=== PATIENT | female | born 1945 | race Caucasian/White ===

== ENCOUNTER → 2017-07-19 | Outpatient (CLI) | payer OTHER ==
[~2017-07-19] MED LIST: ASPI1TAB83 PO; FERR325T5 PO; FURO-85 PO; L-ME1CAP3 PO; LISI-461 PO; LPT10 PO; LXP/20 PO; MAGN400T6 PO; MIRA1TAB3 PO; OMEG10007 PO; OMEP20CA9 PO; REPA1TAB42 PO; ROPI1TAB29 PO; TRAZ50TA35 PO; VLTG EXT
--- NOTE | 2017-07-19 13:35 | MAMMOGRAPHY REPORT ---
BILATERAL DIGITAL SCREENING MAMMOGRAM WITH CAD: 07/19/2017 CLINICAL HISTORY: Routine screening. Patient has no complaints. TECHNIQUE: Current study was also evaluated with a Computer Aided Detection (CAD) system. Bilateral CC and MLO views were obtained. COMPARISON: Comparison is made to exams dated: 07/17/2016 mammogram, 01/23/2016 mammogram, 07/21/2015 m ammogram, 07/15/2015 mammogram, 07/12/2014 mammogram, and 02/08/2014 mammogram - [facility] enter. BREAST COMPOSITION: There are scattered areas of fibroglandular density in both breasts. FINDINGS: No suspicious masses, calcifications, or areas of architectural distortion are noted in ei ther breast. There has been no significant interval change compared to prior exams. Scattered bilater al benign-appearing calcifications are not significantly changed. A biopsy marker clip is again note d within the left breast. IMPRESSION: ACR BI-RADS CATEGORY 2: BENIGN There is no mammographic evidence of malignancy. A 1 year screening mammogram is recommended. The pa tient will receive written notification of the results. Approximately 10% of breast cancers are not detected with mammography. A negative mammographic report should not delay biopsy if a clinically suggestive mass is present. Gina Zhang M.D. /:07/19/2017 07:51:39 Pricer Bagger: Magnolia SCHMID(Marta)(Von)(BD), [facility] letter sent: Normal 1/2 BI-RADS Code: ACR BI-RADS Category 2: Benign
== END | disposition home or self-care (01) ==
LOC: C.MAMM 07:26
PROVIDERS: ATTEND Family Medicine
DX: Z12.31 Encounter for screening mammogram for malignant neoplasm of breast (principal)

== ENCOUNTER 2019-12-08 09:54 | Inpatient (IN) ==
--- NOTE | 2019-11-10 13:22 | PAT Medication Instructions ---
Medication Instructions Date of Service November 10, 2019 Home Medications Medication Instructions Recorded oxybutynin chloride 5 mg tablet 5 mg PO TID #270 tab 10/26/19 mirabegron 50 mg tablet,extended release 24 hr 50 mg PO Q2D onabotulinumtoxinA 100 unit solution for injection 1 unit SUBCUT UD oxybutynin chloride 5 mg tablet 5 mg PO TID aspirin [Aspirin Low Dose] 81 mg PO HS atorvastatin 10 mg PO QPM diphenhydramine HCl 25 mg PO DAILY PRN dulaglutide [Trulicity] 0.75 mg SUBCUT Q10D gabapentin 200 mg PO HS lansoprazole 15 mg PO QAM lisinopril 10 mg PO QAM magnesium oxide 500 mg PO BID metformin 500 mg PO QPM vm-nc-ad1-xmj-ocd-wlh-flx-lact [Dry Eye Formula] 1 cap PO TID valacyclovir [Valtrex] 500 mg PO QAM [PreserVision AREDS-2] 1 tab PO QAM vitamin B complex 1 tab PO QAM Continue as directed onabotulinumtoxinA 100 unit solution for injection 1 unit SUBCUT UD dulaglutide [Trulicity] 0.75 mg SUBCUT Q10D ASK your surgeon for instructions aspirin [Aspirin Low Dose] 81 mg PO HS DO NOT take the morning of surgery mirabegron 50 mg tablet,extended release 24 hr 50 mg PO Q2D oxybutynin chloride 5 mg tablet 5 mg PO TID diphenhydramine HCl 25 mg PO DAILY PRN lisinopril 10 mg PO QAM magnesium oxide 500 mg PO BID valacyclovir [Valtrex] 500 mg PO QAM Take morning of surgery With a small sip of water, OTHERWISE NOTHING TO EAT OR DRINK AFTER MIDNIGHT: lansoprazole 15 mg PO QAM valacyclovir [Valtrex] 500 mg PO QAM Take evening before surgery mirabegron 50 mg tablet,extended release 24 hr 50 mg PO Q2D oxybutynin chloride 5 mg tablet 5 mg PO TID aspirin [Aspirin Low Dose] 81 mg PO HS atorvastatin 10 mg PO QPM diphenhydramine HCl 25 mg PO DAILY PRN (if needed) gabapentin 200 mg PO HS magnesium oxide 500 mg PO BID metformin 500 mg PO QPM xx-ml-qw0-ncx-fij-ymt-flx-lact [Dry Eye Formula] 1 cap PO TID Other Notes If you have any questions please call us at [phone] or [phone] or [phone] or [phone]
--- NOTE | 2019-11-10 14:48 | Anesthesiology Consultation ---
Date of Service November 10, 2019 Assessment & Plan (1) Encounter for pre-operative examination: CHECK BSG AM DOS Chart Review Chart Review: Acceptable Risk for Surgery and Patient seen in Pre Admission Testing Teaching & Discussion Instructed NPO after midnight before surgery, except medications with 15 cc of water. Medication instructions provided according to the PAT guidelines. History Height/Weight Height: 5 ft 1 in Weight: 81.647 kg Allergies Allergy/AdvReac Type Severity Reaction Status Date / Time No Known Drug Allergies Allergy Verified 11/09/19 15:38 Medications Home Medications Medication Instructions Recorded Confirmed Last Taken mirabegron 50 mg tablet,extended 50 mg PO Q2D #90 tab 08/20/19 11/09/19 Unknown release 24 hr onabotulinumtoxinA 100 unit 1 unit SUBCUT UD #1 ea 08/20/19 11/09/19 Unknown solution for injection oxybutynin chloride 5 mg tablet 5 mg PO TID #270 tab 10/26/19 11/09/19 Unknown aspirin [Aspirin Low Dose] 81 mg PO HS 11/09/19 11/09/19 Unknown atorvastatin 10 mg PO QPM 11/09/19 11/09/19 Unknown diphenhydramine HCl 25 mg PO DAILY PRN 11/09/19 11/09/19 Unknown dulaglutide [Trulicity] 0.75 mg SUBCUT Q10D 11/09/19 11/09/19 Unknown gabapentin 200 mg PO HS 11/09/19 11/09/19 Unknown lansoprazole 15 mg PO QAM 11/09/19 11/09/19 Unknown lisinopril 10 mg PO QAM 11/09/19 11/09/19 Unknown magnesium oxide 500 mg PO BID 11/09/19 11/09/19 Unknown metformin 500 mg PO QPM 11/09/19 11/09/19 Unknown xu-zq-gf9-rxr-ihq-vkd-flx-lact 1 cap PO TID 11/09/19 11/09/19 Unknown [Dry Eye Formula] valacyclovir [Valtrex] 500 mg PO QAM 11/09/19 11/09/19 Unknown vit C,U-Zr-hhsqw-lutein-zeaxan 1 tab PO QAM 11/09/19 11/09/19 Unknown [PreserVision AREDS-2] vitamin B complex 1 tab PO QAM 11/09/19 11/09/19 Unknown Past Medical History Medical History Abnormal EKG Per cardiology, "chronic age undetermined septal infarction pattern, this is been evaluated in the past, and has been unchanged since 2008." Anxiety Depression Diabetes mellitus, type 2 NIDDM GERD (gastroesophageal reflux disease) History of esophageal dilatation Hyperlipidemia Hypertension Migraine hx Pancreatitis (Chronic) ~2014 RLS (restless legs syndrome) (Chronic) Schatzki's ring (Chronic) Sleep apnea cpap Syncope Three episodes in 2015. Cardiac workup included echo, event monitor and tilt- table test, all negative. Determined to be "swallow syncope," as episodes were preceded by patient ingesting hot liquid. Follows with [facility] in [place], Dr. Cristiano Greenfield--office note 09/28/19 scanned to EMR). 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 No episodes since 2014. Exercise / Class Metabolic Activity II 4-5 Yardwork/Stairs/Walk up hill Past Family History Family History Unknown Heart disease Lymphoma Father Hypertension Other No family history of adverse response to anesthesia Past Surgical History Surgical History H/O breast biopsy L breast, metal marker remains H/O release of tendon right wrist H/O tubal ligation History of adenoidectomy History of cardiac cath 2008 @ [facility]. no stents History of carpal tunnel release right History of colonoscopy History of endoscopic sinus surgery History of esophagogastroduodenoscopy (EGD) History of open reduction and internal fixation (ORIF) procedure right wrist Hx of tonsillectomy S/P Botox injection into bladder for urinary incontinence Past Anesthesia History No Hx of Anesthesia Complications and No Family Hx of Anesthesia Complications (other than PONV) History of PONV No Hx of PONV and No Hx of Motion Sickness Social History Smoking Status: Never smoker Do You Dip or Chew Tobacco: No Hx Alcohol Use: Yes Alcohol type: beer, wine and hard liquor alcohol intake frequency: a few times a week Hx Substance Use: No substance use type: does not use Review of Systems Pt denies any recent chest pain, shortness of breath, palpitations, cough, fever or URI. Physical Exam Vital Signs BP: 121/78 P: 77bpm SPO2: 98% RA T: 97.9 F R: 16 ENMT Mouth: + dental restorations (few implants); no chipped teeth and no loose teeth Thyromental Distance: > or= 3.5 Finger Breadths (3.5) Mallampati Class: I Neck normal visual inspection; neck extension not limited Respiratory normal respiratory effort Auscultation: lungs clear to auscultation bilaterally Cardiovascular Rate/Rhythm: regular rate and regular rhythm Heart Sounds: no murmur Vessels: no carotid bruit Extremities: no edema Testing Laboratory Results 11/10/19 15:00 11/10/19 15:00 PT 10.3 Seconds (9.0-12.0) 11/10/19 15:00 INR 1.0 (0.9-1.1) 11/10/19 15:00 APTT 24.8 Seconds (21.0-31.0) 11/10/19 15:00 Electrocardiogram Date: 05/12/19 Findings: + NSR @ (65bpm) Anterolateral infarct (cited on or before 09/13/09). No significant change from 05/07/18. Chest X-Ray Date: 11/10/19 Findings: + NAD Chronic interstitial thickening. Echocardiogram Date: 02/14/15 EF: > 70% 1. A complete two-dimensional transthoracic echocardiogram was performed (2D, M- mode, Doppler and color flow Doppler). 2. The study was technically difficult, but visualization was adequate with the administration of Definity ultrasound contrast. 3. The left ventricular wall motion is normal. 4. No regional wall motion abnormalities noted. 5. The LV Ejection Fraction = >70 %. 6. There is normal left ventricular wall thickness. 7. There is mild mitral regurgitation. 8. Diastolic dysfunction, Grade II (pseudonormalization pattern). 9. Compared to the prior study dated 01/28/14, the trace MR noted in 2013 is now felt to be mild in severity.
--- NOTE | 2019-11-10 15:43 | XRay Report ---
TWO VIEW CHEST CLINICAL HISTORY: Preoperative examination. FINDINGS: PA and lateral chest radiographs are compared to study dated 12/20/2015 and correlated with chest CT dated 11/13/2015. The heart is top normal for projection. The pulmonary vasculature is nonco ngested. Chronic interstitial thickening is similar to previous. There is bibasilar scarring/atelecta sis. No airspace consolidation or pleural effusion is identified. There is no pneumothorax. The skele luly structures are osteopenic. Degenerative change and hyperkyphosis are noted in the thoracic spine. The bony thorax appears intact. IMPRESSION: No active disease in the chest. Electronically signed by: To Nicole M.D. 11/10/2019 3:42 PM
[2019-11-10 16:08] LABS: Basophils # (auto) 0.03 K/uL (0-0.2); Basophils % (auto) 0.4 %; Eosinophils # (auto) 0.35 K/uL (0-0.5); Eosinophils % (auto) 4.2 %; Hematocrit (blood only) 42.8 % (37-47); Hemoglobin 14.7 g/dL (12.0-16.0); Immature Granulocytes # (auto) 0.02 K/uL (0.00-0.02); Immature Granulocytes % (auto) 0.2 %; Lymphocytes # (auto) 3.04 K/uL (1.2-3.4); Lymphocytes % (auto) 36.8 %; Mean Corpuscular Hemoglobin 33.6 pg (25-34); Mean Corpuscular Hgb Conc 34.3 g/dL (32-36); Mean Corpuscular Volume 97.9 fL (80-100); Mean Platelet Volume 9.4 fL (7.4-10.4); Monocytes # (auto) 0.85 K/uL (0.11-0.59); Monocytes % (auto) 10.3 %; Neutrophils # (auto) 3.97 K/uL (1.4-6.5); Neutrophils % (auto) 48.1 %; Platelet Count 187 K/uL (130-400); RDW Coefficient of Variation 12.3 % (11.5-14.5); RDW Standard Deviation 44.2 fL (36.4-46.3); Red Blood Count 4.37 M/uL (4.2-5.4); White Blood Count 8.26 K/uL (4.8-10.8)
[2019-11-10 16:13] LABS: BUN Creatinine Ratio 21.8 (10-20); Est GFR (African American) 88.8; Est GFR (Non-African American) 76.6; Potassium 4.4 mmol/L (3.5-5.1)
[2019-11-10 16:18] LABS: Partial Thromboplastin Ratio 0.9; Partial Thromboplastin Time 24.8 Seconds (21.0-31.0); Prothrombin Time 10.3 Seconds (9.0-12.0)
--- NOTE | 2019-12-05 12:13 | History and Physical Report ---
DATE OF ADMISSION: 12/08/2019 CHIEF COMPLAINT: Right ankle pain. HISTORY OF PRESENT ILLNESS: The patient is a 74-year-old female diabetic who I have been treating for the past 4 years for ankle degenerative joint disease. We have been treating her with extensive conservative treatment including various medicines, injections, rocker bottom shoes, etc. Symptoms were pretty manageable initially but become less manageable over the past year. Pretty minimal response to injection. Her ankle hurts all the time. She limps when she walks. The more she walks, the more it hurts. She would like to have her ankle fixed/views. PAST MEDICAL HISTORY: 1. Diabetes x25 years. 2. Hypertension. 3. Elevated cholesterol. 4. Sleep apnea with CPAP machine. 5. Gastroesophageal reflux disease. 6. Obesity with a BMI of 34. 7. Back and neck pain. PAST SURGICAL HISTORY: Includes: 1. Right wrist fracture treated with ORIF in 1999. 2. A carpal tunnel release done at that time of wrist fracture. 3. De Quervain's release in 2012. 3. Tubal ligation 1971. 4. Tonsillectomy in 1951. ALLERGIES: None. CURRENT MEDICINES: Include: 1. Trulicity. 2. Metformin. 3. Atorvastatin. 4. Toviaz. 5. Lisinopril. 6. Valacyclovir. 7. Magnesium. 8. Fish oil. 9. Baby aspirin. 10. Vitamin B complex. 11. AREDS2. SOCIAL HISTORY: A 74-year-old female. She does not smoke. No significant alcohol intake. FAMILY HISTORY: Noncontributory. REVIEW OF SYSTEMS: Negative for DVT or PE. She has been a long-term diabetic and says her hemoglobin A1c is well controlled. Denies any current chest pain or shortness of breath. No history of DVT or PE. No known bleeding problems. PHYSICAL EXAMINATION: GENERAL: Reveals a healthy, pleasant middle-aged female, looks to be in pretty good health. HEENT: Benign. NECK: Supple, no lymphadenopathy. LUNGS: Clear to auscultation. HEART: Has a regular rate and rhythm. ABDOMEN: Soft, nontender, nondistended. EXTREMITIES: Grossly neurovascularly intact except as follows. Examination of the right ankle reveals patient ambulates with a limp. She does clearly favor this ankle. She has fairly neutral alignment to her ankle. She has got bony hypertrophy diffusely. She is tender diffusely. Motion is limited with about neutral dorsiflexion and plantarflexion to 20 degrees. She is neurologically intact. X-RAYS: X-rays of the right ankle revealed advanced ankle degenerative joint disease. She has complete loss of her joint space. Fairly good positioning and alignment otherwise. Subtalar joint looks pretty good. ASSESSMENT: A 74-year-old female diabetic with advanced right ankle degenerative joint disease. She has failed conservative treatment and would like to have her right ankle fused. We did talk about ankle replacement, but she preferred effusion. PLAN: We are going to take her to the operating room and do a right ankle fusion/arthrodesis. We will keep her in the hospital overnight. The risks and benefits of this procedure were explained to the patient including but not limited to DVT, PE, , infection, neurological injury, vascular injury, bleeding problem, pain, limited range of motion, stiffness, failure to relieve symptoms, incomplete relief of symptoms, need for further surgery in future, fracture, leg length inequality, nerve palsy, etc. The patient understands and decided to proceed. Informed consent was obtained. We gave her a script for a scooter for postoperative mobilization. We will likely give her a script for a wheelchair as well. She is planning to be discharged to home. We will keep her in the hospital overnight for pain control.
[~2019-12-08 09:54] MED LIST changes: +ACETAMINOPHEN 500 MG TAB PO SCH; -ASPI1TAB83 PO; +CEFAZOLIN 2000MG 2,000 MG/15 ML SYR IV SCH; -FERR325T5 PO; -FURO-85 PO; -L-ME1CAP3 PO; -LISI-461 PO; -LPT10 PO; +LR 15ML/HR IV SCH; +LR 60ML/HR IV SCH; -LXP/20 PO; -MAGN400T6 PO; -MIRA1TAB3 PO; -OMEG10007 PO; -OMEP20CA9 PO; -REPA1TAB42 PO; -ROPI1TAB29 PO; +ROPIVACAINE 0.5% 5 MG/ML 30 ML VIAL ONE; -TRAZ50TA35 PO; -VLTG EXT
--- NOTE | 2019-12-08 10:48 | History & Physical Bridge Note ---
Date of Service December 08, 2019 History & Physical Bridge Note I have examined the patient, reviewed the History & Physical and in the interval since the performance of the History & Physical I have noted the following changes of clinical significance: no changes noted
[2019-12-08] MEDS ORDERED: ONDANSETRON INJ 2 MG/ML 2 ML VIAL ONE (11:44)
[2019-12-08] MEDS ORDERED: MIDAZOLAM HCL 1 MG/ML 2ML VIAL ONE (11:44)
[2019-12-08] MEDS ORDERED: DEXAMETHASONE SOD INJ 4 MG/ML VIAL ONE (11:44)
[2019-12-08] MEDS ORDERED: fentaNYL citrate 100 MCG/2 ML VIAL ONE ×3 (11:44→15:06)
[2019-12-08] MEDS ORDERED: PROPOFOL IV EMULSION 10 MG/ML 20 ML VIAL IV ONE ×2 (11:44→14:14)
[2019-12-08] MEDS ORDERED: LIDOCAINE HCL 2% 2 ML VIAL/AMP(20MG/ML) INFIL ONE (11:44)
[2019-12-08] MEDS ORDERED: ATROPINE SULFATE 0.1 MG/ML 10ML SYR IV PRN (12:44)
[2019-12-08] MEDS ORDERED: LABETALOL HCL IV 5 MG/ML 20ML IV PRN (12:44)
[2019-12-08] MEDS ORDERED: ONDANSETRON INJ 2 MG/ML 2 ML VIAL IV PRN ×2 (12:44→17:46)
[2019-12-08] MEDS ORDERED: fentaNYL citrate 100 MCG/2 ML VIAL IV PRN (12:44)
[2019-12-08] MEDS ORDERED: BACITRACIN INJ 50,000 UNIT VIAL ONE ×2 (13:07→15:35)
[2019-12-08] MEDS ORDERED: BUPIVACAINE/EPINEPHRINE 0.5% MPF 1:200,000 10 ML VIAL ONE (13:14)
[2019-12-08] MEDS ORDERED: GLYCOPYRROLATE 0.2 MG/ML VIAL ONE (13:33)
[2019-12-08] MEDS ORDERED: NEOSTIGMINE METHYLSULFATE 5 MG/5 ML SYR ONE (13:33)
[2019-12-08] MEDS ORDERED: ePHEDrine sulfate 50 MG/ML SYR ONE (13:47)
[2019-12-08] MEDS ORDERED: PHENYLEPHRINE 100MCG/ML 5ML SYR ONE (13:47)
[2019-12-08] MEDS ORDERED: THROMBIN FOR SOLN 20000 UNIT KIT ONE (15:46)
[2019-12-08] MEDS ORDERED: GELATIN SPONGE SZ 100 ONE (15:46)
--- NOTE | 2019-12-08 15:46 | Fluoroscopy Report ---
FL ankle RT min 3V RTN CLINICAL HISTORY: RT ANKLE FUSION COMPARISON STUDY: None FLUOROSCOPY TIME: 34 seconds NUMBER OF FLUOROSCOPIC IMAGES: 3 FINDINGS: Findings consistent with resection of the distal fibula. Multiple screws traversing the talocalcaneal joint. This is consistent with that of a fusion type pro cedure. Alignment appears to be anatomic. IMPRESSION: Anatomic alignment post right ankle fusion. ACT 112: Negative or not required by law. The above report was generated using voice recognition software. It may contain grammatical, syntax or spelling errors. Electronically signed by: Jairo Cottrell M.D. 12/08/2019 3:45 PM
[2019-12-08] MEDS ORDERED: GELATIN SPONGE SZ 100 EXT PRN (16:09)
[2019-12-08] MEDS ORDERED: THROMBIN 5000 UNITS KIT TOP SCH (16:15)
--- NOTE | 2019-12-08 16:28 | Post Operative Brief Note ---
PG Immediate Post Op with CF Date of Surgery December 08, 2019 Pre & Post Diagnosis Operation Date: 12/08/19 12:30 Pre-Op Diagnosis: Right ankle degenerative joint disease Post-Op Diagnosis: Right ankle degenerative joint disease I identified the patient and participated in the time-out.: Yes Procedure Operation Date: 12/08/19 12:30 Actual Procedures p Right Ankle Fusion(Right) - Ivan Jacobs MD Surgeon Ivan Jacobs MD Automatic Die Cutting Machine Operator Rojelio, PAC Estimated Blood Loss 100 Findings Consistent with Post-Op Diagnosis Fluids 1400 cc Specimens Specimen Description: None, as per surgeon Anesthesia Type General Regional Complications none Disposition Accompanied Patient To Recovery: No Disposition: Recovery Room
--- NOTE | 2019-12-08 17:14 | Anesthesiology Progress Note ---
Date of Service December 08, 2019 Anesthesia Post Procedure Vital Signs Vital Signs: Temp Pulse Pulse Resp BP Pulse Ox 12/08/19 17:00 72 12 118/63 98 12/08/19 16:50 94 H 15 131/70 100 12/08/19 16:40 75 18 118/75 99 12/08/19 16:32 36.3 C L 87 17 116/78 99 12/08/19 11:10 36.8 C 80 18 145/91 H 97 Pain Intensity Right Ankle: Pain Intensity: 0 Transfer of Care Handoff Completed per policy Notes Mental Status: alert / awake / arousable Patient Amnestic to Procedure: Yes Nausea / Vomiting: adequately controlled Pain: adequately controlled Airway Patency, RR, SpO2: stable & adequate BP & HR: stable & adequate Hydration State: stable & adequate Anesthetic Complications: no major complications apparent and Pt Satisfied with anesthetic care
[2019-12-08] MEDS: SODIUM CHLORIDE 0.9% 1000ML 1,000 ML IV SCH (17:20)
[2019-12-08] MEDS ORDERED: GLUCOSE 10 TABS/TUBE PO PRN (17:46)
[2019-12-08] MEDS ORDERED: METOCLOPRAMIDE HCL INJ 5 MG/ML 2 ML VIAL IV PRN (17:46)
[2019-12-08] MEDS ORDERED: GLUCAGON FOR INJ 1 MG VIAL SQ PRN (17:46)
[2019-12-08] MEDS ORDERED: GLUCOSE 40% GEL 15 GM TUBE PO PRN (17:46)
[2019-12-08] MEDS ORDERED: DEXTROSE 50% 50 ML SYRINGE IV PRN (17:46)
[2019-12-08] MEDS ORDERED: CARBOHYDRATES FOR HYPOGLYCEMIA PO PRN (17:46)
[2019-12-08] MEDS ORDERED: NON-FORMULARY MEDICATION (Dulaglutide [Trulicity] 0.75 MG) SQ SCH (17:46)
[2019-12-08] MEDS ORDERED: PHARMACY GLYCEMIC MGMT CONSULT STA (17:46)
[2019-12-08] MEDS ORDERED: HYDROmorphone HCL 2 MG TAB PO PRN (17:46)
[2019-12-08] MEDS ORDERED: NALOXONE HCL 0.4 MG/1 ML VIAL/CARP IV PRN (17:46)
[2019-12-08] MEDS ORDERED: MAGNESIUM HYDROXIDE SUSP 30 ML UDC PO PRN (17:46)
[2019-12-08] MEDS ORDERED: bisacodyL 10 MG SUPP PR PRN (17:46)
[2019-12-08] MEDS ORDERED: ALUMINUM/MAGNESIUM SUSP 30 ML UDC PO PRN (17:46)
[2019-12-08] MEDS ORDERED: HYDROmorphone INJ 0.5 MG/0.5 ML SYR IV PRN (17:46)
[2019-12-08] MEDS ORDERED: PHARMACY GLYCEMIC MGMT CONSULT PRN (17:59)
[2019-12-08] MEDS: ASCORBIC ACID 500 MG TAB PO SCH (19:02)
[2019-12-08] MEDS: KETOROLAC TROMETHAMINE 15 MG/ML VIAL IV SCH (19:36)
--- NOTE | 2019-12-08 20:51 | Pharmacy Report ---
Pharmacy Glycemic Short Note 2 - Date of Service December 08, 2019 - Glycemic Short BSG Results (Last 24 hours): 12/08/19 12/08/19 12/08/19 10:28 16:36 17:28 POC Glucose 109 H 146 H 142 H OUTPATIENT ANTIDIABETIC REGIMEN: * Trulicity 0.75mg & Metformin ASSESSMENT: * Type 2 DM S/P Right ankle fusion. She received Dexamethasone 4mg IV x1. Blood sugars thus far have been close to goal. Since patient did receive dexamethasone will set parameters between stress of 2 and 3, with overnight checks. Will adjust based on BSG's. * Hemoglobin A1C pending with am labs. * Ordered T2DM diet PLAN FOR INPATIENT GLYCEMIC CONTROL: * Hold outpatient oral diabetes medications * Bolus insulin * NovoLog per scale ACHS or Q6hrs while NPO * Goal Range: Low 110 mg/dL - High 140 mg/dL * Correction Factor: 25 mg/dL/unit * Nutritional / Prandial insulin per carb ratio of 1 unit per 8 grams CHO consumed * Will add 0000,0400 checks
[2019-12-08] MEDS ORDERED: GABAPENTIN 100 MG CAP PO SCH (21:00)
[2019-12-08] MEDS ORDERED: ATORVASTATIN 10 MG TAB PO SCH (21:00)
[2019-12-08] MEDS ORDERED: SENNA 8.6 MG TAB PO SCH (21:00)
[2019-12-08] MEDS ORDERED: [UNRECOGNIZED DRUG - OTHER] PO SCH (21:00)
[2019-12-08] MEDS: ASPIRIN 81 MG ECTAB PO SCH (21:19)
[2019-12-08] MEDS: OXYBUTYNIN CHLORIDE 5 MG TAB PO SCH (21:19)
[2019-12-08] MEDS: DOCUSATE SODIUM 100 MG CAP PO SCH (21:19)
[2019-12-08] MEDS: MAGNESIUM OXIDE 400 MG TAB PO SCH (21:19)
[2019-12-08] MEDS: CEFAZOLIN 2000MG 2,000 MG/15 ML SYR IV SCH (21:19)
[2019-12-08] MEDS: TAPENTADOL HCL ER 50 MG TABCR PO SCH (21:19)
[2019-12-08] MEDS: ACETAMINOPHEN 500 MG TAB PO SCH (21:19)
[2019-12-08] MEDS: INSULIN ASPART 100 UNITS/ML 3 ML PEN SC SCH (21:50)
[2019-12-08] MEDS ORDERED: INSULIN GLARGINE SOLOSTAR 100 UNITS/ML 3 ML PEN SC ONE (22:00)
[2019-12-09] MEDS: KETOROLAC TROMETHAMINE 15 MG/ML VIAL IV SCH ×3 (00:01→13:13)
[2019-12-09] MEDS: INSULIN ASPART 100 UNITS/ML 3 ML PEN SC SCH ×4 (00:12→13:14)
[2019-12-09] MEDS ORDERED: COUGH DROP (SUGAR FREE) LOZ 24 LOZ/1 BOX BUCCAL ONE (00:15)
[2019-12-09] MEDS ORDERED: COUGH DROP (SUGAR FREE) LOZ 24 LOZ/1 BOX BUCCAL PRN (00:49)
[2019-12-09] MEDS: SODIUM CHLORIDE 0.9% 1000ML 1,000 ML IV SCH (03:02)
[2019-12-09] MEDS: CEFAZOLIN 2000MG 2,000 MG/15 ML SYR IV SCH (03:04)
[2019-12-09] MEDS: ACETAMINOPHEN 500 MG TAB PO SCH ×2 (05:25→13:13)
[2019-12-09 06:56] LABS: Estimated Average Glucose 111 mg/dl; Hemoglobin A1C 5.5 % (4.5-5.6)
--- NOTE | 2019-12-09 07:54 | Anesthesiology Progress Note ---
Date of Service December 09, 2019 Anesthesia Post Procedure Vital Signs Vital Signs: Temp Pulse Pulse Resp BP Pulse Ox 12/09/19 07:33 36.6 C 74 15 102/66 97 12/09/19 03:08 36.4 C L 86 14 103/64 96 12/08/19 23:26 36.9 C 101 H 16 99/61 L 93 12/08/19 20:39 36.8 C 82 16 102/62 93 12/08/19 19:22 36.6 C 87 15 121/72 94 12/08/19 18:41 36.5 C 71 16 109/68 99 12/08/19 17:54 36.8 C 67 16 111/65 96 12/08/19 17:20 36.8 C 76 15 118/71 99 12/08/19 17:10 36.4 C L 69 17 128/65 97 12/08/19 17:00 72 12 118/63 98 12/08/19 16:50 94 H 15 131/70 100 12/08/19 16:40 75 18 118/75 99 12/08/19 16:32 36.3 C L 87 17 116/78 99 12/08/19 11:10 36.8 C 80 18 145/91 H 97 Pain Intensity Right Ankle: Pain Intensity: 0 Notes Mental Status: alert / awake / arousable and participated in evaluation Patient Amnestic to Procedure: Yes Nausea / Vomiting: adequately controlled Pain: adequately controlled Airway Patency, RR, SpO2: stable & adequate BP & HR: stable & adequate Hydration State: stable & adequate Anesthetic Complications: no major complications apparent
[2019-12-09] MEDS ORDERED: lisinopriL 10 MG TAB PO SCH (09:00)
[2019-12-09] MEDS ORDERED: VALACYCLOVIR HCL 500 MG TABLET PO SCH (09:00)
[2019-12-09] MEDS ORDERED: PANTOprazole 40 MG TAB PO SCH (09:00)
[2019-12-09] MEDS ORDERED: CEROVITE ADV FORMULA TAB PO SCH (09:00)
[2019-12-09] MEDS ORDERED: MULTIVITAMIN TAB PO SCH (09:00)
[2019-12-09] MEDS ORDERED: VITAMIN B COMPLEX TAB PO SCH (09:00)
[2019-12-09] MEDS: MAGNESIUM OXIDE 400 MG TAB PO SCH (09:08)
[2019-12-09] MEDS: ASPIRIN 81 MG ECTAB PO SCH (09:08)
[2019-12-09] MEDS: ASCORBIC ACID 500 MG TAB PO SCH (09:09)
[2019-12-09] MEDS: OXYBUTYNIN CHLORIDE 5 MG TAB PO SCH ×2 (09:09→13:12)
[2019-12-09] MEDS: DOCUSATE SODIUM 100 MG CAP PO SCH (09:10)
[2019-12-09] MEDS: TAPENTADOL HCL ER 50 MG TABCR PO SCH (09:23)
--- NOTE | 2019-12-09 11:29 | Pharmacy Report ---
Pharmacy Glycemic Short Note 2 - Date of Service December 09, 2019 - Glycemic Short BSG Results (Last 24 hours): 12/08/19 12/08/19 12/08/19 16:36 17:28 21:27 POC Glucose 146 H 142 H 162 H 12/09/19 12/09/19 12/09/19 00:04 03:42 08:14 POC Glucose 141 H 111 H 106 H OUTPATIENT ANTIDIABETIC REGIMEN: * Trulicity 0.75mg & Metformin ASSESSMENT: 12/09 * Mr. Burr ended up receiving 12 units of basal insulin last night when BSGs tobin above 150 mg/dL at HS * Fasting today = 106 mg/dL; no further basal insulin will be ordered today * A1c shows excellent outpatient control and patient would have Trulicity on board at this time * Expect Decadron to wear off about lunchtime today so will loosen bolus insulin parameters 12/08 * Type 2 DM S/P Right ankle fusion. She received Dexamethasone 4mg IV x1. Blood sugars thus far have been close to goal. Since patient did receive dexamethasone will set parameters between stress of 2 and 3, with overnight checks. Will adjust based on BSG's. * Hemoglobin A1C pending with am labs. * Ordered T2DM diet PLAN FOR INPATIENT GLYCEMIC CONTROL: * Hold outpatient oral diabetes medications - resume tomorrow if SCr stable, will check in AM * No further basal insulin * Bolus insulin - loosen CF/CR * NovoLog per scale ACHS or Q6hrs while NPO * Goal Range: Low 110 mg/dL - High 140 mg/dL * Correction Factor: 30 mg/dL/unit * Nutritional / Prandial insulin per carb ratio of 1 unit per 15 grams CHO consumed Discharge Recommendations: * A1c = 5.5% on 12/09/19 * Goal A1c < 7% based on age/comorbidities * Resume outpatient regimen on discharge
--- NOTE | 2019-12-09 18:47 | Operative Report ---
Post Operative Report Pre & Post Diagnosis Operation Date: 12/08/19 12:30 Pre-Op Diagnosis: Right ankle degenerative joint disease Post-Op Diagnosis: Right ankle degenerative joint disease I identified the patient and participated in the time-out.: Yes Procedure Operation Date: 12/08/19 12:30 Actual Procedures p Right Ankle Fusion(Right) - Ivan Jacobs MD Surgeon Ivan Jacobs MD Equipment Cleaner And Tester Rojelio, PAC Estimated Blood Loss 100 Findings Consistent with Post-Op Diagnosis Specimens None. Drains None. Anesthesia Type General Regional Complications none Disposition Accompanied Patient To Recovery: No Disposition: Recovery Room Indications Patient is a 74-year-old female is had a a long history of right ankle pain discomfort is gradually gotten worse over the past 4 years. We would treat her conservatively with a bracing and injections which became less successful over time. She elected proceed with a right ankle arthrodesis. Description of Procedure Operative implants consist of: 1. Synthes 7.3 mm partially-threaded/long threaded stainless steel cannulated screw. 2. Synthes 6.5 partially threaded/long threaded stainless steel screw/cannulated. 3. Synthes 6.5 partially-threaded short threaded stainless steel cannulated screw. 4. Synthes 4.0 partially threaded cancellus screw x2. Patient taken to the operating room identified and placed in the operating table supine position protectors were properly padded. IV antibiotics arrived by anesthesia team. A popliteal block and abductor canal block had provided in the holding area. General anesthetic was implemented. The patient was then placed in the semilateral position on a beanbag. All contact areas were meticulously padded. The right lower extremity was then prepped and draped in usual sterile fashion. The right leg was elevated exsanguinated exsanguinated with use of an Esmarch and the tourniquet was placed at 300 mmHg. A direct lateral approach to the fibula was then performed with a 10 to 15 cm incision beginning about 10 cm proximal tip of the fibula and then extending to the fibula and then anteriorly towards the cuboid and base of the fourth metatarsal. Sharp dissection Through subcutaneous tissue directly down the fibula. The fibula was skeletonized and then osteotomized about 8 cm proximal to the tip of the fibula. The fibula was then removed take to the back table and cut in half. At the cancellus bone from the medial half was removed and used for later graft packing. The lateral side was preserved and antibiotics of solution until ready to placed laterally as a bone plate. The lateral ankle was exposed. With use of a lamina kiln remover, sharp curette, and a bur we debrided the ankle joint of all cartilage down to the subchondral bleeding bone. I also was debrided the lateral aspect of the tibia as well as the lateral surface of the talus. Attention drawn medially. A 3 cm incision made over the anterior medial joint line to expose the medial gutter. I used a curette debride debride the medial malleolus as well as the medial border of the talus. Once this was complete I irrigated the wound extensively. We then reduced the ankle in appropriate position in about 5 degrees of valgus, 10 degrees of external rotation in neutral dorsiflexion. I then fixed it through the lateral process of the talus into the posterior aspect the tibia with a single guidewire for the 6.5 cannulated screw. I then made a stab incision several centimeters above the ankle joint posteriorly and just lateral to the Achilles tendon then placed a guidewire through the posterior tibia into the talus into the talar neck. I did have to readjust this in order to work around the other wire slightly. Position was verified I placed a 7.3 cannulated screw with a washer over the posterior guidewire which provide excellent fixation. I placed a 6.5 partially-threaded cannulated screw over the wire through the lateral process of the talus. I then made a stab incision over the medial side of the ankle about 5 cm proximal to the joint and placed a guidewire from the medial tibia and into the anterior talus. A 6.5 partially- threaded cancellus screw was placed over the guidewire provide excellent fixation. Some final x-rays were obtained and all hardware was appropriately positioned. Of note, I did pack the medial gutter as well as the some of the ankle joint with some the cancellus graft before placing the screws. I then placed the fibular graft over the lateral aspect of the ankle and fixed it proximally with a single 4.0 partially-threaded cancellus screw and then fixed distally into the talus with a similar 4.0 partially-threaded cancellus screw. I then verified the position of these screws. I then packed the lateral ankle with the remaining cancellus bone graft. I injected locally with 30 cc of half percent Marcaine with epinephrine. The tourniquet was then let down. The soft tissues of both wounds were then closed with a 2-0 Vicryl suture in a [id number] fashion. The subcutaneous tissues of all wounds including the stab incision was closed with a 2-0 Vicryl suture in buried fashion and then the skin was closed with 3-0 nylon suture in a simple fashion. The leg was then cleaned and dried a sterile dressing composed of Xeroform, 4 x 4's, ABD pads, st erile cast padding, and a well-padded posterior and stirrup splint were applied. The patient then brought out of [facility] and transferred to the recovery in stable condition. Patient tolerated procedure well there are no complications I attest to the content of the Intraoperative Record and any orders documented therein. Any exceptions are noted below.
--- NOTE | 2019-12-09 19:12 | Progress Note ---
DATE: 12/09/2019 SUBJECTIVE: A 74-year-old female postop day 1 from a right ankle arthrodesis. She is doing remarkably well. Really not having any pain. No chest pain or shortness of breath. Not feeling dizzy or lightheaded. OBJECTIVE: VITAL SIGNS: Temperature 36.9. Vital signs stable. GENERAL: Shows a pleasant elderly female. She is lying in bed with her foot propped up and looks quite comfortable. LUNGS: Clear to auscultation. HEART: Regular rate and rhythm. ABDOMEN: Soft, nontender, nondistended. EXTREMITIES: Grossly neurovascularly intact except as follows: Examination of the right lower extremity reveals the splint to be clean, dry and intact. There is no sign of drainage. Foot position looks good. Toes are pink. She can flex and extend her toes appropriately. She is neurologically intact. ASSESSMENT: A 74-year-old female postoperative day 1 from right ankle arthrodesis, doing quite well. Pain is controlled. She is neurologically intact. PLAN: 1. DVT prophylaxis including thigh-high TEDs, SCDs, and aspirin twice a day for the next month. 2. PT/OT. She is nonweightbearing on this right leg for the next 6 weeks. 3. Disposition: She is going to be discharged to home with some family support.
[2019-12-10] MEDS ORDERED: MIRABEGRON ER 25 MG TAB PO SCH (09:00)
--- NOTE | 2019-12-14 14:39 | Discharge Summary ---
ADMITTING PHYSICIAN AND SURGEON: Dr. Ivan Jacobs. ADMITTING DIAGNOSIS: Right ankle degenerative joint disease. SURGERY PERFORMED: Right ankle arthrodesis. SECONDARY DIAGNOSES: Diabetes, hypertension, elevated cholesterol, sleep apnea, gastroesophageal reflux disease, obesity, back pain and neck pain. CONSULTS: None obtained. HISTORY AND PHYSICAL EXAMINATION: Well documented in the patient's chart. HOSPITAL COURSE: The patient was admitted on 12/08/2019, underwent ankle arthrodesis as above. He tolerated the procedure well. There were no complications. She was transferred to the PACU postoperatively and later to the orthopedic floor for further care. She was given Ancef for antibiotic prophylaxis, SANDHYA stockings, SCDs and aspirin for DVT prophylaxis. Vital signs were monitored during her hospital stay and remained stable. She did not require any blood transfusions. There were no complications. By postoperative day 1, she was tolerating a diabetic diet. Pain was controlled with oral pain medicine. On postop day 1, she was discharged home. She was given printed discharge instructions as well as new prescriptions for extra strength Tylenol, aspirin and Dilaudid. Continue her home medications, continue physical therapy, nonweightbearing to the right lower extremity. Continue to elevate her right lower extremity as much as possible, keep the pressure off her heel and keep her splint and dressings clean and dry. Follow up approximately 2 weeks postoperatively or sooner if there are any problems or concerns.
== END 2019-12-09 14:41 | disposition home or self-care (01) | DRG 494 ==
LOC: ASU 09:54 → 3E 16:35

== ENCOUNTER 2021-10-23 06:33 | Inpatient (IN) ==
--- NOTE | 2021-09-06 12:51 | PAT Medication Instructions ---
Medication Instructions Date of Service September 06, 2021 Home Medications Medication Instructions Recorded hydromorphone 2 mg tablet 2 mg PO Q4H PRN #40 tab 12/24/19 ciprofloxacin HCl 500 mg tablet 500 mg PO BID 6 Days #12 tab 03/01/21 methylprednisolone 4 mg tablets in 4 mg PO USEASDIRECTD #21 tab 07/27/21 a dose pack (Medrol ([place])) aspirin 81 mg tablet,delayed release (Aspirin Low Dose) 81 mg PO HS atorvastatin 10 mg tablet 10 mg PO QPM diphenhydramine HCl 25 mg tablet 25 mg PO DAILY PRN dulaglutide 0.75 mg/0.5 mL subcutaneous pen injector (Trulicity) 0.75 mg SUBCUT Q12D gabapentin 100 mg capsule 300 mg PO BID lansoprazole 15 mg capsule,delayed release 15 mg PO QAM lisinopril 10 mg tablet 10 mg PO QAM magnesium oxide 500 mg tablet 500 mg PO BID metformin 500 mg tablet 500 mg PO QPM Dry Eye Formula 1 cap PO TID valacyclovir 500 mg tablet (Valtrex) 500 mg PO QAM vit C 250 mg-vit E 90 mg-zinc 40 mg-copper 1 [id number]-fgkuos capsule (PreserVision AREDS-2) 1 tab PO QAM vitamin B complex 1 tab PO QAM hydromorphone 2 mg tablet 2 mg PO Q4H PRN ciprofloxacin HCl 500 mg tablet 500 mg PO BID methylprednisolone 4 mg tablets in a dose pack (Medrol ([place])) 4 mg PO USEASDIRECTD Medical Marijuana 1 dose PO HS PRN cholecalciferol (vitamin D3) 25 mcg (1,000 unit) chewable tablet (Vitamin D3) 25 mcg PO QAM gabapentin 300 mg capsule 600 mg PO HS melatonin 10 mg capsule 10 mg PO HS metoclopramide HCl 5 mg tablet (Reglan) 5 mg PO QAM polyethylene glycol 3350 17 gram oral powder packet (Miralax) 17 g PO 2XWK zinc 50 mg tablet 50 mg PO QAM Continue as directed ciprofloxacin HCl 500 mg tablet 500 mg PO BID (prior to Botox treatments) dulaglutide 0.75 mg/0.5 mL subcutaneous pen injector (Trulicity) 0.75 mg SUBCUT Q12D methylprednisolone 4 mg tablets in a dose pack (Medrol ([place])) 4 mg PO USEASDIRECTD ASK your prescriber and surgeon aspirin 81 mg tablet,delayed release (Aspirin Low Dose) 81 mg PO HS STOP taking 2 weeks before surgery (or as soon as possible if surgery is within 2 weeks) PreserVision AREDS-2 1 tab PO QAM Dry Eye Formula 1 cap PO TID DO NOT take the morning of surgery diphenhydramine HCl 25 mg tablet 25 mg PO DAILY PRN lisinopril 10 mg tablet 10 mg PO QAM magnesium oxide 500 mg tablet 500 mg PO BID vitamin B complex 1 tab PO QAM cholecalciferol (vitamin D3) 25 mcg (1,000 unit) chewable tablet (Vitamin D3) 25 mcg PO QAM polyethylene glycol 3350 17 gram oral powder packet (Miralax) 17 g PO 2XWK zinc 50 mg tablet 50 mg PO QAM metoclopramide HCl 5 mg tablet (Reglan) 5 mg PO QAM Take morning of surgery With a small sip of water, OTHERWISE NOTHING TO EAT OR DRINK AFTER MIDNIGHT: gabapentin 100 mg capsule 300 mg PO BID lansoprazole 15 mg capsule,delayed release 15 mg PO QAM valacyclovir 500 mg tablet (Valtrex) 500 mg PO QAM hydromorphone 2 mg tablet 2 mg PO Q4H PRN (okay to take up to 4 hours prior to surgery if needed) Take evening before surgery atorvastatin 10 mg tablet 10 mg PO QPM diphenhydramine HCl 25 mg tablet 25 mg PO DAILY PRN (if needed) gabapentin 100 mg capsule 300 mg PO BID magnesium oxide 500 mg tablet 500 mg PO BID metformin 500 mg tablet 500 mg PO QPM hydromorphone 2 mg tablet 2 mg PO Q4H PRN (if needed) Medical Marijuana 1 dose PO HS PRN (if needed) gabapentin 300 mg capsule 600 mg PO HS melatonin 10 mg capsule 10 mg PO HS Other Notes If you have any questions please call us at [phone] or [phone] or [phone] or [phone]
--- NOTE | 2021-09-08 09:37 | Anesthesiology Consultation ---
Date of Service September 08, 2021 Assessment & Plan (1) Encounter for pre-operative examination: - COVID screening: Per assessment on 09/08: Travel screen- Returned from travel to [place] 08/31 (had appt at [facility], stayed with son, wore mask in public). Patient vaccinated. Preop COVID testing > 2 weeks after return from travel. No known COVID-19 positive contacts or current COVID-19 related symptoms. Surgeon arranging preop COVID testing. Awaiting results. - S/P Right ankle fusion (12/08/19): Grade view 2, MAC#3, ETT 7.5 at [facility] - Check BSG AM DOS Chart Review Chart Review: Acceptable Risk for Surgery (pending cardiology office visit note) and Patient seen in Pre Admission Testing Teaching & Discussion Pre-Anesthesia Teaching/Discussion Notes: Instructed NPO after midnight before surgery,except medications with 15 cc of water. Medication instructions provided according to the PAT guidelines. History Surgery Operation Date: 09/26/21 07:45 Proposed Procedures p L3-S1 Decompression Fusion Spinal Cord Monitoring - Shade Chapman DO Height/Weight Height: 5 ft 1 in Weight: 83 kg Allergies Allergy/AdvReac Type Severity Reaction Status Date / Time nickel Allergy Intermediate Rash/bleedi Verified 09/06/21 11:15 ng No Known Drug Allergies Allergy Verified 09/06/21 11:13 Medications Home Medications Medication Instructions Recorded Confirmed Last Taken aspirin 81 mg tablet,delayed 81 mg PO HS 11/09/19 09/06/21 12/07/19 21:00 release (Aspirin Low Dose) atorvastatin 10 mg tablet 10 mg PO QPM 11/09/19 09/06/21 12/07/19 21:00 diphenhydramine HCl 25 mg tablet 25 mg PO DAILY PRN 11/09/19 09/06/21 Unknown dulaglutide 0.75 mg/0.5 mL 0.75 mg SUBCUT Q12D 11/09/19 09/06/21 12/06/19 09:00 subcutaneous pen injector ([facility]) gabapentin 100 mg capsule 300 mg PO BID 11/09/19 09/06/21 12/07/19 21:00 lansoprazole 15 mg capsule,delayed 15 mg PO QAM 11/09/19 09/06/21 12/07/19 09:00 release lisinopril 10 mg tablet 10 mg PO QAM 12/16/19 10/13/21 01/13/20 09:00 magnesium oxide 500 mg tablet 500 mg PO BID 11/09/19 09/06/21 12/07/19 21:00 metformin 500 mg tablet 500 mg PO QPM 11/09/19 09/06/21 12/05/19 21:00 [id number]-dha 133 mg-epa 1 cap PO TID 11/09/19 09/06/21 12/01/19 09:00 167 tb-zhiu-ehdd-lactoferrin capsule (Dry Eye Formula) valacyclovir 500 mg tablet 500 mg PO QAM 11/09/19 09/06/21 12/07/19 09:00 (Valtrex) vit C 250 mg-vit E 90 mg-zinc 40 1 tab PO QAM 11/09/19 09/06/21 12/07/19 21:00 mg-copper 1 rw-iztyhc-lpxifl capsule (PreserVision AREDS-2) vitamin B complex 1 tab PO QAM 11/09/19 09/06/21 12/07/19 09:00 hydromorphone 2 mg tablet 2 mg PO Q4H PRN #40 tab 12/24/19 09/06/21 Unknown ciprofloxacin HCl 500 mg tablet 500 mg PO BID 6 Days #12 tab 03/01/21 09/06/21 Unknown methylprednisolone 4 mg tablets in 4 mg PO USEASDIRECTD #21 tab 07/27/21 09/06/21 Unknown a dose pack (Medrol ([place]oor)) Medical Marijuana 1 dose PO HS PRN 09/06/21 09/06/21 Unknown cholecalciferol (vitamin D3) 25 25 mcg PO QAM 09/06/21 09/06/21 Unknown mcg (1,000 unit) chewable tablet (Vitamin D3) gabapentin 300 mg capsule 600 mg PO HS 09/06/21 09/06/21 Unknown melatonin 10 mg capsule 10 mg PO HS 09/06/21 09/06/21 Unknown metoclopramide HCl 5 mg tablet 5 mg PO QAM 09/06/21 09/06/21 Unknown (Reglan) polyethylene glycol 3350 17 gram 17 g PO 2XWK 09/06/21 09/06/21 Unknown oral powder packet (Miralax) zinc 50 mg tablet 50 mg PO QAM 09/06/21 09/06/21 Unknown Past Medical History Medical History Anxiety controlled without meds Arthritis of foot Depression controlled without meds Diabetes mellitus, type 2 NIDDM GERD (gastroesophageal reflux disease) controlled Hyperlipidemia Hypertension Left carpal tunnel syndrome Migraine hx Neuropathy of foot Pancreatitis ~2014 RLS (restless legs syndrome) Schatzki's ring Sleep apnea CPAP (compliant) Syncope Three episodes in 2014. Cardiac workup included echo, event monitor and tilt- table test, all negative. Determined to be "swallow syncope," as episodes were preceded by patient ingesting hot liquid. Follows with [facility] ([facility] in [place], Dr. Cristiano Greenfield). 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 No episodes since 2015. S/P right ankle fusion at [facility] 11/2019 under [place] without issue* Exercise / Class Metabolic Activity II 4-5 Yardwork/Stairs/Walk up hill (one FS (no CP, no SOB)) Past Family History Family History Unknown Heart disease Lymphoma Father Hypertension Other No family history of adverse response to anesthesia Past Surgical History Surgical History H/O breast biopsy L breast, metal marker remains H/O release of tendon right wrist H/O tubal ligation History of adenoidectomy History of anesthesia reaction post-op "brain fog" for several weeks History of ankle surgery Right ankle fusion (12/08/19): Grade view 2, MAC#3, ETT 7.5 at [facility] History of cardiac cath 2008 @ [facility] > no stents History of carpal tunnel release Right History of colonoscopy History of endoscopic sinus surgery History of esophageal dilatation History of esophagogastroduodenoscopy (EGD) History of open reduction and internal fixation (ORIF) procedure right wrist History of tooth extraction with implants Hx of cataract extraction R/L Hx of tonsillectomy S/P Botox injection Bladder (for urinary incontinence) Past Anesthesia History No Family Hx of Anesthesia Complications and Other (post-op "brain fog" for several weeks) History of PONV No Hx of PONV and No Hx of Motion Sickness Social History Smoking Status: Never smoker Do You Dip or Chew Tobacco: No Hx Alcohol Use: Yes Alcohol type: beer, wine and hard liquor alcohol intake frequency: a few times a week Hx Substance Use: Yes substance use type: marijuana (Medical (+ card), tincture HS PRN sleep/pain) Review of Systems Patient denies chest pain, shortness of breath, dyspnea on exertion, fever, chills, cough, wheezing, palpitations. Physical Exam Vital Signs VITALS BP 126/77 P 67 TEMP 98.0 SP02 97%RA RESP 18 PHYSICAL (physical exam performed by Laisha Shelton, PAC) Full cervical extension range of motion. Full TMJ range of motion. TMD 3 finger breaths Mallampati Score 2 Dentition: intact, several implants/crowns (sides/molars) Lungs: clear throughout to auscultation Cardiac: regular rate and rhythm, no murmurs noted Spine: normal Carotid arteries: negative bruit Extremities: no edema Lab Results Anesthesia Preop Results Results Anesthesia Widget: WBC 6.68 K/uL (4.8-10.8) 09/08/21 Hgb 13.5 g/dL (12.0-16.0) 09/08/21 Hct 39.2 % (37-47) 09/08/21 Plt 164 K/uL (130-400) 09/08/21 Na 139 mmol/L (136-145) 09/08/21 K 4.6 mmol/L (3.5-5.1) 09/08/21 Cl 106 mmol/L (98-107) 09/08/21 CO2 28 mmol/L (21-32) 09/08/21 BUN 13 mg/dl (7-18) 09/08/21 Creat 0.77 mg/dl (0.6-1.2) 09/08/21 Glucose Level 97 mg/dl (70-99) 09/08/21 PT 10.4 Seconds (9.0-12.0) 09/08/21 PTT 25.5 Seconds (21.0-31.0) 09/08/21 INR 1.0 (0.9-1.1) 09/08/21 Urine Color Yellow 09/08/21 Urine Appearance Clear (Clear) 09/08/21 Urine pH 8.0 (4.5-7.5) H 09/08/21 Urine Specific [place] 1.008 (1.000-1.030) 09/08/21 Urine Protein Negative (Negative) 09/08/21 Urine Glucose (UA) Negative (Negative) 09/08/21 Urine Ketones Negative (Negative) 09/08/21 Urine Blood Trace (Negative) H 09/08/21 Urine Nitrite Negative (Negative) 09/08/21 Urine Bilirubin Negative (Negative) 09/08/21 Urine Urobilinogen Negative (Negative) 09/08/21 Urine Leukocyte Esterase Trace (Negative) H 09/08/21 Urine WBC (Auto) 1-5 /hpf (0-5) 09/08/21 Urine RBC (Auto) 0-4 /hpf (0-4) 09/08/21 Urine Hyaline Casts (Auto) 0 /lpf (0-5) 09/08/21 Urine Epithelial Cells (Auto) 5-10 /lpf (0-5) H 09/08/21 Urine Bacteria (Auto) Negative (Negative) 09/08/21 Blood Type O Positive 09/08/21 Antibody Screen NEGATIVE 09/08/21 Testing Laboratory Results 03/30/21 HGBA1C 5.3% Electrocardiogram Date: 09/08/21 NSR at 62bpm. No significant change compared to 12/22/2015 per assistant quality manager review. Chest X-Ray Date: 09/08/21 FINDINGS: Cardiac silhouette is mildly enlarged. Mild chronic interstitial coarsening. Mild hyperinflation with diaphragmatic flattening. No pneumothorax, pleural effusion, airspace consolidation or overt pulmonary edema. A surgical clip projects over the breast tissue. Degenerative changes of the shoulders and spine. IMPRESSION: No acute process.
[~2021-10-23 06:33] MED LIST changes: -CEFAZOLIN 2000MG 2,000 MG/15 ML SYR IV SCH; +CeleBREX 200 MG CAP PO SCH; +GABAPENTIN 300 MG CAP PO SCH; -LR 60ML/HR IV SCH; -ROPIVACAINE 0.5% 5 MG/ML 30 ML VIAL ONE; +ceFAZolin 2000MG 2,000 MG/15 ML SYR IV SCH
[2021-10-23] MEDS ORDERED: BUPIVACAINE 0.5 % 5 MG/1 ML MPF 30ML VIAL ONE (07:08)
[2021-10-23] MEDS ORDERED: EPINEPHrine INJ 1 MG/ML AMP ONE (07:08)
[2021-10-23] MEDS ORDERED: ROCURONIUM BROMIDE 10 MG/ML 5 ML VIAL IV ONE ×4 (07:09→08:42)
[2021-10-23] MEDS ORDERED: PROPOFOL IV EMULSION 10 MG/ML 20 ML VIAL IV ONE (07:09)
[2021-10-23] MEDS ORDERED: fentaNYL citrate 100 MCG/2 ML VIAL ONE (07:09)
[2021-10-23] MEDS ORDERED: ONDANSETRON INJ 2 MG/ML 2 ML VIAL ONE (07:09)
[2021-10-23] MEDS ORDERED: LIDOCAINE 2% 20 MG/ML 5 ML SYR IV ONE (07:09)
[2021-10-23] MEDS ORDERED: DEXAMETHASONE SOD INJ 4 MG/ML VIAL ONE (07:09)
[2021-10-23] MEDS ORDERED: LIDOCAINE 2% 2 ML VIAL/AMP(20MG/ML) INFIL ONE (07:10)
[2021-10-23] MEDS ORDERED: ONDANSETRON INJ 2 MG/ML 2 ML VIAL IV PRN ×2 (07:15→14:09)
[2021-10-23] MEDS ORDERED: LABETALOL HCL IV 5 MG/ML 20ML IV PRN (07:15)
[2021-10-23] MEDS ORDERED: MEPERIDINE HCL 25 MG/ML CARP/VIAL IV PRN (07:15)
[2021-10-23] MEDS ORDERED: ePHEDrine sulfate 50 MG/ML AMP IV PRN (07:15)
[2021-10-23] MEDS ORDERED: ATROPINE SULFATE 0.1 MG/ML 10ML SYR IV PRN (07:15)
[2021-10-23] MEDS ORDERED: HYDROmorphone INJ 1 MG/ML SYRINGE IV PRN ×2 (07:15→14:09)
[2021-10-23] MEDS ORDERED: PHENYLEPHRINE 100MCG/ML 5ML SYR IV PRN (07:15)
--- NOTE | 2021-10-23 07:31 | History & Physical Report ---
Date of Service October 23, 2021 Assessment & Plan (1) Neurogenic claudication due to lumbar spinal stenosis: Plan: Lumbar decompression fusion L3-S1 History of Present Illness Chief Complaint: Back and bilateral leg pain Primary Care Provider: Rebecca Arroyo PA-C This is a 76-year-old male presents with chronic persistent back and bilateral leg pain. Failing course of nonoperative care she for surgical invention. Allergies Allergy/AdvReac Type Severity Reaction Status Date / Time nickel Allergy Intermediate Rash/bleedi Verified 10/23/21 06:19 ng No Known Drug Allergies Allergy Verified 10/23/21 06:19 Home Medications Medication Instructions Recorded Confirmed Type aspirin 81 mg tablet,delayed 81 mg PO HS 11/09/19 10/23/21 History release (Aspirin Low Dose) atorvastatin 10 mg tablet 10 mg PO QPM 11/09/19 10/23/21 History diphenhydramine HCl 25 mg tablet 25 mg PO DAILY PRN 11/09/19 10/23/21 History dulaglutide 0.75 mg/0.5 mL 0.75 mg SUBCUT Q12D 11/09/19 10/23/21 History subcutaneous pen injector (Trulicity) gabapentin 100 mg capsule 300 mg PO BID 11/09/19 10/23/21 History lansoprazole 15 mg capsule,delayed 15 mg PO QAM 11/09/19 10/23/21 History release lisinopril 10 mg tablet 10 mg PO QAM 11/09/19 10/23/21 History magnesium oxide 500 mg tablet 500 mg PO BID 11/09/19 10/23/21 History metformin 500 mg tablet 500 mg PO QPM 11/09/19 10/23/21 History fdqhmrwx-tmx-gf4-dha 133 mg-epa 1 cap PO TID 11/09/19 10/23/21 History 167 gg-yggc-beeo-lactoferrin capsule (Dry Eye Formula) valacyclovir 500 mg tablet 500 mg PO QAM 11/09/19 10/23/21 History (Valtrex) vit C 250 mg-vit E 90 mg-zinc 40 1 tab PO QAM 11/09/19 10/23/21 History mg-copper 1 qa-zbbaba-oihxyj capsule (PreserVision AREDS-2) vitamin B complex 1 tab PO QAM 11/09/19 10/23/21 History hydromorphone 2 mg tablet 2 mg PO Q4H PRN #40 tab 12/24/19 10/23/21 Rx ciprofloxacin HCl 500 mg tablet 500 mg PO BID 6 Days #12 tab 03/01/21 10/23/21 Rx methylprednisolone 4 mg tablets in 4 mg PO USEASDIRECTD #21 tab 07/27/21 10/23/21 Rx a dose pack (Medrol ([place])) Medical Marijuana 1 dose PO HS PRN 09/06/21 10/23/21 History cholecalciferol (vitamin D3) 25 25 mcg PO QAM 09/06/21 10/23/21 History mcg (1,000 unit) chewable tablet (Vitamin D3) gabapentin 300 mg capsule 600 mg PO HS 09/06/21 10/23/21 History melatonin 10 mg capsule 10 mg PO HS 09/06/21 10/23/21 History metoclopramide HCl 5 mg tablet 5 mg PO QAM 09/06/21 10/23/21 History (Reglan) polyethylene glycol 3350 17 gram 17 g PO 2XWK 09/06/21 10/23/21 History oral powder packet (Miralax) zinc 50 mg tablet 50 mg PO QAM 09/06/21 10/23/21 History Past Med/Surg History Medical History (Updated 10/23/21 @ 07:31 by Shade Chapman DO) Anxiety controlled without meds Arthritis of foot Depression controlled without meds Diabetes mellitus, type 2 NIDDM GERD (gastroesophageal reflux disease) controlled Hyperlipidemia Hypertension Left carpal tunnel syndrome Migraine hx Neuropathy of foot Obesity Pancreatitis ~2014 RLS (restless legs syndrome) Schatzki's ring Sleep apnea CPAP (compliant) Syncope Three episodes in 2014. Cardiac workup included echo, event monitor and tilt- table test, all negative. Determined to be "swallow syncope," as episodes were preceded by patient ingesting hot liquid. Follows with [facility] ([facility] in [place], Dr. Cristiano Greenfield). 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 No episodes since 2015. S/P right ankle fusion at [facility] 11/2019 under [place] without issue* Surgical History H/O breast biopsy L breast, metal marker remains H/O release of tendon right wrist H/O tubal ligation History of adenoidectomy History of anesthesia reaction post-op "brain fog" for several weeks History of ankle surgery Right ankle fusion (12/08/19): Grade view 2, MAC#3, ETT 7.5 at [facility] History of cardiac cath 2008 @ [facility] > no stents History of carpal tunnel release Right History of colonoscopy History of endoscopic sinus surgery History of esophageal dilatation History of esophagogastroduodenoscopy (EGD) History of open reduction and internal fixation (ORIF) procedure right wrist History of tooth extraction with implants Hx of cataract extraction R/L Hx of tonsillectomy S/P Botox injection Bladder (for urinary incontinence) Family History Unknown Heart disease Lymphoma Father Hypertension Other No family history of adverse response to anesthesia Social History Smoking Status: Never smoker Second Hand Exposure: No; Do You Dip or Chew Tobacco: No; Tobacco Cessation Education Requested by Patient: No Hx Alcohol Use: Yes Alcohol type: beer, wine and hard liquor Hx Substance Use: No Preferred Language: Paraguayan Communication Ability: Effective Visual Impairment: No Limitations Engine Assembler Required: No Beliefs That Will Affect Care: None Current Living Situation: Alone Other Information That Helps Us Care for You: No Feels Safe at Home: Yes Safety Concerns: Feels Safe At This Time Assistive Devices: CPAP and Walker Physical Exam Physical Exam: Patient is alert and oriented Heart regular rhythm Lungs clear Results & Data ([facility]) Vital Signs (Past 12 Hours) Vital Signs Temp Pulse Resp BP Pulse Ox 10/23/21 06:51 36.7 C 76 18 139/88 100
--- NOTE | 2021-10-23 07:32 | History & Physical Bridge Note ---
Date of Service October 23, 2021 History & Physical Bridge Note I have examined the patient, reviewed the History & Physical and in the interval since the performance of the History & Physical I have noted the following changes of clinical significance: no changes noted
[2021-10-23] MEDS ORDERED: PHENYLEPHRINE 100MCG/ML 5ML SYR ONE (07:53)
[2021-10-23] MEDS ORDERED: HYDROmorphone INJ 2 MG/ML SYR/VIAL ONE (08:14)
[2021-10-23] MEDS ORDERED: NEOSTIGMINE METHYLSULFATE 1 MG/ML 10ML VIAL ONE (10:16)
[2021-10-23] MEDS ORDERED: GLYCOPYRROLATE 0.2 MG/ML VIAL ONE (10:16)
[2021-10-23] MEDS ORDERED: FLOSEAL HEMOSTATIC MATRIX 10ML TOP ONE (10:22)
--- NOTE | 2021-10-23 10:26 | Operative Report ---
Post Operative Report Pre & Post Diagnosis Operation Date: 09/26/21 07:45 <No data on this case meets the specified criteria> Operation Date: 10/23/21 07:45 Pre-Op Diagnosis: Spinal Stenosis, Lumbar Region with Neurogenic Claudication Spondylolisthesis L3-L4 L4-5 L5-S1 Post-Op Diagnosis: Same I identified the patient and participated in the time-out.: Yes Procedure Operation Date: 09/26/21 07:45 <No data on this case meets the specified criteria> Operation Date: 10/23/21 07:45 Actual Procedures #1 lumbar decompression with bilateral medial facetectomies and foraminotomies L2-3, L3-4, L4-5 and L5-S1. #2 posterior spinal fusion L3-S1. #3 placement of posterior segmental instrumentation L3-S1. #4 interbody fusion L4-L5. #5 placement of peek cage 11 x 22 mm at L4-5. #6 placement locally harvested morselized autograft in the posterior gutters. #7 placement infuse collagen sponge, and master graft in the posterior lateral gutters and I factor in the interbody space. Surgeon Shade Chapman, DO Scout Velvet Mabry Estimated Blood Loss 750 Findings See Below Patient is 5 foot 1 inches tall weighing over 83 kg with a BMI in excess of 34. The patient's body habitus combined with an EBL of greater than 750 cc created significant technical difficulty adding at least 50% increase to the operative time. Specimens None Indications This is a 76-year-old female who presents with significant neurogenic claudication is here for the above-mentioned procedure. Description of Procedure Patient was met with identified informed consent obtained. Patient was then taken to the operative suite underwent ablation placed in prone position the Kevin table atop the Gunnar frame. All bony prominences well-padded eyes inspected to ensure no external pressure placed upon them. This point lumbar spine was prepped and draped no sterile fashion. Sharp dissection with the assistance of Bovie cautery was performed down to and exposing the lamina and transverse processes of L3-L4-L5 and sacral ala bilaterally. From a caudal cephalad fashion complete laminectomy of L5 L4 L3 and partial laminectomy of L2 was performed including bilateral medial facetectomies and foraminotomies addressing severe spinal stenosis. Pedicle screws were then placed in L3-L4-L5 and S1 levels bilaterally with assistance of fluoroscopy and the properly sized hi placed. By way of a transforaminal approach on the right a complete discectomy of L4-L5 was performed endplates curetted to subcortical bleeding bone and a 11 x 22 mm peek cage filled with I factor tapped in position. The rods were then locked in final position bilaterally. The transverse processes of L3-L4-L5 and sacral ala burred to subcortical bleeding bone. Infuse collagen sponge master graft and local autograft was placed in the posterior gutters. 15 round MARIXA drain inserted. The incision was then closed with 1 Vicryl to fascia 2-0 Vicryl subcutaneously and 4 Monocryl for final skin closure. Steri-Strip sterile dressings placed. Patient waken taken to PACU stable condition. Please note spinal cord monitoring visualized at the procedure no changes noted. Lastly Velvet Mabry was present at the entire procedure and while the patient positioning complex portions of the surgery and fascial closure. I attest to the content of the Intraoperative Record and any orders documented therein. Any exceptions are noted below.
--- NOTE | 2021-10-23 10:38 | Fluoroscopy Report ---
FL lumbar spine 2-3V CLINICAL HISTORY: L3-S1 DECOMPRESSION AND FUSION WITH INTERBODY COMPARISON STUDY: None. FLUOROSCOPY TIME: 32 seconds. FINDINGS: 3 fluoroscopic spot images of the lumbar spine demonstrate posterior decompression fusion f rom L3 through S1 with pedicle screws and rods. The hardware appears intact. IMPRESSION: Fluoroscopic assistance provided for L3-S1 posterior decompression and fusion ACT 112: Negative or not required by law. Electronically signed by: Monty Wilkinson M.D. 10/23/2021 10:36 AM
[2021-10-23] MEDS: fentaNYL citrate 100 MCG/2 ML VIAL IV PRN ×4 (11:14→12:50)
--- NOTE | 2021-10-23 11:35 | Anesthesiology Progress Note ---
Date of Service October 23, 2021 Anesthesia Post Procedure Vital Signs Vital Signs: Temp Pulse Pulse Resp BP BP Pulse Ox 10/23/21 11:25 53 L 12 155/73 H 100 10/23/21 11:15 60 12 153/78 H 100 10/23/21 11:05 60 12 149/78 H 100 10/23/21 10:55 58 L 13 149/78 H 100 10/23/21 10:49 36.1 C L 64 14 155/79 H 100 10/23/21 06:51 36.7 C 76 18 139/88 100 Pain Intensity Lower Back: Pain Intensity: 3 Transfer of Care Handoff Completed per policy Notes Mental Status: alert / awake / arousable Patient Amnestic to Procedure: Yes Nausea / Vomiting: adequately controlled Pain: adequately controlled and improving with treatment Airway Patency, RR, SpO2: stable & adequate BP & HR: stable & adequate Hydration State: stable & adequate Anesthetic Complications: no major complications apparent and Pt Satisfied with anesthetic care Notes: The patient is awake and stable.
[2021-10-23] MEDS ORDERED: SOD PHOSPHATE/SOD BIPHOSPHATE ENEMA 132 ML BTL PR PRN (14:09)
[2021-10-23] MEDS ORDERED: HYDROmorphone INJ 0.5 MG/0.5 ML SYR IV PRN (14:09)
[2021-10-23] MEDS ORDERED: ACETAMINOPHEN 500 MG TAB PO PRN (14:09)
[2021-10-23] MEDS ORDERED: LORazepam 0.5 MG/1 ML VIAL IV PRN (14:09)
[2021-10-23] MEDS ORDERED: NALOXONE HCL 0.4 MG/1 ML VIAL/CARP IV PRN (14:09)
[2021-10-23] MEDS ORDERED: FAMOTIDINE 20 MG TAB PO PRN (14:09)
[2021-10-23] MEDS ORDERED: SODIUM CHLORIDE 0.9% 1000ML 1,000 ML IV SCH (14:09)
[2021-10-23] MEDS ORDERED: DO NOT ADMINISTER PNEUMOCOCCAL VACCINE PRN (14:09)
[2021-10-23] MEDS ORDERED: hydrOXYzine HCl 25 MG TAB PO PRN (14:09)
[2021-10-23] MEDS ORDERED: bisacodyL 10 MG SUPP PR PRN (14:09)
[2021-10-23] MEDS ORDERED: PHARMACY GLYCEMIC MGMT CONSULT PRN (14:09)
[2021-10-23] MEDS ORDERED: MAGNESIUM HYDROXIDE SUSP 30 ML UDC PO PRN (14:09)
[2021-10-23] MEDS ORDERED: NON-FORMULARY MEDICATION (Diphenhydramine Hcl 25 mg Tablet) PO PRN (14:09)
[2021-10-23] MEDS ORDERED: PROMETHAZINE HCL 12.5 MG in SODIUM CHLORIDE 0.9% 50 ML IV PRN (14:09)
[2021-10-23] MEDS ORDERED: ONDANSETRON 4 MG OD TAB PO PRN (14:09)
[2021-10-23] MEDS ORDERED: METOCLOPRAMIDE HCL INJ 5 MG/ML 2 ML VIAL IV PRN (14:09)
[2021-10-23] MEDS ORDERED: traMADol HCL 50 MG TABLET PO PRN (14:09)
[2021-10-23] MEDS ORDERED: DO NOT ADMINISTER FLU VACCINE PRN (14:09)
[2021-10-23] MEDS ORDERED: ACETAMINOPHEN 1,000 MG/100 ML VIAL IV PRN (14:09)
[2021-10-23] MEDS ORDERED: diphenhydrAMINE Capsule 25 MG CAP PO PRN (14:09)
[2021-10-23] MEDS ORDERED: INSULIN GLARGINE SOLOSTAR 100 UNITS/ML 3 ML PEN SC ONE ×3 (14:45→21:00)
--- NOTE | 2021-10-23 15:15 | Pharmacy Report ---
Pharmacy Glycemic Short Note 2 - Date of Service October 23, 2021 - Glycemic Short BSG Results (Last 24 hours): 10/23/21 10/23/21 06:57 10:52 POC Glucose 107 H 148 H OUTPATIENT ANTIDIABETIC REGIMEN: * Metformin 500 mg QPM, Trulicity (last received 10/20) * A1c pending ASSESSMENT: * Admitted following spinal surgery, received 10 mg of dexamethasone IV * Anticipate steroid to cause hyperglycemia, will start novolog as weight based stress of 3, will give lantus 20 units x 1 now, and set scale up to weight based stress of 3 this evening. Overnight checks. PLAN FOR INPATIENT GLYCEMIC CONTROL: * Hold outpatient oral diabetes medications * Basal insulin * Lantus 20 units SQ x1, HS scale 0/8/15/20 * Bolus insulin * NovoLog per scale ACHS or Q6hrs while NPO * Goal Range: Low 110 mg/dL - High 140 mg/dL * Correction Factor: 20 mg/dL/unit * Nutritional / Prandial insulin per carb ratio of 1 unit per 6 grams CHO consumed
[2021-10-23] MEDS ORDERED: MEDICAL MARIJUANA PO PRN (15:29)
[2021-10-23] MEDS: oxyCODONE HCL IR 5 MG TAB (IMMEDIATE RELEASE) PO PRN ×2 (15:32→23:00)
[2021-10-23] MEDS: INSULIN ASPART 100 UNITS/ML 3 ML PEN SC SCH ×3 (16:29→21:28)
[2021-10-23] MEDS: ceFAZolin 2000MG 2,000 MG/15 ML SYR IV SCH (18:12)
[2021-10-23] MEDS: ASPIRIN 81 MG ECTAB PO SCH (21:16)
[2021-10-23] MEDS: ATORVASTATIN 10 MG TAB PO SCH (21:17)
[2021-10-23] MEDS: DOCUSATE SODIUM/SENNA 50/8.6MG TAB PO SCH (21:17)
[2021-10-23] MEDS: GABAPENTIN 300 MG CAP PO SCH (21:18)
[2021-10-23] MEDS: MAGNESIUM OXIDE 400 MG TAB PO SCH (21:19)
[2021-10-23] MEDS: MELATONIN 3 MG TAB PO SCH (21:25)
[2021-10-24] MEDS: ceFAZolin 2000MG 2,000 MG/15 ML SYR IV SCH (00:41)
[2021-10-24] MEDS: INSULIN ASPART 100 UNITS/ML 3 ML PEN SC SCH ×6 (00:44→21:15)
[2021-10-24 07:49] LABS: Hematocrit (blood only) 28.4 % (37-47); Hemoglobin 9.7 g/dL (12.0-16.0); Immature Granulocytes # (auto) 0.01 K/uL (0.00-0.02); Immature Granulocytes % (auto) 0.1 %; Lymphocytes # (auto) 2.04 K/uL (1.2-3.4); Lymphocytes % (auto) 19.5 %; Mean Corpuscular Hemoglobin 32.3 pg (25-34); Mean Corpuscular Hgb Conc 34.2 g/dL (32-36); Mean Corpuscular Volume 94.7 fL (80-100); Monocytes # (auto) 1.37 K/uL (0.11-0.59); Monocytes % (auto) 13.1 %; Neutrophils # (auto) 7.03 K/uL (1.4-6.5); Neutrophils % (auto) 67.3 %; Platelet Count 156 K/uL (130-400); RDW Coefficient of Variation 12.4 % (11.5-14.5); RDW Standard Deviation 42.4 fL (36.4-46.3); White Blood Count 10.45 K/uL (4.8-10.8)
[2021-10-24] MEDS: oxyCODONE HCL IR 5 MG TAB (IMMEDIATE RELEASE) PO PRN ×3 (07:53→21:41)
[2021-10-24] MEDS: POLYETHYLENE (MIRALAX) 17 GM PACK PO SCH ×3 (07:58→17:46)
[2021-10-24 08:25] LABS: BUN Creatinine Ratio 14.7 (10-20); Calcium 8.5 mg/dl (8.5-10.1); Est GFR (African American) 69.7 ml/min; Est GFR (Non-African American) 60.1 ml/min; Potassium 4.7 mmol/L (3.5-5.1)
[2021-10-24] MEDS: VITAMIN B COMPLEX TAB PO SCH (08:28)
[2021-10-24] MEDS: MULTIVITAMIN TAB PO SCH (08:28)
[2021-10-24] MEDS: MAGNESIUM OXIDE 400 MG TAB PO SCH ×2 (08:28→21:14)
[2021-10-24] MEDS: GABAPENTIN 300 MG CAP PO SCH ×4 (08:28→21:13)
[2021-10-24] MEDS: METOCLOPRAMIDE HCL 5 MG TABLET PO SCH (08:29)
[2021-10-24] MEDS: PANTOprazole 40 MG TAB PO SCH (08:29)
[2021-10-24] MEDS: ZINC SULFATE 220 MG CAPSULE PO SCH (08:29)
[2021-10-24] MEDS: CEROVITE ADV FORMULA TAB PO SCH (08:29)
[2021-10-24] MEDS: CHOLECALCIFEROL 1,000 UNITS 25 MCG TAB PO SCH (08:29)
[2021-10-24] MEDS: lisinopril 10 MG TAB PO SCH (08:29)
--- NOTE | 2021-10-24 08:50 | Orthopedic Progress Note ---
Date of Service October 24, 2021 Assessment & Plan (1) Neurogenic claudication due to lumbar spinal stenosis: Plan: Would like to initiate physical therapy today including occupational therapy. Hopefully she will be adequate to return home the next day or so. She would most likely require home health. Admission and Anticipated Discharge Date Admission Date: October 23, 2021 Subjective Back pain controlled leg pain improved Physical Exam Physical Exam: Patient is in a chair at bedside. Appears comfortable. Is presently resting. Results & Data ([facility]) Vital Signs (Past 12 Hours) Vital Signs Temp Pulse Resp BP Pulse Ox 10/24/21 05:59 37.2 C 65 16 103/51 L 99
[2021-10-24] MEDS ORDERED: INSULIN GLARGINE SOLOSTAR 100 UNITS/ML 3 ML PEN SC SCH (09:00)
[2021-10-24] MEDS: dexAMETHasone 6 MG in SYRINGE 0 ML IV SCH (09:41)
--- NOTE | 2021-10-24 10:55 | Hospitalist Consultation ---
Date of Consultation October 24, 2021 Assessment & Plan (1) Neurogenic claudication due to lumbar spinal stenosis: - POD#1 L3-S1 decompression and fusion by Dr. Chapman - activity and wound care orders as per ortho - pain control with bowel regimen - PT/OT - monitor H/H for acute blood loss anemia and transfuse blood products PRN - EBL 750 cc, drain output 550 cc (2) Acute blood loss as cause of postoperative anemia: -Hgb 9.7 (preop 13.5) -No indication for transfusion at this time, monitor CBC daily (3) Diabetes mellitus: -Hgb A1c 5.6 08/2021 -Hold home agents -glycemic pharmacy consulted by spine Ortho (4) HTN (hypertension): -BP controlled, continue lisinopril (5) Obesity: -BMI 37.1 (6) HALIMA (obstructive sleep apnea): -CPAP as per home settings (7) DVT prophylaxis: -TEDs/SCDs as per spine Ortho Thank you for this consultation. We will follow the patient with you during their hospital stay. You can reach a member of the [facility] Hospitalist Team 17/06 via the [facility] Hospitalist role in [place] Text. Supervising Physician Co-Signing Physician Notes Patient was seen and examined. Agreed with Georgette CAT exam, assessment and mayra n. S/P day #1 L3-S1 decompression and fusion performed by Dr. Chapman. No postop complication. Continue pain control. Continue incentive spirometry. hgb 9.7 today. Continue monitor H/H. PT/OT eval. Continue monitor closely and Fall precaution. MD Katrina History of Present Illness Reason for Consultation: Postop medical management Requesting Physician: Dr. Chapman Attending Physician: Dr. Herndon History of Present Illness 76-year-old female with PMH DM type II, dyslipidemia, HALIMA on CPAP, HTN, GERD, and other problems listed below who is POD#1 L3-S1 decompression and fusion by Dr. Chapman. Postoperatively, the patient is doing well. She is currently sitting up in the chair. Reports pain is controlled with sitting still however does have some increased pain with movement. Reports some mild numbness and tingling to the right foot which was present prior to surgery. Denies unilateral weakness. No chest pain or shortness of breath. Denies lightheadedness and dizziness. No abdominal pain or nausea. Cervantes catheter remains in place. No bowel movement or passing flatus yet. Allergies Allergy/AdvReac Type Severity Reaction Status Date / Time nickel Allergy Intermediate Rash/bleedi Verified 10/23/21 06:19 ng No Known Drug Allergies Allergy Verified 10/23/21 06:19 Home Medications Medication Instructions Recorded Confirmed Type aspirin 81 mg tablet,delayed 81 mg PO HS 11/09/19 10/23/21 History release (Aspirin Low Dose) atorvastatin 10 mg tablet 10 mg PO QPM 11/09/19 10/23/21 History diphenhydramine HCl 25 mg tablet 25 mg PO DAILY PRN 11/09/19 10/23/21 History dulaglutide 0.75 mg/0.5 mL 0.75 mg SUBCUT Q12D 11/09/19 10/23/21 History subcutaneous pen injector (Trulicity) gabapentin 100 mg capsule 300 mg PO BID 11/09/19 10/23/21 History lansoprazole 15 mg capsule,delayed 15 mg PO QAM 11/09/19 10/23/21 History release lisinopril 10 mg tablet 10 mg PO QAM 11/09/19 10/23/21 History magnesium oxide 500 mg tablet 500 mg PO BID 11/09/19 10/23/21 History metformin 500 mg tablet 500 mg PO QPM 11/09/19 10/23/21 History fchoabbo-clb-ed3-dha 133 mg-epa 1 cap PO TID 11/09/19 10/23/21 History 167 fv-ogwm-uyxw-lactoferrin capsule (Dry Eye Formula) valacyclovir 500 mg tablet 500 mg PO QAM 11/09/19 10/23/21 History (Valtrex) vit C 250 mg-vit E 90 mg-zinc 40 1 tab PO QAM 11/09/19 10/23/21 History mg-copper 1 gw-yhdmqc-zuzcxj capsule (PreserVision AREDS-2) vitamin B complex 1 tab PO QAM 11/09/19 10/23/21 History ciprofloxacin HCl 500 mg tablet 500 mg PO BID 6 Days #12 tab 03/01/21 10/23/21 Rx methylprednisolone 4 mg tablets in 4 mg PO USEASDIRECTD #21 tab 07/27/21 10/23/21 Rx a dose pack (Medrol ([place])) Medical Marijuana 1 dose PO HS PRN 09/06/21 10/23/21 History cholecalciferol (vitamin D3) 25 25 mcg PO QAM 09/06/21 10/23/21 History mcg (1,000 unit) chewable tablet (Vitamin D3) gabapentin 300 mg capsule 600 mg PO HS 09/06/21 10/23/21 History melatonin 10 mg capsule 10 mg PO HS 09/06/21 10/23/21 History metoclopramide HCl 5 mg tablet 5 mg PO QAM 09/06/21 10/23/21 History (Reglan) polyethylene glycol 3350 17 gram 17 g PO 2XWK 09/06/21 10/23/21 History oral powder packet (Miralax) zinc 50 mg tablet 50 mg PO QAM 09/06/21 10/23/21 History oxycodone 5 mg tablet 5 mg PO Q6H PRN #30 tab 10/23/21 Rx tramadol 50 mg tablet 50 mg PO Q6H PRN #30 tab 10/23/21 Rx Patient History Medical History Anxiety controlled without meds Arthritis of foot Depression controlled without meds Diabetes mellitus, type 2 NIDDM GERD (gastroesophageal reflux disease) controlled Hyperlipidemia Hypertension Left carpal tunnel syndrome Migraine hx Neuropathy of foot Obesity Pancreatitis ~2014 RLS (restless legs syndrome) Schatzki's ring Sleep apnea CPAP (compliant) Syncope Three episodes in 2014. Cardiac workup included echo, event monitor and tilt- table test, all negative. Determined to be "swallow syncope," as episodes were preceded by patient ingesting hot liquid. Follows with [facility] ([facility] in [place], Dr. Cristiano Greenfield). 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 No episodes since 2015. S/P right ankle fusion at [facility] 11/2019 under [place] without issue* Surgical History H/O breast biopsy L breast, metal marker remains H/O release of tendon right wrist H/O tubal ligation History of adenoidectomy History of anesthesia reaction post-op "brain fog" for several weeks History of ankle surgery Right ankle fusion (12/08/19): Grade view 2, MAC#3, ETT 7.5 at [facility] History of cardiac cath 2008 @ [facility] > no stents History of carpal tunnel release Right History of colonoscopy History of endoscopic sinus surgery History of esophageal dilatation History of esophagogastroduodenoscopy (EGD) History of open reduction and internal fixation (ORIF) procedure right wrist History of tooth extraction with implants Hx of cataract extraction R/L Hx of tonsillectomy S/P Botox injection Bladder (for urinary incontinence) Family History Unknown Heart disease Lymphoma Father Hypertension Other No family history of adverse response to anesthesia Social History Smoking Status: Never smoker Second Hand Exposure: No; Do You Dip or Chew Tobacco: No; Tobacco Cessation Education Requested by Patient: No Hx Alcohol Use: Yes Alcohol type: beer, wine and hard liquor Hx Substance Use: No Preferred Language: Wallisian Communication Ability: Effective Visual Impairment: No Limitations 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 Required: No Beliefs That Will Affect Care: None Current Living Situation: Alone Other Information That Helps Us Care for You: No Feels Safe at Home: Yes Safety Concerns: Feels Safe At This Time Assistive Devices: CPAP and Walker Review of Systems Review of Systems: ROS per HPI, all other systems reviewed and negative Physical Exam Constitutional: WD/WN, vitals as above Eyes: PERRL, conjunctivae normal, anicteric sclerae ENMT: external ear and nose normal, oropharynx normal Respiratory: normal respiratory effort, lungs clear to auscultation Cardiovascular: Rate/Rhythm: regular rate and regular rhythm Vessels: normal peripheral pulses Extremities: no edema Gastrointestinal (Abdomen): normal bowel sounds, soft, nontender, no hepatosplenomegaly Musculoskeletal: no cyanosis or clubbing, extremities motor strength 5/5 S/p back surgery, surgical dressing stained however remains within outlined a dayron, drain in place draining bloody drainage, strength strong and equal BLE Skin: no rashes, warm and dry Neurologic: PERRL, EOMI, accommodation nl, no face palsy, no dysarthria Psychiatric: A+Ox3, euthymic affect Results & Data Results & Data ([facility]) Vital Signs (Past 12 Hours) Vital Signs Temp Pulse Resp BP Pulse Ox 10/24/21 05:59 37.2 C 65 16 103/51 L 99 Laboratory Results Short CBC 10/24/21 Range/Units 06:59 WBC 10.45 (4.8-10.8) K/uL Hgb 9.7 L (12.0-16.0) g/dL Hct 28.4 L (37-47) % Plt Count 156 (130-400) K/uL [facility] 10/24/21 06:59 Sodium 137 Potassium 4.7 Chloride 102 Carbon Dioxide 28 BUN 14 Creatinine 0.93 Glucose 119 H Calcium 8.5
[2021-10-24 13:51] LABS: Estimated Average Glucose 105 mg/dl; Hemoglobin A1C 5.3 % (4.5-5.6)
--- NOTE | 2021-10-24 14:57 | Pharmacy Report ---
Pharmacy Glycemic Short Note 2 - Date of Service October 24, 2021 - Glycemic Short BSG Results (Last 24 hours): 10/23/21 10/23/21 10/24/21 16:33 21:07 00:35 Glucose POC Glucose 155 H 146 H 173 H 10/24/21 10/24/21 10/24/21 04:15 06:59 07:39 Glucose 119 H POC Glucose 142 H 116 H 10/24/21 11:33 Glucose POC Glucose 134 H OUTPATIENT ANTIDIABETIC REGIMEN: * Metformin 500 mg QPM, Richard (last received 10/20) ASSESSMENT: 10/24 * Patient received total of 41 units of insulin yesterday, of which 28 units were basal insulin to help cover steroids * Fasting BSG 119 mg/dL - dexamethasone dose decreased to 6 mg daily, will continue with Lantus 15 units daily to help cover steroids * Continue same CF/CR. Plan to resume home metformin for this evening 10/23 * Admitted following spinal surgery, received 10 mg of dexamethasone IV * Anticipate steroid to cause hyperglycemia, will start novolog as weight based stress of 3, will give lantus 20 units x 1 now, and set scale up to weight based stress of 3 this evening. Overnight checks. PLAN FOR INPATIENT GLYCEMIC CONTROL: * Resume home metformin for this evening * Basal insulin * Lantus 15 units daily - given with daily dexamethasone 6 mg * Bolus insulin * NovoLog per scale ACHS or Q6hrs while NPO * Goal Range: Low 110 mg/dL - High 140 mg/dL * Correction Factor: 20 mg/dL/unit * Nutritional / Prandial insulin per carb ratio of 1 unit per 6 grams CHO consumed PLAN FOR DISCHARGE: * A1c 5.3% - Reasonable to continue home diabetic medications on discharge as long as patient is not experiencing frequent hypoglycemia
[2021-10-24] MEDS: LORazepam 0.5 MG TAB PO PRN (17:46)
[2021-10-24] MEDS: metFORMIN HCL ER 500 MG TABCR PO SCH (17:46)
[2021-10-24] MEDS: ALUMINUM/MAGNESIUM SUSP 30 ML UDC PO PRN (17:54)
[2021-10-24] MEDS: ASPIRIN 81 MG ECTAB PO SCH (21:08)
[2021-10-24] MEDS: ATORVASTATIN 10 MG TAB PO SCH (21:10)
[2021-10-24] MEDS: DOCUSATE SODIUM/SENNA 50/8.6MG TAB PO SCH (21:11)
[2021-10-24] MEDS: MELATONIN 3 MG TAB PO SCH (21:14)
[2021-10-25] MEDS: POLYETHYLENE (MIRALAX) 17 GM PACK PO SCH ×4 (01:17→18:46)
[2021-10-25] MEDS: LORazepam 0.5 MG TAB PO PRN ×2 (03:59→21:34)
[2021-10-25] MEDS: oxyCODONE HCL IR 5 MG TAB (IMMEDIATE RELEASE) PO PRN ×4 (04:01→21:34)
[2021-10-25 06:31] LABS: Hematocrit (blood only) 26.4 % (37-47); Hemoglobin 9.1 g/dL (12.0-16.0); Mean Corpuscular Hgb Conc 34.5 g/dL (32-36); Mean Corpuscular Volume 95.7 fL (80-100); Mean Platelet Volume 9.1 fL (7.4-10.4); Platelet Count 148 K/uL (130-400); RDW Coefficient of Variation 12.6 % (11.5-14.5); RDW Standard Deviation 43.7 fL (36.4-46.3); Red Blood Count 2.76 M/uL (4.2-5.4); White Blood Count 10.83 K/uL (4.8-10.8)
[2021-10-25 07:00] LABS: BUN Creatinine Ratio 27.2 (10-20); Calcium 8.6 mg/dl (8.5-10.1); Creatinine Clr Calc Pharmacy 59.4 ml/min; Est GFR (African American) 79.9 ml/min; Potassium 4.7 mmol/L (3.5-5.1)
[2021-10-25] MEDS: INSULIN ASPART 100 UNITS/ML 3 ML PEN SC SCH ×4 (08:15→20:56)
[2021-10-25] MEDS: CHOLECALCIFEROL 1,000 UNITS 25 MCG TAB PO SCH (08:16)
[2021-10-25] MEDS: PANTOprazole 40 MG TAB PO SCH (08:16)
[2021-10-25] MEDS: ZINC SULFATE 220 MG CAPSULE PO SCH (08:16)
[2021-10-25] MEDS: CEROVITE ADV FORMULA TAB PO SCH (08:16)
[2021-10-25] MEDS: METOCLOPRAMIDE HCL 5 MG TABLET PO SCH (08:16)
[2021-10-25] MEDS: MAGNESIUM OXIDE 400 MG TAB PO SCH ×2 (08:16→21:00)
[2021-10-25] MEDS: VITAMIN B COMPLEX TAB PO SCH (08:16)
[2021-10-25] MEDS: lisinopril 10 MG TAB PO SCH (08:17)
[2021-10-25] MEDS: MULTIVITAMIN TAB PO SCH (08:17)
[2021-10-25] MEDS: INSULIN GLARGINE SOLOSTAR 100 UNITS/ML 3 ML PEN SC SCH (08:52)
[2021-10-25] MEDS: dexAMETHasone 6 MG in SYRINGE 0 ML IV SCH (08:53)
[2021-10-25] MEDS ORDERED: INSULIN GLARGINE SOLOSTAR 100 UNITS/ML 3 ML PEN SC SCH (09:00)
--- NOTE | 2021-10-25 12:23 | Orthopedic Progress Note ---
Date of Service October 25, 2021 Assessment & Plan (1) Neurogenic claudication due to lumbar spinal stenosis: Plan: At this time we will continue physical therapy monitor her MARIXA output anticipate discharge home tomorrow with home health. Admission and Anticipated Discharge Date Admission Date: October 23, 2021 Subjective Patient's back pain is controlled leg symptoms improved Physical Exam Physical Exam: Patient is in the chair at the bedside. Is good strength testing. Appears comfortable. Results & Data ([facility]) Vital Signs (Past 12 Hours) Vital Signs Temp Pulse Resp BP Pulse Ox 10/25/21 07:16 36.6 C 68 16 127/61 98
[2021-10-25] MEDS: GABAPENTIN 300 MG CAP PO SCH ×2 (14:46→20:59)
--- NOTE | 2021-10-25 17:10 | Hospitalist Progress Note ---
Date of Service October 25, 2021 Assessment & Plan (1) Neurogenic claudication due to lumbar spinal stenosis: Plan: - POD#2 L3-S1 decompression and fusion by Dr. Chapman - activity and wound care orders as per ortho - pain control with bowel regimen - PT/OT - monitor H/H for acute blood loss anemia and transfuse blood products PRN - EBL 750 cc, drain output 970 cc (2) Acute blood loss as cause of postoperative anemia: Plan: -Hgb 9.7 (preop 13.5) --> 9.1 today -No indication for transfusion at this time, monitor CBC daily (3) Diabetes mellitus: Plan: -Hgb A1c 5.6 08/2021 -Hold home agents -glycemic pharmacy consulted by spine Ortho (4) HTN (hypertension): Plan: -BP controlled, continue lisinopril (5) Obesity: Plan: -BMI 37.1 (6) HALIMA (obstructive sleep apnea): Plan: -CPAP as per home settings (7) DVT prophylaxis: Plan: -TEDs/SCDs as per spine Ortho Thank you for this consultation. We will follow the patient with you during their hospital stay. You can reach a member of the [facility] Hospitalist Team 17/06 [facility] [place] Text. Admission and Anticipated Discharge Date Admission Date: October 23, 2021 Subjective Patient seen and examined. Follow-up for postop management after L3-S1 decompression and fusion. Patient sitting up in the chair, reports she is doing well. Has some worsening pain with movement however overall controlled. Passing flatus however no bowel movement yet. Urinating without difficulty. Denies chest pain shortness of breath. Reports isolated episode of lightheadedness with PT today. No abdominal pain or nausea. Physical Exam Constitutional: WD/WN, vitals as above no acute distress Respiratory: normal respiratory effort, lungs clear to auscultation Cardiovascular: Rate/Rhythm: regular rate and regular rhythm Vessels: normal peripheral pulses Extremities: no edema Gastrointestinal (Abdomen): Percussion/Palpation: abdomen soft; abdomen nontender Musculoskeletal: S/p back surgery, dressing in place with staining noted however not outside previously outlined area, drain in place draining bloody drainage, strength strong equal BLE Skin: no rashes, warm and dry Neurologic: no focal motor deficits Psychiatric: A+Ox3, euthymic affect Results & Data Results & Data ([facility]) Vital Signs (Past 12 Hours) Vital Signs Temp Pulse Resp BP Pulse Ox 10/25/21 07:16 36.6 C 68 16 127/61 98 Laboratory Results Short CBC 10/25/21 Range/Units 05:46 WBC 10.83 H (4.8-10.8) K/uL Hgb 9.1 L (12.0-16.0) g/dL Hct 26.4 L (37-47) % Plt Count 148 (130-400) K/uL [facility] 10/25/21 05:46 Sodium 135 L Potassium 4.7 Chloride 102 Carbon Dioxide 32 BUN 23 H D Creatinine 0.83 Glucose 103 H Calcium 8.6
[2021-10-25] MEDS: metFORMIN HCL ER 500 MG TABCR PO SCH (18:58)
[2021-10-25] MEDS: MELATONIN 3 MG TAB PO SCH (20:57)
[2021-10-25] MEDS: ATORVASTATIN 10 MG TAB PO SCH (20:58)
[2021-10-25] MEDS: DOCUSATE SODIUM/SENNA 50/8.6MG TAB PO SCH (20:58)
[2021-10-25] MEDS: ASPIRIN 81 MG ECTAB PO SCH (20:59)
[2021-10-26] MEDS: POLYETHYLENE (MIRALAX) 17 GM PACK PO SCH ×3 (01:21→11:35)
[2021-10-26 06:14] LABS: Hemoglobin 8.6 g/dL (12.0-16.0); Mean Corpuscular Hemoglobin 33.2 pg (25-34); Mean Corpuscular Hgb Conc 34.4 g/dL (32-36); Mean Corpuscular Volume 96.5 fL (80-100); Mean Platelet Volume 9.2 fL (7.4-10.4); Platelet Count 147 K/uL (130-400); RDW Coefficient of Variation 12.8 % (11.5-14.5); RDW Standard Deviation 44.5 fL (36.4-46.3); Red Blood Count 2.59 M/uL (4.2-5.4); White Blood Count 9.49 K/uL (4.8-10.8)
[2021-10-26 06:42] LABS: BUN Creatinine Ratio 24.7 (10-20); Calcium 8.5 mg/dl (8.5-10.1); Creatinine Clr Calc Pharmacy 60.2 ml/min; Est GFR (African American) 81.1 ml/min; Potassium 3.9 mmol/L (3.5-5.1)
[2021-10-26] MEDS: oxyCODONE HCL IR 5 MG TAB (IMMEDIATE RELEASE) PO PRN ×2 (06:47→11:47)
[2021-10-26] MEDS: INSULIN ASPART 100 UNITS/ML 3 ML PEN SC SCH ×2 (08:11→11:31)
[2021-10-26] MEDS: INSULIN GLARGINE SOLOSTAR 100 UNITS/ML 3 ML PEN SC SCH (08:12)
[2021-10-26] MEDS: dexAMETHasone 6 MG in SYRINGE 0 ML IV SCH (08:14)
[2021-10-26] MEDS: PANTOprazole 40 MG TAB PO SCH (08:15)
[2021-10-26] MEDS: GABAPENTIN 300 MG CAP PO SCH ×2 (08:15→14:20)
[2021-10-26] MEDS: METOCLOPRAMIDE HCL 5 MG TABLET PO SCH (08:16)
[2021-10-26] MEDS: VITAMIN B COMPLEX TAB PO SCH (08:16)
[2021-10-26] MEDS: ZINC SULFATE 220 MG CAPSULE PO SCH (08:16)
[2021-10-26] MEDS: CHOLECALCIFEROL 1,000 UNITS 25 MCG TAB PO SCH (08:17)
[2021-10-26] MEDS: lisinopril 10 MG TAB PO SCH (08:17)
[2021-10-26] MEDS: CEROVITE ADV FORMULA TAB PO SCH (08:17)
[2021-10-26] MEDS: MULTIVITAMIN TAB PO SCH (08:17)
[2021-10-26] MEDS: MAGNESIUM OXIDE 400 MG TAB PO SCH (09:02)
[2021-10-26] MEDS: ALUMINUM/MAGNESIUM SUSP 30 ML UDC PO PRN (10:17)
--- NOTE | 2021-10-26 12:33 | Discharge Summary ---
Date of Service October 26, 2021 Admission HPI Per Admitting Provider This is a 76-year-old male presents with chronic persistent back and bilateral leg pain. Failing course of nonoperative care she for surgical invention. Principal Diagnosis Lumbar spinal stenosis with neurogenic claudication Discharge Data Allergies Allergy/AdvReac Type Severity Reaction Status Date / Time nickel Allergy Intermediate Rash/bleedi Verified 10/23/21 06:19 ng No Known Drug Allergies Allergy Verified 10/23/21 06:19 Consultations 10/23/21 14:09 Consult Hospitalist Routine Procedures Performed Operation Date: 09/26/21 07:45 <No data on this case meets the specified criteria> Operation Date: 10/23/21 07:45 Actual Procedures p L3-S1 Decompression Fusion, Spinal Cord Monitoring, Application of Bone Graft, Placement of Interbody L4-L5 - Shade Chapman DO Ordered Studies 10/23/21 07:45 FL lumbar spine 2-3V Routine Hospital Course (1) Neurogenic claudication due to lumbar spinal stenosis: Patient underwent lumbar decompression fusion tolerated this as well as taken to the floor postoperative. Postop day 1 she tolerated failure physical therapy progressed the postop day #2 on postop day #3 she was ambulating well MARIXA drain decreasing appropriately. Subsequent discharge home. Discharge orders instructions from the chart for further review. Total Time Total Time Spent Total Time Spent (In Minutes): 20 minutes Discharge Plan Discharge Items Patient Disposition: Home - Home Health Services Reason For Visit: Spinal Stenosis, Lumbar Region with Neurogenic Cla Discharge Diagnosis: Lumbar spinal stenosis with neurogenic claudication Activity: As commented below Non-emergency contact: Primary Care Provider Call non-emergency contact if: you have any medication questions Follow-up/Referrals: Rebecca Arroyo PA-C [Primary Care Provider] - (Date & Time 10/30/2021 11:00 AM Provider Angel Celeste III, MD Department Family Practice [facility] ) Diet: Regular Addtl Attending Provider Instructions: ACTIVITY RECOMMENDATIONS: SELF CARE INSTRUCTIONS AFTER THORACIC/LUMBAR FUSIONS 1. You may walk to your tolerance. It is good exercise for your legs and back. Expect some back and intermittent leg aches and pains. 2. You may perform "counter-top" level activities (make a sandwich, jennie with a project, etc.). 3. No bending or lifting of more than 10 pounds or back twisting of any nature (roll like a log when turning in bed). 4. You may ride in a car for 20-30 minutes at a time. No driving until after your first visit with your doctor. 5. Frequent changes of position and restricting sitting to 30 minutes at a time will help limit the amount of back spasms and stiffness you may experience. 6. You may discontinue the use of ambulatory aids (cane, crutches, etc.) once your strength and confidence allow. 7. You may trimming department blocker the shower and let water strike your incision when you arrive home at least once daily. Do not take a tub bath, sit in a hot tub or go into a swimming pool until after your first recheck in the office. SPECIAL CARE INSTRUCTIONS: VERY IMPORTANT TO READ AND REVIEW A. Your surgical incision has been closed with a cosmetic suture under the skin that will dissolve in about 6 weeks. In 14 days, you can use a pair of clean scissors and cut the suture that is left outside of the skin at the ends of your incision. 1. The small skin tapes can be removed 7 days after surgery if they have not fallen off by that point. 2. You may keep the wound open to air as much as possible to promote healing after post-op day number 5 unless told otherwise by your doctor. 3. If you think the wound looks like it is becoming infected (redness or worsening drainage) and/or you are experiencing fever, chill or worsening back pain and muscle spasms, contact the office so that we may evaluate you as soon as possible. B. Complications are uncommon, but please contact us if you have any signs or symptoms of: 1. wound infection (fever higher than 102.5 degrees F, redness, separation of wound, drainage, or increasing pain from the incision) 2. blood clots in legs (pain, swelling, redness and warmth in legs) 3. urinary tract infection (fever higher than 102.5 degrees F, burning upon urination or increased frequency of urination) 4. nerve problems (inability to walk on your toes or heels, numbness, loss of bowel or bladder control) 5. any other symptoms that concern you C. Please call the office at if you have any concerns or questions about your operation or recovery. D. No smoking! Smoking drastically decreases the chance of a solid fusion. E. Do not take any anti-inflammatory medications (Indocin, Advil, Motrin, Aspirin, Naprosyn, etc.) as these may inhibit the chance of a solid fusion. Tylenol is okay to take for pain. MANAGING PAIN AFTER SPINAL SURGERY 1. Narcotic medication is intended for short-term use and will be provided for surgical pain. Surgical pain usually lasts for a period of 4-6 weeks. Narcotic medication includes Percocet, Vicodin, Darvocet, Tylenol #3 or Lortab. 2. Longer-term pain is more appropriately treated with non-narcotic medication such as Tylenol ES. 3. Muscle spasm is not appropriately treated with narcotics. Muscle relaxers such as Soma, Flexeril or Skelaxin can be used along with Tylenol ES. 4. Remember that we all live with some "aches and pains". This is not unusual or uncommon after an injury or as we get older. a. Back pain is expected and may include muscle spasms for 4 to 6 weeks after surgery. The pain should gradually improve. If the pain worsens for no apparent reason, please contact the office. b. Intermittent leg pain may also be experienced and should not be concerned about unless it worsens for no apparent reason. If so, please contact the office. 5. We will provide appropriate medication within the normal guidelines of their prescribed use. We will also be very cautious and aware of potential abuse and extended duration of patients' medication needs. a. Pain medications are for your comfort and to assist with sleep and rest so that the tissue can heal. They are not provided in order to return to normal activity and should not be used through the day. To do so or worsening pain at night can result from ongoing tissue damage and development of tolerance to the prescribed medicine. 6. Please allow 2-3 days to process refills. Prescriptions will not be mailed but must be picked up at the office. FOLLOW UP VISIT: Keep your scheduled follow-up appointment. Any questions, please call the office at . Pending Studies at Discharge: No Stand-Alone Forms: My [employer], Smoking Cessation Medications and DC Order Prescriptions: New tramadol 50 mg tablet 50 mg PO Q6H PRN (Reason: pain, moderate) Qty: 30 RF: 0 oxycodone 5 mg tablet 5 mg PO Q6H PRN (Reason: pain, severe) Qty: 30 RF: 0 Continued ciprofloxacin HCl 500 mg tablet 500 mg PO BID 6 Days Qty: 12 RF: 0 methylprednisolone [Medrol ([place])] 4 mg tablets,dose pack 4 mg PO USEASDIRECTD Qty: 21 RF: 0 valacyclovir [Valtrex] 500 mg Tablet 500 mg PO QAM RF: 0 aspirin [Aspirin Low Dose] 81 mg Tablet,Delayed Release (Dr/Ec) 81 mg PO HS RF: 0 lisinopril 10 mg Tablet 10 mg PO QAM RF: 0 lansoprazole 15 mg Capsule,Delayed Release(Dr/Ec) 15 mg PO QAM RF: 0 gabapentin 100 mg Capsule 300 mg PO BID RF: 0 Trulicity 0.75 mg/0.5 mL Pen Injector 0.75 mg SUBCUT Q12D RF: 0 Dry Eye Formula 133 mg-167 mg- 170 mg Capsule 1 cap PO TID RF: 0 metformin 500 mg Tablet 500 mg PO QPM RF: 0 atorvastatin 10 mg Tablet 10 mg PO QPM RF: 0 magnesium oxide 500 mg Tablet 500 mg PO BID RF: 0 vitamin B complex Tablet 1 tab PO QAM RF: 0 PreserVision AREDS-2 [id number] Capsule 1 tab PO QAM RF: 0 diphenhydramine HCl 25 mg Tablet 25 mg PO DAILY PRN (Reason: Allergy Symptoms) RF: 0 polyethylene glycol 3350 [Miralax] 17 gram Powder In Packet 17 g PO 2XWK RF: 0 metoclopramide HCl [Reglan] 5 mg Tablet 5 mg PO QAM RF: 0 gabapentin 300 mg Capsule 600 mg PO HS RF: 0 zinc 50 mg Tablet 50 mg PO QAM RF: 0 cholecalciferol (vitamin D3) [Vitamin D3] 25 mcg (1,000 unit) Tablet,Chewable 25 mcg PO QAM RF: 0 melatonin 10 mg Capsule 10 mg PO HS RF: 0 Medical Marijuana 1 dose PO HS PRN (Reason: Sleep) RF: 0 Discharge Orders: Discharge Order (Routine); Ordered 10/26/21 Ordered By: Shade Chapman Admission Data Admit Date/Time: 10/23/21 10:30 Attending Provider: Shade Chapman Admit Provider: Shade Chapman Primary Care Provider: Rebecca Arroyo Other Providers: Gayathri Mckeon ; Chelsy Herndon ; [facility],Home Healthcare ; [place]
--- NOTE | 2021-10-26 13:32 | Hospitalist Progress Note ---
Date of Service October 26, 2021 Assessment & Plan (1) Neurogenic claudication due to lumbar spinal stenosis: Plan: - POD#3 L3-S1 decompression and fusion by Dr. Chapman - activity and wound care orders as per ortho - pain control with bowel regimen - PT/OT - monitor H/H for acute blood loss anemia and transfuse blood products PRN (2) Acute blood loss as cause of postoperative anemia: Plan: -Hgb 9.7 (preop 13.5) --> 9.1 --> 8.6 today -Asympomatic, vital signs stable -No indication for transfusion at this time, monitor CBC daily (3) Diabetes mellitus: Plan: -Hgb A1c 5.6 08/2021 -Hold home agents -glycemic pharmacy consulted by spine Ortho (4) HTN (hypertension): Plan: -BP controlled, continue lisinopril (5) Obesity: Plan: -BMI 37.1 (6) HALIMA (obstructive sleep apnea): Plan: -CPAP as per home settings (7) DVT prophylaxis: Plan: -TEDs/SCDs as per spine Ortho Thank you for this consultation. We will follow the patient with you during their hospital stay. You can reach a member of the [facility] Hospitalist Team 17/06 via the [facility] Hospitalist role in [place] Text. Admission and Anticipated Discharge Date Admission Date: October 23, 2021 Subjective Patient seen and examined in follow-up for postop management after L3-S1 decompression and fusion. Resting comfortably, denies any pain presently. Denies any lightheadedness, visual changes, palpitations or shortness of breath. Passing flatus but no bowel movement yet. Urinating without issue. No fever, chills, chest pain, shortness of breath, nausea, vomiting, diarrhea. Review of Systems Review of Systems: ROS per HPI, all other systems reviewed and negative Physical Exam Physical Exam: Gen: WD/WN, NAD, lying in bed, A&Ox3 HEENT: Normocephalic, atraumatic, conjunctivae moist, sclerae anicteric, mucous membranes moist Lung: Clear to Auscultation bilaterally, no wheezes/rales/rhonchi Heart: Regular rate, regular rhythm, no murmurs, rubs, or gallops Abdomen: Soft, NT, ND +BS x 4 Extremities: Spinal dressing c/d/i. MARIXA drain visualized. No edema Skin: Warm, no rash Results & Data Results & Data ([facility]) Vital Signs (Past 12 Hours) Vital Signs Temp Pulse Resp BP Pulse Ox 10/26/21 10:43 132/66 10/26/21 06:30 37 C 72 20 99/53 L 97 Laboratory Results Short CBC 10/26/21 Range/Units 05:35 WBC 9.49 (4.8-10.8) K/uL Hgb 8.6 L (12.0-16.0) g/dL Hct 25.0 L (37-47) % Plt Count 147 (130-400) K/uL BMP 10/26/21 05:35 Sodium 136 Potassium 3.9 D Chloride 103 Carbon Dioxide 29 BUN 20 H Creatinine 0.82 Glucose 107 H Calcium 8.5 Diagnostic Findings Lumbar Spine X-Ray 10/23/21 07:45 FL lumbar spine 2-3V CLINICAL HISTORY: L3-S1 DECOMPRESSION AND FUSION WITH INTERBODY COMPARISON STUDY: None. FLUOROSCOPY TIME: 32 seconds. FINDINGS: 3 fluoroscopic spot images of the lumbar spine demonstrate posterior decompression fusion from L3 through S1 with pedicle screws and rods. The hardware appears intact. IMPRESSION: Fluoroscopic assistance provided for L3-S1 posterior decompression and fusion ACT 112: Negative or not required by law. Electronically signed by: Monty Wilkinson M.D. 10/23/2021 10:36 AM
== END 2021-10-26 14:38 | disposition home health service (06) | DRG 454 ==
LOC: ASU 06:33 → PACUINP 10:30 → ASUINP 10-25 06:51
DX: M43.16 Spondylolisthesis, lumbar region; Z79.899 Other long term (current) drug therapy; Z79.84 Long term (current) use of oral hypoglycemic drugs; Z91.048 Other nonmedicinal substance allergy status; Z79.82 Long term (current) use of aspirin; E66.9 Obesity, unspecified; G47.33 Obstructive sleep apnea (adult) (pediatric); M43.17 Spondylolisthesis, lumbosacral region; D62 Acute posthemorrhagic anemia; M48.062 Spinal stenosis, lumbar region with neurogenic claudication; Z82.49 Family history of ischemic heart disease and other diseases of the circulatory system; Z68.34 Body mass index [BMI] 34.0-34.9, adult; E78.5 Hyperlipidemia, unspecified; I10 Essential (primary) hypertension; K21.9 Gastro-esophageal reflux disease without esophagitis; E11.40 Type 2 diabetes mellitus with diabetic neuropathy, unspecified

== ENCOUNTER 2023-12-05 14:26 | Inpatient (IN) ==
--- NOTE | 2023-12-05 15:18 | XRay Report ---
XR chest 1V not portable HISTORY: Chest pain, nonspecific COMPARISON: Chest 09/08/2021. FINDINGS: No pneumothorax. No pleural effusions. The cardiac silhouette remains mildly enlarged. No n ew focal lung consolidations to suggest a pneumonia. No evidence for pulmonary edema. Bibasilar inter stitial thickening persists. Lumbar spinal fusion hardware is partially visualized. IMPRESSION: Cardiomegaly and chronic bibasilar interstitial thickening again noted. Otherwise, no acute process w ithin the chest. ACT 112: Negative or not required by law. Electronically signed by: Monty Wilkinson M.D. 12/05/2023 3:16 PM
[2023-12-05 15:28] LABS: Basophils # (auto) 0.03 K/uL (0.00-0.20); Basophils % (auto) 0.5 %; Eosinophils # (auto) 0.15 K/uL (0.00-0.50); Eosinophils % (auto) 2.4 %; Hematocrit (blood only) 39.8 % (37.0-47.0); Hemoglobin 13.6 g/dl (12.0-16.0); Immature Granulocytes # (auto) 0.02 K/uL (0.01-0.20); Immature Granulocytes % (auto) 0.3 %; Lymphocytes # (auto) 2.15 K/uL (1.20-3.40); Lymphocytes % (auto) 34.5 %; Mean Corpuscular Hemoglobin 32.2 pg (25.0-34.0); Mean Corpuscular Hgb Conc 34.2 g/dL (32.0-36.0); Mean Corpuscular Volume 94.1 fL (80.0-100.0); Mean Platelet Volume 9.3 fL (9.4-12.4); Monocytes # (auto) 0.95 K/uL (0.11-0.59); Monocytes % (auto) 15.2 %; Neutrophils # (auto) 2.93 K/uL (1.40-6.50); Neutrophils % (auto) 47.1 %; Platelet Count 188 K/uL (130-400); RDW Coefficient of Variation 12.2 % (11.5-14.5); RDW Standard Deviation 41.6 fL (36.4-46.3); Red Blood Count 4.23 M/uL (4.20-5.40); White Blood Count 6.23 K/ul (4.8-10.8)
[2023-12-05 15:50] LABS: Alanine Aminotransferase 14 U/L (7-52); Albumin Globulin Ratio 1.5 (0.9-2); Albumin Level 4.4 gm/dl (3.4-5.0); Alkaline Phosphatase 66 U/L (34-104); Anion Gap 8 (3-11); Aspartate Aminotransferase 18 U/L (13-39); BUN Creatinine Ratio 21.5 (10-20); Bilirubin,Total 0.9 mg/dl (0.2-1.0); Blood Urea Nitrogen 14 mg/dl (6-23); Calcium 9.5 mg/dl (8.6-10.3); Carbon Dioxide 26 mmol/L (21-32); Chloride 102 mmol/L (98-107); Est GFR (African American) 99.3 ml/min; Est GFR (Non-African American) 85.6 ml/min; Glucose 87 mg/dl (70-99(Fasting)); Sodium 136 mmol/L (136-145); Total Protein 7.4 gm/dl (6.0-8.3)
[2023-12-05 15:52] LABS: Troponin I High Sensitivity 3.9 pg/ml (0-14)
[2023-12-05 16:04] LABS: Partial Thromboplastin Ratio 0.9; Partial Thromboplastin Time 26 Seconds (21-31); Prothrombin Time 11.2 Seconds (9.0-12.0)
--- NOTE | 2023-12-05 16:34 | Electrocardiogram Report ---
Test Reason : Blood Pressure : / mmHG Vent. Rate : 079 BPM Atrial Rate : 079 BPM P-R Int : 178 ms QRS Dur : 080 ms QT Int : 366 ms P-R-T Axes : 069 002 012 degrees QTc Int : 419 ms Normal sinus rhythm Poor R wave progression, consider anterior KS vs. lead placement vs. LVH Abnormal ECG When compared with ECG of 08-SEP-2021 10:24, PRWP now present Confirmed by Abdi Romo ([id number]) on 12/05/2023 4:34:02 PM Referred By: Confirmed By:Abdi Romo
--- NOTE | 2023-12-05 17:01 | Emergency Department Note ---
Impression & Plan Chest pain ADMIT ED Provider Note HPI: History obtained from patient. The patient is a 78-year-old female with history of type 2 diabetes, hypertension, hyperlipidemia, presents emergency department chief complaint of chest pain. Patient states that she developed an episode of chest pain this past Saturday when she was shoveling snow, she states that towards the end of shoveling the snow she began to develop a sensation of chest pain that radiated somewhat to her back. Patient states this then subsided. Patient states she was not having chest pain until again this morning when she developed the same type of pain. She states it was anterior and radiated somewhat to her upper back. Patient states it is not intensely painful but does feel abnormal. Patient states it feels like a squeezing sensation. On arrival here to the ED the patient is hemodynamically stable, she is in no acute distress on my initial assessment. Patient states that she had a cardiac catheterization done in 2008 and was told that her arteries appeared unremarkable at that time. ROS: - Per HPI Differential Diagnosis: Acute coronary syndrome, pulmonary embolism, aortic dissection, pneumothorax, esophagitis, gastritis, amongst other potential pathologies. *Outpatient medications and allergy history reviewed. PE: General: Alert HEENT: Normocephalic, trachea midline Eyes: Extraocular eye movement is intact, no scleral erythema Pulmonary: Clear to auscultation bilaterally, no wheezing Cardio: Regular rate and rhythm GI: Abdomen is soft to palpation : No suprapubic tenderness MSK: No evidence of trauma or malformation of the extremities, no edema Skin: No evidence of rash Neuro: Alert, no focal deficits Psychiatric: Cooperative INDEPENDENT INTERPRETATIONS: court recording monitor: (As interpreted by myself): - An order was placed for continuous cardiac monitoring - Patient was noted to be in sinus rhythm with rate of 80 EKG: (As interpreted by myself): Rate: 79 Rhythm: Normal sinus rhythm Intervals: Within normal limits ST changes: No ST elevation Time: 1448 Chest x-ray: (As interpreted by myself): No acute process Medical Decision Making: IV was established and lab work obtained, patient was placed on cardiac exercise physiologist when placed in ED room. Lab work shows no leukocytosis, hemoglobin is normal, platelet count is normal, CMP does not show any critical findings, troponin is negative x 1. EKG per my review does not show any acute ischemic changes however there is noted to be poor R wave progression that appears new in comparison to EKG from 2020. Patient tells me she did have an episode of chest pain when she was shoveling snow 2 days ago and then again had another episode of chest pain at rest today. Patient does have multiple risk factors including age, hypertension, hyperlipidemia, type 2 diabetes. I feel given the typical episode of chest pain that she experienced recently she would benefit from admission for further testing and cardiology consultation. HEART SCORE = 6. Patient is in agreement for admission. Case was discussed with the on-call midlevel provider for [facility] and the patient was placed for admission in stable condition. Consultants/Discussions held with other healthcare providers: -Hospitalist, Dr. Arriaga Disposition discussion held by myself with: -Patient Diagnosis: 1. Chest pain, acute 2. Poor R wave progression on EKG, acute 3. History of type 2 diabetes 4. History of hyperlipidemia 5. History of hypertension Disposition: Admission Jairo Burden DO Emergency Medicine Past Med/Surg History Medical History (Updated 12/05/23 @ 22:02 by Jairo Burden DO) Gastroparesis Obesity Neuropathy of foot Arthritis of foot Left carpal tunnel syndrome GERD (gastroesophageal reflux disease) controlled Diabetes mellitus, type 2 NIDDM Anxiety controlled without meds Depression controlled without meds Migraine hx Hypertension Hyperlipidemia Sleep apnea CPAP (compliant) Syncope Three episodes in 2014. Cardiac workup included echo, event monitor and tilt- table test, all negative. Determined to be "swallow syncope," as episodes were preceded by patient ingesting hot liquid. Follows with [facility] ([facility] in [place], Dr. Cristiano Greenfield). 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 No episodes since 2015. S/P right ankle fusion at [facility] 11/2019 under [place] without issue* Pancreatitis ~2014 Schatzki's ring RLS (restless legs syndrome) Surgical History History of back surgery fusion 2020 History of tooth extraction with implants Hx of cataract extraction R/L History of ankle surgery Right ankle fusion (12/08/19): Grade view 2, MAC#3, ETT 7.[address] [facility] History of anesthesia reaction post-op "brain fog" for several weeks H/O breast biopsy L breast, metal marker remains H/O release of tendon right wrist History of open reduction and internal fixation (ORIF) procedure right wrist History of carpal tunnel release Right S/P Botox injection Bladder (for urinary incontinence) History of esophageal dilatation History of esophagogastroduodenoscopy (EGD) History of colonoscopy History of endoscopic sinus surgery History of adenoidectomy History of cardiac cath [address] [facility] > no stents Hx of tonsillectomy H/O tubal ligation Family History Unknown Heart disease Lymphoma Father Hypertension Other No family history of adverse response to anesthesia Social History Smoking Status: Never smoker Second Hand Exposure: No; Do You Dip or Chew Tobacco: No; Hx Alcohol Use: Yes Alcohol type: beer, wine and hard liquor Hx Substance Use: Yes Substance Use Type Other:: has card Preferred Language: Turkmen Communication Ability: Effective Visual Impairment: No Limitations Processing Engineer Required: No Beliefs That Will Affect Care: None Current Living Situation: Alone Feels Safe at Home: Yes Assistive Devices: CPAP and Walker Allergies Allergies Allergy/AdvReac Type Severity Reaction Status Date / Time nickel Allergy Intermediate Rash/bleedi Verified 09/04/23 11:05 ng No Known Drug Allergies Allergy Verified 09/04/23 11:05 Home Meds Home Medications Medication Instructions Recorded Confirmed aspirin 81 mg tablet,delayed 81 mg PO HS 11/09/19 12/05/23 release (Mars Low Dose Aspirin) atorvastatin 10 mg tablet 10 mg PO QPM 11/09/19 12/05/23 lisinopril 10 mg tablet 10 mg PO QAM 11/09/19 12/05/23 valacyclovir 500 mg tablet 500 mg PO Q OTHER DAY genital 11/09/19 12/05/23 (Valtrex) herpes vit C 250 mg-vit E 90 mg-zinc 40 1 tab PO QAM 11/09/19 12/05/23 mg-copper 1 eb-eporzz-[id number] capsule (PreserVision AREDS-2) vitamin B complex 1 tab PO QAM 11/09/19 12/05/23 gabapentin 300 mg capsule See Rx Instructions .Route .COMPLEX 09/06/21 12/05/23 metoclopramide HCl 5 mg tablet 5 mg PO QDD 09/06/21 12/05/23 (Reglan) polyethylene glycol 3350 17 gram 17 g PO 3XWK 09/06/21 12/05/23 oral powder packet (Miralax) biotin 1000 1,000 mcg PO DAILY 09/04/23 12/05/23 coQ10 (ubiquinol) 100 mg capsule 100 mg PO Q OTHER DAY 09/04/23 12/05/23 (Qunol Quan CoQ10) dulaglutide 0.75 mg/0.5 mL 0.75 mg subcut Q10D 09/04/23 12/05/23 subcutaneous pen injector (Trulicity) ferrous sulfate 142 mg (45 mg 142 mg PO QPM 09/04/23 12/05/23 iron) tablet,extended release omega 9-dww-jst-fish oil 1,000 mg 1 cap PO TID 09/04/23 12/05/23 (120 mg-180 mg) capsule (Fish Oil) ondansetron HCl 4 mg tablet 4 mg PO Q8H PRN Nausea 09/04/23 12/05/23 pantoprazole 20 mg tablet,delayed 20 mg PO DAILY 09/04/23 12/05/23 release metformin 500 mg tablet,extended 500 mg PO QDD 12/05/23 12/05/23 release 24 hr Results & Data (ED) Vital Signs Vital Signs - 24 hr 12/05/23 14:30 12/05/23 17:36 Temperature 36.9 C Temperature Source Temporal Artery Scan Pulse Rate 79 Pulse Rate [Apical] 75 Pulse Rhythm [Apical] Regular Pulse Strength [Apical] Normal Respiratory Rate 20 18 Respiratory Effort / Characteristics Non-Labored Spontaneous Respiratory Depth Normal Respiratory Pattern Regular Blood Pressure 136/80 Blood Pressure [Left Arm] 144/75 H Blood Pressure Mean 98 Blood Pressure Mean [Left Arm] 98 Pulse Oximetry 95 98 Oxygen Delivery Method Room Air Room Air Sepsis Recent Fever Within 48 Hours No Sepsis New/Unexplained Change in Mental Status N/A Sepsis Action Taken by Nursing No Action Required Laboratory Data 12/05/23 14:50 12/05/23 14:50 Lab Results 12/05/23 Range/Units 14:50 WBC 6.23 (4.8-10.8) K/ul RBC 4.23 (4.20-5.40) M/uL Hgb 13.6 (12.0-16.0) g/dl Hct 39.8 (37.0-47.0) % MCV 94.1 (80.0-100.0) fL MCH 32.2 (25.0-34.0) pg MCHC 34.2 (32.0-36.0) g/dL RDW Std Deviation 41.6 (36.4-46.3) fL RDW Coeff of Nam 12.2 (11.5-14.5) % Plt Count 188 (130-400) K/uL MPV 9.3 L (9.4-12.4) fL Immature Gran % (Auto) 0.3 % Neut % (Auto) 47.1 % Lymph % (Auto) 34.5 % [place] % (Auto) 15.2 % Eos % (Auto) 2.4 % Baso % (Auto) 0.5 % Neut # (Auto) 2.93 (1.40-6.50) K/uL Lymph # (Auto) 2.15 (1.20-3.40) K/uL [place] # (Auto) 0.95 H (0.11-0.59) K/uL Eos # (Auto) 0.15 (0.00-0.50) K/uL Baso # (Auto) 0.03 (0.00-0.20) K/uL Immature Gran # (Auto) 0.02 (0.01-0.20) K/uL PT 11.2 (9.0-12.0) Seconds INR 1.0 (0.9-1.1) APTT 26 (21-31) Seconds PTT Ratio 0.9 Sodium 136 (136-145) mmol/L Potassium 4.0 (3.5-5.1) mmol/L Chloride 102 (98-107) mmol/L Carbon Dioxide 26 (21-32) mmol/L Anion Gap 8 (3-11) BUN 14 (6-23) mg/dl Creatinine 0.65 (0.6-1.2) mg/dl Est Cr Clr Drug Dosing Not Reportable Est GFR ( Amer) 99.3 ml/min Est GFR (Non-Af Amer) 85.6 ml/min BUN/Creatinine Ratio 21.5 H (10-20) Glucose 87 (70-99(Fasting)) mg/dl Calcium 9.5 (8.6-10.3) mg/dl Total Bilirubin 0.9 (0.2-1.0) mg/dl AST 18 (13-39) U/L ALT 14 (7-52) U/L Alkaline Phosphatase 66 (34-104) U/L Troponin I High Sens 3.9 (0-14) pg/ml Total Protein 7.4 (6.0-8.3) gm/dl Albumin 4.4 (3.4-5.0) gm/dl Globulin 3.0 (2.5-4.0) gm/dl Albumin/Globulin Ratio 1.5 (0.9-2) Administered Medications Aspirin (Aspirin 81 Mg Ectab) 81 mg PO HS ANALI Stop: 01/04/24 20:59 Last Admin: 12/05/23 21:11 Dose: 81 mg Documented By: ACC Atorvastatin Calcium (Atorvastatin 10 Mg Tab) 10 mg PO QPM ANALI Stop: 01/04/24 20:59 Last Admin: 12/05/23 21:11 Dose: 10 mg Documented By: ACC Ferrous Sulfate (Ferrous Sulfate 325 Mg Tab) 162.5 mg PO QPM ANALI Stop: 01/04/24 20:59 Last Admin: 12/05/23 21:11 Dose: 162.5 mg Documented By: ACC Discontinued Medications Valacyclovir HCl (Valacyclovir Hcl 500 Mg Tablet) 500 mg PO Q48H ANALI Stop: 01/04/24 19:59 Last Admin: 12/05/23 21:35 Dose: Not Given Documented By: ACC Imaging Data Radiologist's Impression: Chest X-Ray 12/05/23 14:36 XR chest 1V not portable HISTORY: Chest pain, nonspecific COMPARISON: Chest 09/08/2021. FINDINGS: No pneumothorax. No pleural effusions. The cardiac silhouette remains mildly enlarged. No new focal lung consolidations to suggest a pneumonia. No evidence for pulmonary edema. Bibasilar interstitial thickening persists. Lumbar spinal fusion hardware is partially visualized. IMPRESSION: Cardiomegaly and chronic bibasilar interstitial thickening again noted. Otherwise, no acute process within the chest. ACT 112: Negative or not required by law. Electronically signed by: Monty Wilkinson M.D. 12/05/2023 3:16 PM Discharge Plan Visit Data Chief Complaint: Chest Pain Stated Complaint: CHEST AND BACK PAIN ED Provider: Jairo Burden Discharge Problem: Chest pain Discharge Instructions Interventions: ED Discharge Assessment Last Done: 12/05/23 19:38 Discharge Problem: Chest pain Qualifiers: Chest pain type: unspecified Qualified Code(s): R07.9 - Chest pain, unspecified
--- NOTE | 2023-12-05 18:21 | History & Physical Report ---
Date of Service December 05, 2023 Assessment & Plan (1) Chest pain: Plan: This is a 78 y/o female with HTN, dyslipidemia, HALIMA on CPAP, DM2, peripheral neuropathy, gastroparesis, GERD and other history as outlined below who presented to the ED today for evaluation of chest pain. Chest pain is new over the last few days and seems to be brought on by exertion. Pt has multiple risk factors for cardiac disease including HTN, dyslipidemia, and DM2. She also has a significant family history of cardiac disease. Although her initial troponin is negative, she has multiple risk factors and a history suspicious for cardiac ischemia so she was referred for admission for further work-up. - Observe in PCU - Repeat troponin for total of 3 (Q6 hours) - Check ECHO - Consult cardiology for recommendations on additional work-up - will make pt NPO at midnight for potential additional testing - Lipid panel in AM - Repeat EKG in AM and with new/worsening chest pain overnight (2) Diabetes mellitus: Plan: Pt reports A1c in Sep <6. She has only been using Trulicity every 10-12 days due to cost, instead of weekly - Hold Metformin while admitted - Insulin sliding scale - Diabetic diet (3) HTN (hypertension): Plan: Continue outpatient regimen for now pending cardiac w/u (4) HALIMA (obstructive sleep apnea): Plan: Chronic, stable - CPAP at HS (5) Dyslipidemia: Plan: Chronic - check lipid panel in AM, continue statin (6) Gastroparesis: Plan: Pt currently using Reglan with largest meal of the day due to side effects when uses more frequently - will continue home regimen Plan Continue other home medications as appropriate. Pt seen and reviewed with collaborating physician, Dr. Arriaga. Plan of care discussed and as outlined above. Code Status: Full code DVT Prophylaxis: Lovenox Henry Roberts PA-C History of Present Illness Chief Complaint: Chest pain Primary Care Provider: Rebecca Arroyo PA-C This is a 78 y/o female with HTN, dyslipidemia, HALIMA on CPAP, DM2, peripheral neuropathy, gastroparesis, GERD and other history as outlined below who presented to the ED today for evaluation of chest pain. Two days ago, pt was shoveling her driveway and towards the end, she developed an aching pain in her left chest and left upper back. She finished shoveling but then had to rest. The pain lasted 2-3 hours before resolving. Yesterday, she had no chest pain. This morning, she took out her trash and noticed that she again developed the aching in her left chest and left upper back. Unlike two days ago, this discomfort did not go away so she contacted her PCP who referred her to the ED for additional evaluation. Currently, she rates the pain as 3/10. It does not seem positional. She has not noticed a rash in the area. She denies associated palpitations, dyspnea, lightheadedness, syncope, vomiting. She has chronic intermittent issues with nausea due to gastroparesis, which is unchanged from baseline. She had a stress test in 2013 that was negative for ischemia. She does follow with Dr. Tinajero for hypertension with last visit 2-3 months ago, was doing well at that time. She has a family history of heart disease - father of an NE at age 65, all four grandparents had heart disease/ from an NE. No heart disease in mother. No recent illness. She walked two miles over the weekend without any chest pain or unusual dyspnea. She has chronic back pain, which is unchanged. She previously used medical marijuana for her back issues with some relief, but she is not currently taking this and has not for the last six months. Allergies Allergy/AdvReac Type Severity Reaction Status Date / Time nickel Allergy Intermediate Rash/bleedi Verified 09/04/23 11:05 ng No Known Drug Allergies Allergy Verified 09/04/23 11:05 Home Medications Medication Instructions Recorded Confirmed Type aspirin 81 mg tablet,delayed 81 mg PO HS 11/09/19 12/05/23 History release (Mars Low Dose Aspirin) atorvastatin 10 mg tablet 10 mg PO QPM 11/09/19 12/05/23 History lisinopril 10 mg tablet 10 mg PO QAM 11/09/19 12/05/23 History valacyclovir 500 mg tablet 500 mg PO Q OTHER DAY genital 11/09/19 12/05/23 History (Valtrex) herpes vit C 250 mg-vit E 90 mg-zinc 40 1 tab PO QAM 11/09/19 12/05/23 History mg-copper 1 kn-ivknof-zkvuds capsule (PreserVision AREDS-2) vitamin B complex 1 tab PO QAM 11/09/19 12/05/23 History gabapentin 300 mg capsule See Rx Instructions .Route .COMPLEX 09/06/21 12/05/23 History metoclopramide HCl 5 mg tablet 5 mg PO QDD 09/06/21 12/05/23 History (Reglan) polyethylene glycol 3350 17 gram 17 g PO 3XWK 09/06/21 12/05/23 History oral powder packet (Miralax) biotin 1000 1,000 mcg PO DAILY 09/04/23 12/05/23 History coQ10 (ubiquinol) 100 mg capsule 100 mg PO Q OTHER DAY 09/04/23 12/05/23 History (Qunol Quan CoQ10) dulaglutide 0.75 mg/0.5 mL 0.75 mg subcut Q10D 09/04/23 12/05/23 History subcutaneous pen injector (Trulicity) ferrous sulfate 142 mg (45 mg 142 mg PO QPM 09/04/23 12/05/23 History iron) tablet,extended release omega 3-vir-cjg-fish oil 1,000 mg 1 cap PO TID 09/04/23 12/05/23 History (120 mg-180 mg) capsule (Fish Oil) ondansetron HCl 4 mg tablet 4 mg PO Q8H PRN Nausea 09/04/23 12/05/23 History pantoprazole 20 mg tablet,delayed 20 mg PO DAILY 09/04/23 12/05/23 History release metformin 500 mg tablet,extended 500 mg PO QDD 12/05/23 12/05/23 History release 24 hr Past Med/Surg History Medical History (Updated 12/05/23 @ 19:37 by Rebeca Roberts PA-C) Gastroparesis Obesity Neuropathy of foot Arthritis of foot Left carpal tunnel syndrome GERD (gastroesophageal reflux disease) controlled Diabetes mellitus, type 2 NIDDM Anxiety controlled without meds Depression controlled without meds Migraine hx Hypertension Hyperlipidemia Sleep apnea CPAP (compliant) Syncope Three episodes in 2014. Cardiac workup included echo, event monitor and tilt- table test, all negative. Determined to be "swallow syncope," as episodes were preceded by patient ingesting hot liquid. Follows with [facility] ([facility] in [place], Dr. Cristiano Greenfield). 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 No episodes since 2015. S/P right ankle fusion at [facility] 11/2019 under [place] without issue* Pancreatitis ~2014 Schatzki's ring RLS (restless legs syndrome) Surgical History History of back surgery fusion 2020 History of tooth extraction with implants Hx of cataract extraction R/L History of ankle surgery Right ankle fusion (12/08/19): Grade view 2, MAC#3, ETT 7.5 at [facility] History of anesthesia reaction post-op "brain fog" for several weeks H/O breast biopsy L breast, metal marker remains H/O release of tendon right wrist History of open reduction and internal fixation (ORIF) procedure right wrist History of carpal tunnel release Right S/P Botox injection Bladder (for urinary incontinence) History of esophageal dilatation History of esophagogastroduodenoscopy (EGD) History of colonoscopy History of endoscopic sinus surgery History of adenoidectomy History of cardiac cath 2008 @ [facility] > no stents Hx of tonsillectomy H/O tubal ligation Family History Unknown Heart disease Lymphoma Father Hypertension Other No family history of adverse response to anesthesia Social History Smoking Status: Never smoker Second Hand Exposure: No; Do You Dip or Chew Tobacco: No; Hx Alcohol Use: Yes Alcohol type: beer, wine and hard liquor Hx Substance Use: Yes Substance Use Type Other:: has card Preferred Language: Kittitian Communication Ability: Effective Visual Impairment: No Limitations Denier Control Operator Required: No Beliefs That Will Affect Care: None Current Living Situation: Alone Feels Safe at Home: Yes Assistive Devices: CPAP and Walker Review of Systems Review of Systems: All systems reviewed & are unremarkable except as noted in HPI & below Constitutional: + fatigue; no fever and no chills Eyes: no diplopia and not seeing flashes Ear, Nose, Mouth, Throat: no nasal congestion, no nasal discharge and no sore throat Respiratory: no cough, no dyspnea and no wheezing Cardiovascular: as per Subjective / HPI; no syncope and no edema Gastrointestinal: + nausea; no vomiting and no change in b owel habits Genitourinary: no dysuria and no hematuria Musculoskeletal: + back pain (chronic) Integumentary: no rash and no yellowing of the skin Neurologic: no falls and no confusion Physical Exam Physical Exam: General: awake, alert, NAD HEENT: no scleral icterus, moist mucus membranes Neck: trachea midline Heart: RRR, no M/G/R; mild left chest tenderness on sternal border, under left breast Lungs: CTA bilaterally, no W/R/R Abdomen: soft, NT, +BS Extremities: distal pulses intact and equal, no significant edema Skin: no jaundice Neurologic: Ox3, moving all extremities, no focal deficits, no dysarthria or confusion Results & Data Results & Data Vital Signs (Past 12 Hours) Vital Signs Temp Pulse Pulse Resp BP BP Pulse Ox 12/05/23 18:13 76 12/05/23 17:36 75 18 144/75 H 98 12/05/23 14:30 36.9 C 79 20 136/80 95 O2 Del Method 12/05/23 18:13 12/05/23 17:36 Room Air 12/05/23 14:30 Room Air Laboratory Results Laboratory Results - last 24 hr 12/05/23 14:50 WBC 6.23 RBC 4.23 Hgb 13.6 Hct 39.8 MCV 94.1 MCH 32.2 MCHC 34.2 RDW Std Deviation 41.6 RDW Coeff of Nam 12.2 Plt Count 188 MPV 9.3 L Immature Gran % (Auto) 0.3 Neut % (Auto) 47.1 Lymph % (Auto) 34.5 [place] % (Auto) 15.2 Eos % (Auto) 2.4 Baso % (Auto) 0.5 Neut # (Auto) 2.93 Lymph # (Auto) 2.15 [place] # (Auto) 0.95 H Eos # (Auto) 0.15 Baso # (Auto) 0.03 Immature Gran # (Auto) 0.02 PT 11.2 INR 1.0 APTT 26 PTT Ratio 0.9 Sodium 136 Potassium 4.0 Chloride 102 Carbon Dioxide 26 Anion Gap 8 BUN 14 Creatinine 0.65 Est Cr Clr Drug Dosing Not Reportable Est GFR ( Amer) 99.3 Est GFR (Non-Af Amer) 85.6 BUN/Creatinine Ratio 21.5 H Glucose 87 Calcium 9.5 Total Bilirubin 0.9 AST 18 ALT 14 Alkaline Phosphatase 66 Troponin I High Sens 3.9 Total Protein 7.4 Albumin 4.4 Globulin 3.0 Albumin/Globulin Ratio 1.5 Diagnostic Findings Chest X-Ray 12/05/23 14:36 XR chest 1V not portable HISTORY: Chest pain, nonspecific COMPARISON: Chest 09/08/2021. FINDINGS: No pneumothorax. No pleural effusions. The cardiac silhouette remains mildly enlarged. No new focal lung consolidations to suggest a pneumonia. No evidence for pulmonary edema. Bibasilar interstitial thickening persists. Lumbar spinal fusion hardware is partially visualized. IMPRESSION: Cardiomegaly and chronic bibasilar interstitial thickening again noted. Otherwise, no acute process within the chest. ACT 112: Negative or not required by law. Electronically signed by: Monty Wilkinson M.D. 12/05/2023 3:16 PM Supervising Physician Co-Signing Physician Notes Patient seen and examined independently. Discussed with above provider. Patient comes in with exertional chest pain. Significant medical history of hypertension, type 2 diabetes mellitus. Strong family history of CAD EKG personally reviewed; normal sinus rhythm; no ST or T wave changes. Obtain echocardiogram, cardiology consultation N.p.o. from midnight for possible stress stress or left heart cath tomorrow. (1) Chest pain Chest pain type: unspecified Qualified Code(s): R07.9 - Chest pain, unspecified (2) Diabetes mellitus Diabetes mellitus complication detail: with unspecified neuropathy Diabetes mellitus complication status: with neurologic complications Diabetes mellitus mcfp insulin use: without mcfp use Diabetes mellitus type: type 2 Qualified Code(s): E11.40 - Type 2 diabetes mellitus with diabetic neuropathy, unspecified (3) HTN (hypertension) Hypertension type: primary hypertension Qualified Code(s): I10 - Essential (primary) hypertension
[2023-12-05] MEDS ORDERED: ACETAMINOPHEN 325 MG TAB PO PRN (19:38)
[2023-12-05] MEDS ORDERED: NITROGLYCERIN SL 0.4 MG/TAB TAB SL PRN (19:38)
[2023-12-05] MEDS ORDERED: valACYclovir HCL 500 MG TABLET PO SCH (20:00)
[2023-12-05] MEDS ORDERED: ONDANSETRON 4 MG OD TAB PO PRN (20:05)
[2023-12-05] MEDS: ASPIRIN 81 MG ECTAB PO SCH (21:11)
[2023-12-05] MEDS: ATORVASTATIN 10 MG TAB PO SCH (21:11)
[2023-12-05] MEDS: FERROUS SULFATE 325 MG TAB PO SCH (21:11)
--- OUTSIDE RECORDS SUMMARY | 2023-12-06 02:24 | External Medical Summary | Summary of Care ---
Author Name Unknown Organization [facility] Address [address] [place] [address] Phone [phone] Care Team Providers Care Speech Pathology Assistant Name Role Phone Rebecca Valera PA-C Primary Care Provider [phone] Reason for Visit * Reason Comments eRx-Medication Refill Encounter Details Date Type Department Care Team (Late st Contact Info) Description 11/07/2023 Refill Family Practice [facility] [place] [address] [facility] [place] [address] Rebecca Valera PA-C [address] [facility] [place] [id number] Type 2 diabetes mellitus with hemoglobin A1c goal of less than 7.0% ([facility]) Allergies Active Allergy Reactions Criticality Noted Date Comments Nickel High 10/12/2020 Dermatology issues Other reaction(s): Rash/bleeding Other reaction(s): Rash/bleeding Pollen 05/05/2020 Nasal congestion documented as of this encounter (statuses as of 11/07/2023) Medications Medication Sig Dispensed Refills Start Date End Date Status Framed Data SYSTEM W/DEVICE KITIndications:DM type 2, goal A1c below 7 Use up to four times a day as directed 1 Kit 0 014 Active FISH OIL 1000 MG PO CAPS Take 1 Capsule by mouth in the morning and 1 Capsule at noon and 1 Capsule before bedtime. 0 Active ICAPS AREDS FORMULA PO TABS Take by mouth daily. 0 Active Aspirin 81 MG Tablet Take 1 Tablet by mouth daily with dinner. 0 Active B Complex Vitamins (VITAMIN-B COMPLEX) Tablet Take 1 Tab by mouth daily. 0 Active Melatonin 10 MG Oral Capsule Take 1 Capsule by mouth at bedtime. 0 Active OnabotulinumtoxinA 100 UNIT Injection Solution ReconstitutedIndication s:injection into bladder- last was 04/2020 Inject into a large muscle as needed. Indications: injection into bladder- last was 04/2020 0 Active CPAP every night at bedtime. 0 Active Metoclopramide HCl 5 MG Oral Tablet (Reglan) Take 1 Tablet by mouth in the morning and 1 Tablet at noon and 1 Tablet before bedtime. 3 times a day 1/2 hr before meals . 0 Active Polyethylene Glycol 3350 17 GM/SCOOP Oral Powder Take 17 g by mouth in the morning. 0 Active Continuation of patient use of medical marijuana is approved 0 021 Active Meclizine HCl 25 MG Oral Tablet (Antivert) Take by mouth 1 Tablet as needed in the morning AND 1 Tablet as needed at noon AND 1 Tablet as needed in the evening for Nausea. 30 Tablet 0 022 Active Probiotic Gummies 30 MG Oral Tablet Chewable Take by mouth daily . 0 Active Biotin 1000 MCG Oral Tablet Chewable Take by mouth 2 times a day . 0 Active Slow Fe 142 (45 Fe) MG Oral Tablet Extended Release (Ferrous Sulfate ER) Take by mouth daily . 0 Active OneTouch Ultra In Vitro Strip (Glucose Blood)Indications:Type 2 diabetes mellitus with hemoglobin A1c goal of less than 7.0% ([facility]) USE 1 STRIP TO CHECK GLUCOSE ONCE DAILY 100 Strip 3 022 Active Pantoprazole Sodium 20 MG Oral Tablet Delayed Release (Protonix) Take 1 Tablet by mouth every evening. 0 023 Active Lisinopril 10 MG Oral Tablet (Prinivil) Take 1 tablet by mouth once daily 90 Tablet 3 023 Active CoQ10 100 MG Oral Capsule Take by mouth. 0 Active Gabapentin 300 MG Oral Capsule (Neurontin) Take 600 mg in the morning, 300 mg at noon, then 900 mg at night 540 Capsule 3 023 Active valACYclovir HCl 500 MG Oral Tablet (Valtrex)Indications:He rpes Take 1 tablet by mouth once daily 90 Tablet 2 023 Active metFORMIN HCl ER 500 MG Oral Tablet Extended Release 24 Hour (Glucophage XR)Indications:Type 2 diabetes mellitus with hemoglobin A1c goal of less than 7.0% (HCC) Take 1 Tablet by mouth daily with dinner. 90 Tablet 3 023 Active Atorvastatin Calcium 10 MG Oral Tablet (Lipitor)Indications:Pu re hypercholesterolemia Take 1 tablet by mouth once daily 90 Tablet 1 023 Active Ciprofloxacin HCl 500 MG Oral Tablet (Cipro) TAKE 1 TABLET BY MOUTH TWICE DAILY START THE DAY BEFORE PROCEDURE 0 023 Active Nitrofurantoin Monohyd Macro 100 MG Oral Capsule (Macrobid) TAKE 1 CAPSULE BY MOUTH EVERY 12 HOURS WITH A MEAL FOR 7 DAYS 0 023 Active Ondansetron 4 MG Oral Tablet Disintegrating (Zofran)Indications:Zack sea DISSOLVE 1 TABLET IN MOUTH EVERY 8 HOURS NEEDED FOR NAUSEA 30 Tablet 1 023 Active Trulicity 0.75 MG/0.5ML Subcutaneous Solution Pen-injector (Dulaglutide)Indication s:Type 2 diabetes mellitus with hemoglobin A1c goal of less than 7.0% (HCC) INJECT 0.75MG SUBCUTANEOUSLY ONCE A WEEK 12 mL 1 023 Active Trulicity 0.75 MG/0.5ML Subcutaneous Solution Pen-injector (Dulaglutide)Indication s:Type 2 diabetes mellitus with hemoglobin A1c goal of less than 7.0% (HCC) INJECT 1 SYRINGE SUBCUTANEOUSLY ONCE A WEEK 12 mL 0 023 2022 Discontinued documented as of this encounter (statuses as of 11/07/2023) Active Problems Problem Noted Date Diagnosed Date Cubital tunnel syndrome on left 10/21/2023 Medical marijuana use 03/18/2023 History of 2019 novel coronavirus disease (COVID -19) 09/17/2022 Small intestinal bacterial overgrowth (SIBO) Essential tremor 03/15/2022 Spinal stenosis of lumbar region 09/14/2021 Gastroparesis 02/28/2021 Arthritis of right ankle 09/23/2018 Overview: Selam aaron q3mths 2014 Perennial allergic rhinitis with seasonal variat ion 09/23/2018 HTN, goal below 140/90 01/30/2016 HALIMA (obstructive sleep apnea) 09/19/2010 Overview: CPAP set at 10cm of water 12/14/13 pressure changed to 14 cm of water pressure AHP DYSLIPIDEMIA, GOAL LDL BELOW 100 11/03/2009 Overview: Per Lipid Taxonomy. Type 2 diabetes mellitus wit h hemoglobin A1c goal of less than 7.0% 09/22/2009 Overview: Per Diabetes Taxonomy. ICD-10 update of inactive term History of esophageal stricture 09/21/2009 Overview: schatzki's ring, dilations done, Sees Dr Subramanian Restless leg syndrome documented as of this encounter (statuses as of 11/07/2023) Resolved Problems Problem Noted Date Diagnosed Date Resolved Date Abnormal EKG 05/12/2019 08/03/2019 Encounter for examination fo r normal comparison and control in clinical research program 02/24/2019 06/27/2020 Overview: DO NOT [facility] DETECT Study: Project # [id number], Porcelain Finisher: Dre Rouse, PhD. SUMMARY: Goal: Establish test characteristics (sensitivity, specificity, PPV, NPV) of a circulating tumor DNA (ctDNA)-based test for cancer. Hypothesis: Circulating tumor DNA (ctDNA) and elevated protein biomarkers (together, the marker panel) can be detected in asymptomatic individuals with early cancer. Specific Aim 1: Determine the prevalence of a positive marker panel test in a prospective clinical cohort of 10,000 asymptomatic women ages 65 to 75 years. Specific Aim 2: Determine the sensitivity, specificity, positive predictive value (PPV) and negative predictive value (NPV) of a marker panel test to identify histologically proven cancers that develop within 5-years of the marker panel evaluation. CONTACTS: During normal business hours, contact study staff at ; after hours Porcelain Finisher via the [facility] tub operator . Please contact study team before resolving/deleting from patients problem list. Study phone number: [phone]. Diagnosis changed due to Research Module. Go to Snapshot for study details. Encounter for examination fo r normal comparison and control in clinical research program 02/24/2019 07/26/2022 Overview: DO NOT DELETE [facility] DETECT Study: Project # [id number], Porcelain Finisher: Kaleb Flores, MS, MPH. SUMMARY: Goal: Establish test characteristics (sensitivity, specificity, PPV, NPV) of a circulating tumor DNA (ctDNA)-based test for cancer. - Hypothesis: Circulating tumor DNA (ctDNA) and elevated protein biomarkers (together, the marker panel) can be detected in asymptomatic individuals with early cancer. - Specific Aim 1: Determine the prevalence of a positive marker panel test in a prospective clinical cohort of 10,000 asymptomatic women ages 65 to 75 years. - Specific Aim 2: Determine the sensitivity, specificity, positive predictive value (PPV) and negative predictive value (NPV) of a marker panel test to identify histologically proven cancers that develop within 5-years of the marker panel evaluation. - CONTACTS: During normal business hours, contact study staff at ; after hours Porcelain Finisher via the [facility] hospital tub operator . - Please contact study team before resolving/deleting from patients problem list. Study phone number: [phone]. Diagnosis changed due to Research Module. Go to Snapshot for study details. Severe obesity (BMI 35.0-39. 9) with comorbidity 09/23/2018 10/01/2019 Body mass index (BMI) of 40. 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 Genital herpes 08/08/2010 03/31/2019 Overview: ICD-10 update of inactive term Vitamin D deficiency 08/08/2010 018 Obstructive sleep apnea 07/05/2010 1205/2010 Overview: ICD-10 update of inactive term HTN, GOAL BELOW 130/80 12/21/200907/17 Overview: Per HTN Taxonomy. Benign neoplasm of colon 04/11/2009 Overview: adenomatous polyps, f/u in 5 years Dyslipidemia, goal LDL below 160 11/03/2009 Overview: Per Lipid Taxonomy. Type 2 diabetes mellitus wit h hemoglobin A1c goal of less than 7.0% 09/22/2009 Overview: Per Diabetes Taxonomy. ICD-10 update of inactive term HTN, goal below 140/90 12/21 Overview: Per HTN Taxonomy. Major depressive disorder, recurrent episode 07/08/2017 Osteoporosis 05/11/2015 Esophageal reflux 09/23/2018 INFORMATION 09/23/2018 Overview: schatzki's ring, dilations done, Sees Dr Subramanian Disorder of bladder 07/10/20 Overview: overactive bladder ICD-10 update of inactive term Sleep apnea 09/19/2010 Overview: CPAP at 10, documented as of this encounter (statuses as of 11/07/2023) Immunizations Name Administration Dates Next Due COVID-19 mRNA, LNP-s, No Pre serve, 2-Dose Series (Moderna) 01/24/2021,12/21/2020 COVID-19 mRNA, LNP-s, No Pre serve, 2-Dose Series (Pfizer) 05/17/2022 COVID-19, mRNA, LNP-s, PF, B ooster, 100mcg/0.5mg (Moderna) 09/25/2021 Covid-19, Mrna, Lnp-s, Pf, B ivalent, 30 Mcg, IM, 12 yrs and above (Pfizer) 10/07/2023,11/22/2022 H1N1 2009 Influenza, IM 09/10/2013,12/12/2009 Hepatitis B, 20+ yrs 10/21/2023,05/27/2023,03/18 Pneumococcal Conjugate Vacc, 13 Valent (Prevnar) 08/15/2017,02/09/2016 Pneumococcal Polysaccharide PPV23 (Pneumovax) 09/02/2018,06/04/2014,12/17/2006 RSV Vac., Recomb, Adjuvant, PF,0.5 Ml (Arexvy) 09/06/2023 Seasonal Influenza Virus Vac cine, Unspecified Formulation 08/23/2022 Seasonal Influenza, PF, 6 M & above, IM , (FluLaval or Fluzone) 08/06/2019 Seasonal Influenza, Quadriva lent Hd (Fluzone Hd) 08/19/2023,09/11/2021 Seasonal Influenza, Quadriva lent Hd, 65+ Yrs 08/23/2022 Seasonal Influenza, Quadriva lent, No Preserve, IM 08/25/2015 Seasonal Influenza, Quadriva lent, No Preserve, Peds 07/17/2018 Seasonal Influenza, Split, I IV3, With Preserve, Inj 08/15/2017,08/17/2016,10/05/2014,09/10,08/05/2012,08/31/2011,08/23/2010 ,08/09/2009,09/23/2007,09/06/2006 Seasonal Influenza, Trivalen t, High Dose, No Preserve, IM 07/22/2020,08/06/2019 TDAP (age 10 and older)(Boostrix) 05/14/2019 TDAP (age 11 and older)(Adacel) 02/01/2009 Varicella Zoster Vaccine (Adult) 01/13/2013 Zoster Vaccine Recombinant (Shingrix) 11/05/2019 ,06/12/2019 documented as of this encounter Social History Tobacco Use Types Packs/Day Years Used Date Smoking Tobacco: Never Smokeless Tobacco: Never Alcohol Use Standard Drinks/Week Comments Not Currently 0 (1 standard drink = 0.6 oz pur e alcohol) very occasionally AUDIT-C Answer Date Recorded Frequency of Alcohol Consumption 2-3 times a wee k 05/05/2020 Average Number of Drinks 1 or 2 020 Frequency of Binge Drinking Not on file 04/25 PHQ-2 Answer Date Recorded PHQ Adult Total Score 5 05/08/2023 Hunger Vital Sign Answer Date Recorded Within the past 12 months, y ou worried that your food would run out before you got the money to buy more. Never true 05/08/20 23 Within the past 12 months, t he food you bought just didn't last and you didn't have money to get more. Never true 05/08/2023 Sex and Gender Information Value Date Recorded Sex Assigned at Female 03/31/2019 8:57 AM EDT Gender Identity Female 03/31/2019 8:57 AM EDT Sexual Orientation Straight 03/31/2019 8: 57 AM EDT Job Start Date Occupation Industry Not on file Not on file Not on file documented as of this encounter Miscellaneous Notes * Telephone Encounter - Celestine Moreno RPh - 11/07/2023 2:03 PM ESTSigned Prescriptions: Disp Refills Trulicity 0.75 MG/0.5ML Subcutaneous Solut*12 mL 1 Sig: INJECT 0.75MG SUBCUTANEOUSLY ONCE A WEEKAuthorizing Provider: REBECCA VALERA User: CELESTINE MORENO------ documented in this encounter Plan of Treatment Upcoming Encounters Date Type Department Care Team (Late st Contact Info) Description 12/20/2023 10:00 AM EST Nutrition Services Nutrition & Weight Management, [facility] [address] [place] [address] Yamel Perry RDN [address] [place] [address] 03/24/2024 10:00 AM EDT Office Visit Gastroenterology, [facility] [address] [place] [address] Lily Willams CRNP [address] [place] [address] 04/21/2024 9:00 AM EDT Office Visit Family Practice [facility] [address] [facility] [place] [address] Rebecca Valera PA-C [address] [facility] [place] [address] 05/12/2024 11:00 AM EDT Nurse Only Ancillary [facility] [address] [facility] [place] [address] Im, Nurse Annual Wellness [facility] [place] [address] [facility] [place] [address] 05/14/2024 10:00 AM EDT [facility] [place] [address] [place] [phone] Delia Kang CRNP [address] [place] [address] 09/25/2024 2:00 PM EDT Office Visit Neurology [facility] [address] [facility] [place] [address] Ely Castillo, DO [address], [place] [id number] Scheduled Procedures Name Priority Associated Diagnoses Date/Ti me COLONOSCOPY FLEXIBLE PROXIMAL DIAGNOSTIC Recall Colon cancer screening Health Maintenance Due Date Last Done Comments COVID-19 Vaccine ( season) 2023 10/07/2023, 11/22/2022, 05/17/2022, Additional history exists Albumin/Creatinine Ratio 03/13/20242 023, 03/12/2022, 09/23/2018, Additional history exists B-12 03/13/2024 03/13/2023, 12/04/2021, 09/13/2021, Additional history exists GFR 03/13/2024 03/13/2023, 11/27, 03/27/2022, Additional history exists Diabetic Foot Exam 03/18/2024 03/18/2023, 0 05/07/2022, 02/28/2021, Additional history exists HbA1c 04/17/2024 10/18/2023, 02/23, 09/14/2022, Additional history exists Depression Screening 05/08/2024 05/08/2023 Diabetic Eye Exam 09/17/2024 09/17/2023, , 09/11/2022, Additional history exists DXA Scan 04/18/2026 04/18/2021, 03/26, 01/23/2016, Additional history exists COLONOSCOPY-EVERY 5 YRS AGES 18-100 06/22/2027 06/22/2022, 06/22/2022, 01/22/2017, Additional history exists DTaP,Tdap,and Td Vaccines (3 - Td or Tdap) 05/14/2029 05/14/2019, 02/01/2009 Pneumococcal Vaccine: 65+ Years Completed 09/02/2018, 08/15/2017, 02/09/2016, Additional history exists Zoster Vaccines Completed 11/05/2019, 05/25, 01/13/2013 Influenza Vaccine (FLU shot) Completed , 08/23/2022, 08/23/2022, Additional history exists Hepatitis B Completed 10/21/2023, 01/2023, 03/18/2023 GARDASIL-HPV IMMUNIZATION SERIES Aged Out No longer eligible based on patient's age to complete this topic MENINGOCOCCAL (MENACTRA/MENVEO) Aged Out No longer eligible based on patient's age to complete this topic documented as of this encounter Medical Devices Implanted Type Area Educational Technician Device Identifier Shelf Expiration Date Model / Serial / Lot Envista Toric [id number] Se +19.5 Cyl 2.00 Implanted:Qty: 1 on 05/02/2021 by Azael Lopez MD at OR [facility] Left: Eye [employer] 06/24/2021 [id number] / [id number] / [id number] Envista Hydrophobic Acrylic Intraocular Lens Implanted:Qty: 1 on 05/16/2021 by Azael Lopez MD at OR [facility] Right: Eye [employer] 08/24/2022 [id number] / [id number] / [id number] documented as of this encounter Visit Diagnoses Diagnosis Type 2 diabetes mellitus with hemoglobin A1c goal of less than 7.0% (HCC) documented in this encounter Advance Directives Documents on File Type Date Recorded Patient Microbiology Teacher Expl anation Advance Directives and Carlin silva Will 03/01/2017 LIVING WILL Power of Strategic Alliances Manager 03/01/2017 POWER OF A TTORNEY Care Teams Speech Pathology Assistant Relationship Specialty Start Date End Date CruzFebruary Prachi, SHARDAC [address] [place] [address] PCP - General Physician Curtains And Draperies Salesperson 03/31/19 documented as of this encounter
--- OUTSIDE RECORDS SUMMARY | 2023-12-06 02:24 | External Medical Summary | Summary of Care ---
Author Name Unknown Organization [facility] Address [address] [place] [address] Phone [phone] Care Team Providers Care Hat Band Attacher Name Role Phone AnjaliRebecca recinos EMORY Primary Care Provider [phone] Reason for Visit * Reason Comments Outpatient Testing Encounter Details Date Type Department Care Team (Late st Contact Info) Description 11/20/2023 1:50 PM EST Laboratory Laboratory, [facility] [address] [place] [address] [facility] [address] [place] [address] Arrived Allergies Active Allergy Reactions Criticality Noted Date Comments Nickel High 10/12/2020 Dermatology issues Other reaction(s): Rash/bleeding Other reaction(s): Rash/bleeding Pollen 05/05/2020 Nasal congestion documented as of this encounter (statuses as of 11/20/2023) Medications Medication Sig Dispensed Refills Start Date End Date Status Prompt.ly SYSTEM W/DEVICE KITIndications:DM type 2, goal A1c below 7 Use up to four times a day as directed 1 Kit 0 12/29/19 14 Active FISH OIL 1000 MG PO CAPS [...] 0 Active OnabotulinumtoxinA 100 UNIT Injection Solution ReconstitutedIndications :injection into bladder- last was 04/2020 Inject into [...] use of medical marijuana is approved 0 09/06/20 21 Active Meclizine HCl 25 MG Oral Tablet (Antivert) Take by mouth 1 Tablet as needed in the morning AND 1 Tablet as needed at noon AND 1 Tablet as needed in the evening for Nausea. 30 Tablet 0 07/23/20 22 Active Probiotic Gummies 30 MG Oral Tablet [...] A1c goal of less than 7.0% (HCC) USE 1 STRIP TO CHECK GLUCOSE ONCE DAILY 100 Strip 3 11/16/20 22 Active Pantoprazole Sodium 20 MG Oral Tablet Delayed Release (Protonix) Take 1 Tablet by mouth every evening. 0 12/12/19 23 Active Lisinopril 10 MG Oral Tablet (Prinivil) Take 1 tablet by mouth once daily 90 Tablet 3 02/05/20 23 Active CoQ10 100 MG Oral Capsule Take by mouth. 0 Active Gabapentin 300 MG Oral Capsule (Neurontin) Take 600 mg in the morning, 300 mg at noon, then 900 mg at night 540 Capsule 3 05/10/20 23 Active valACYclovir HCl 500 MG Oral Tablet (Valtrex)Indications:Her pes Take 1 tablet by mouth once daily 90 Tablet 2 05/21/20 23 Active metFORMIN HCl ER 500 MG Oral Tablet Extended Release 24 Hour (Glucophage XR)Indications:Type 2 diabetes mellitus with hemoglobin A1c goal of less than 7.0% (HCC) Take 1 Tablet by mouth daily with dinner. 90 Tablet 3 06/15/20 23 Active Atorvastatin Calcium 10 MG Oral Tablet (Lipitor)Indications:Pur e hypercholesterolemia Take 1 tablet by mouth once daily 90 Tablet 1 08/07/20 23 Active Ciprofloxacin HCl 500 MG Oral Tablet (Cipro) TAKE 1 TABLET BY MOUTH TWICE DAILY START THE DAY BEFORE PROCEDURE 0 09/04/20 23 Active Nitrofurantoin Monohyd Macro 100 MG Oral Capsule (Macrobid) TAKE 1 CAPSULE BY MOUTH EVERY 12 HOURS WITH A MEAL FOR 7 DAYS 0 10/16/20 23 Active Ondansetron 4 MG Oral Tablet Disintegrating (Zofran)Indications:Naus ea DISSOLVE 1 TABLET IN MOUTH EVERY 8 HOURS NEEDED FOR NAUSEA 30 Tablet 1 11/04/20 23 Active Trulicity 0.75 MG/0.5ML Subcutaneous Solution Pen-injector (Dulaglutide)Indications :Type 2 diabetes mellitus with hemoglobin A1c goal of less than 7.0% (HCC) INJECT 0.75MG SUBCUTANEOUSLY ONCE A WEEK 12 mL 1 11/07/20 23 Active documented as of this encounter (statuses as of 11/20/2023) Active Problems Problem Noted Date Diagnosed Date Cubital tunnel syndrome on left 10/21/2023 Medical marijuana use 03/18/2023 History of 2019 novel coronavirus disease (COVID -19) 09/17/2022 Small intestinal bacterial overgrowth (SIBO) Essential tremor 03/15/2022 Spinal stenosis of lumbar region 09/14/2021 Gastroparesis 02/28/2021 Arthritis of right ankle 09/23/2018 Overview: Heriberto-st inj q3mths 2014 Perennial allergic rhinitis with seasonal [...] as of this encounter (statuses as of 11/20/2023) Resolved Problems Problem Noted Date Diagnosed Date Resolved Date Abnormal EKG 05/12/2019 08/03/2019 Encounter for examination fo r normal comparison and control in clinical research program 02/24/2019 06/27/2020 Overview: DO NOT DELETE [facility] DETECT Study: Project # [id number], Health Informatics Instructor: Dre Rouse, PhD. SUMMARY: Goal: Establish test [...] contact study staff at ; after hours Health Informatics Instructor via the [facility] alum plant operator . Please contact study team before resolving/deleting from patients problem list. Study phone number: [phone]. Diagnosis changed due to Research Module. Go to Snapshot for study details. Encounter for examination fo r normal comparison and control in clinical research program 02/24/2019 07/26/2022 Overview: DO NOT DELETE - [employer] DETECT Study: Project # [id number], Health Informatics Instructor: Kaleb Flores, MS, MPH. SUMMARY: Goal: Establish [...] contact study staff at ; after hours Health Informatics Instructor via the [facility] alum plant operator . - Please contact study team before resolving/deleting from patients problem list. Study phone number: [phone]. Diagnosis changed due to Research Module. Go [...] D deficiency 08/08/2010 018 Obstructive sleep apnea 07/05/201005/2010 Overview: ICD-10 update of inactive term HTN, [...] as of this encounter (statuses as of 11/20/2023) Immunizations Name Administration Dates Next Due COVID-19 [...] on file documented as of this encounter Plan of Treatment Upcoming Encounters Date Type Department Care Team (Late st Contact Info) Description 12/20/2023 10:00 AM EST Nutrition Services Nutrition & Weight Management, [facility] [address] [place] [address] Yamel Perry RDN [address] [place] [address] 03/24/2024 10:00 AM EDT Office Visit Gastroenterology, [facility] [address] [place] [address] Lily Willams CRNP [address] [place] [address] 04/21/2024 9:00 AM EDT Office Visit Family Practice [facility] [address] [place] [address] Rebecca Arroyo PA-C [address] [place] [address] 05/12/2024 11:00 AM EDT Nurse Only Ancillary [facility] [address] [place] [address] Im, Nurse Annual Wellness [facility] [address] [place] [address] 05/14/2024 10:00 AM EDT Office Visit Sleep Disorders Ctr [facility] [address] [place] [phone] Delia Kang CRNP [address] [place] [address] 09/25/2024 2:00 PM EDT Office Visit Neurology [facility] [address] [place] [address] Ely Castillo, DO [address] [place] [address] Scheduled Procedures Name Priority Associated Diagnoses Date/Ti me COLONOSCOPY FLEXIBLE PROXIMAL DIAGNOSTIC Recall Colon cancer screening Health Maintenance Due Date Last Done Comments COVID-19 Vaccine ( season) 2023 10/07/2023, 11/22/2022, 05/17/2022, Additional history exists Albumin/Creatinine Ratio 03/13/2024 023, 03/12/2022, 09/23/2018, Additional history exists B-12 [...] Additional history exists Hepatitis B Completed 10/21/2023, 07/0 01/2023, 03/18/2023 GARDASIL-HPV IMMUNIZATION SERIES Aged Out No longer eligible based on patient's age to complete this topic MENINGOCOCCAL (MENACTRA/MENVEO) Aged Out No longer eligible based on patient's age to complete this topic documented as of this encounter Medical Devices Implanted Type Area Tip Scourer Device Identifier Shelf Expiration Date Model / Serial / Lot Envista Toric [id number] Se +19.5 Cyl 2.00 Implanted:Qty: 1 on 05/02/2021 by Azael Lopez MD at OR [facility] Left: Eye [employer] LOM[employer] 06/24/2021 [id number] / [id number] / [id number] Envista Hydrophobic Acrylic Intraocular Lens Implanted:Qty: 1 on 05/16/2021 by Azael Lopez MD at OR [facility] Right: Eye [employer] LOMB 08/24/2022 [id number] / [id number] / [id number] documented as of this encounter Advance Directives Documents on File Type Date Recorded Patient Power Regulator Expl anation Advance Directives and Livin g Will 03/01/2017 LIVING WILL Power of Tower Erector Helper 03/01/2017 POWER OF A TTORNEY Care Teams Hat Band Attacher Relationship Specialty Start Date End Date Anjalifebruary EMORY Velarde [address] [place] [address] PCP - General Physician Architectural Representative 03/31/19 documented as of this encounter
--- OUTSIDE RECORDS SUMMARY | 2023-12-06 02:24 | External Medical Summary | Summary of Care ---
Author Name Unknown Organization [facility] Address [address] [facility] [place] [address] Phone [phone] Care Team Providers Care Immigration Patrol Inspector Name Role Phone Rebecca Arroyo PA-C Primary Care Provider [phone] Encounter Details Date Type Department Care Team (Late st Contact Info) Description 11/07/2023 Telephone Family Practice [facility] [address] [place] [address] Rebecca Arroyo PA-C [address] [place] [address] Allergies Active Allergy Reactions Criticality Noted Date Comments Nickel High 10/12/2020 Dermatology issues Other reaction(s): Rash/bleeding Other reaction(s): Rash/bleeding Pollen 05/05/2020 Nasal congestion documented as of this encounter (statuses as of 11/13/2023) Medications Medication Sig Dispensed Refills Start Date End Date Status [employer] SYSTEM W/DEVICE KITIndications:DM type 2, goal A1c [...] mouth once daily 90 Tablet 1 08/07/20 Active Ciprofloxacin HCl 500 MG Oral Tablet (Cipro) TAKE 1 TABLET BY MOUTH TWICE DAILY START THE DAY BEFORE PROCEDURE 0 09/04/20 Active Nitrofurantoin Monohyd Macro 100 MG Oral Capsule (Macrobid) TAKE 1 CAPSULE BY MOUTH EVERY 12 HOURS WITH A MEAL FOR 7 DAYS 0 10/16/20 Active Ondansetron 4 MG Oral Tablet Disintegrating (Zofran)Indications:Naus ea DISSOLVE 1 TABLET IN MOUTH EVERY 8 HOURS NEEDED FOR NAUSEA 30 Tablet 1 11/04/20 Active Trulicity 0.75 MG/0.5ML Subcutaneous Solution Pen-injector (Dulaglutide)Indications :Type 2 diabetes mellitus with hemoglobin A1c goal of less than 7.0% (HCC) INJECT 0.75MG SUBCUTANEOUSLY ONCE A WEEK 12 mL 1 11/07/20 Active documented as of this encounter (statuses as of 11/13/2023) Active Problems Problem Noted Date Diagnosed Date Cubital tunnel syndrome on left 10/21/2023 Medical marijuana use 03/18/2023 History of 2019 novel coronavirus disease (COVID -19) 09/17/2022 Small intestinal bacterial overgrowth (SIBO) Essential tremor 03/15/2022 Spinal stenosis of lumbar region 09/14/2021 Gastroparesis 02/28/2021 Arthritis of right ankle 09/23/2018 Overview: Selam aaron q3mths 2015 Perennial allergic rhinitis with seasonal variat ion [...] as of this encounter (statuses as of 11/13/2023) Resolved Problems Problem Noted Date Diagnosed Date Resolved Date Abnormal EKG 05/12/2019 08/03/2019 Encounter for examination fo r normal comparison and control in clinical research program 02/24/2019 06/27/2020 Overview: DO NOT DELETE [employer] DETECT Study: Project # [id number], Pharmacists: Dre Rouse, PhD. SUMMARY: Goal: Establish test [...] contact study staff at ; after hours Pharmacists via the [facility] hospital pump station operator . Please contact study team before resolving/deleting from patients problem list. Study phone number: [phone]. Diagnosis changed due to Research Module. Go to Snapshot for study details. Encounter for examination fo r normal comparison and control in clinical research program 02/24/2019 07/26/2022 Overview: DO NOT DELETE - [employer] DETECT Study: Project # [id number], Pharmacists: Kaleb Flores, MS, MPH. SUMMARY: Goal: Establish [...] contact study staff at ; after hours Pharmacists via the [facility] hospital pump station operator . - Please contact study team before resolving/deleting from patients problem list. Study phone number: [phone]. Diagnosis changed due to Research Module. Go [...] as of this encounter (statuses as of 11/13/2023) Immunizations Name Administration Dates Next Due COVID-19 [...] encounter Miscellaneous Notes * Telephone Encounter - Cheyenne Mancini LPN - 11/13/2023 4:18 PM EST I [facility]ed [facility] mamm[facility]. * Telephone Encounter - Rebecca Arroyo PA-C - 11/07/2023 8:42 PM EST Please fax to breast center. * Telephone Encounter - Audelia Wynn LPN - 11/07/2023 11:21 AM EST Pt states that she goes to the Breast care clinic at [facility] for all of her mammograms and always has. Is already scheduled for mammo to be done in December. Pt states that she has received multiple calls from [employer] to schedule, but she does not wish to do so. New order pended for outside Will need faxed to the Breast Clinic once signed documented in this encounter Plan of Treatment Upcoming Encounters Date Type Department Care Team (Late st Contact Info) Description 12/20/2023 10:00 AM EST Nutrition Services Nutrition & Weight Management, [facility] [address] [place] [address] Yamel Perry RDN [address] [place] [address] 03/24/2024 10:00 AM EDT Office Visit Gastroenterology, [facility] [address] [place] [address] Lily Willams CRNP [address] [place] [address] 04/21/2024 9:00 AM EDT Office Visit Family Practice [facility] [address] [facility] [address] [place] [address] Rebecca Arroyo PA-C [address] [facility] [place] [address] 05/12/2024 11:00 AM EDT Nurse Only Ancillary [facility] [address] [facility] [place] [address] Im, Nurse Annual Wellness [facility] [address] [facility] [place] [address] 05/14/2024 10:00 AM EDT Office Visit Sleep Disorders Ctr [facility] [place] [address] [place] [phone] Delia [facility] CRNP [address] [facility] [address] 09/25/2024 2:00 PM EDT Office Visit Neurology [facility] [address] [facility] [place] [address] Ely Castillo, DO [address] [place] [address] Scheduled Orders Name Type Priority Associated Diagnoses Orde r Schedule MAMMOGRAM SCREENING ALLIE BILATERAL Medical Imaging Routine Encounter for screening mammogram for breast cancer Expected: 11/07/2023, Expires: 12/08/2024 Scheduled Procedures Name Priority Associated Diagnoses Date/Ti me COLONOSCOPY FLEXIBLE PROXIMAL DIAGNOSTIC Recall Colon cancer screening Health Maintenance Due Date Last Done Comments COVID-19 Vaccine ( season) 2023 10/07/2023, 11/22/2022, 05/17/2022, Additional history exists Albumin/Creatinine Ratio 03/13/2024 023, 03/12/2022, 09/23/2018, Additional history exists B-12 03/13/2024 03/13/2023, 12/0 04/2021, 09/13/2021, Additional history exists GFR 03/13/2024 03/13/2023, [...] Additional history exists Hepatitis B Completed 10/21/2023, 0701/2023, 03/18/2023 GARDASIL-HPV IMMUNIZATION SERIES Aged Out No longer eligible based on patient's age to complete this topic MENINGOCOCCAL (MENACTRA/MENVEO) Aged Out No longer eligible based on patient's age to complete this topic documented as of this encounter Medical Devices Implanted Type Area Pedigree Tracer Device Identifier Shelf Expiration Date Model / Serial / Lot Keysha Blackman Mx60t Se +19.5 Cyl 2.00 Implanted:Qty: 1 on 05/02/2021 by Azael Lopez MD at OR [facility] Left: Eye [employer]CH [employer] LOMB 06/24/2021 [id number] / [id number] / [id number] [employer] Hydrophobic Acrylic Intraocular Lens Implanted:Qty: 1 on 05/16/2021 by Azael Lopez MD at OR [facility] Right: Eye BAUSCH [employer] LOMB 08/24/2022 [id number] / [id number] / [id number] documented as of this encounter Visit Diagnoses Diagnosis Encounter for screening mammogram for breast cancer- Primary documented in this encounter Advance Directives Documents on File Type Date Recorded Patient Nurse Ob Expl anation Advance Directives and Livin g Will 03/01/2017 LIVING WILL Power of Machine Brusher 03/01/2017 POWER OF A TTORNEY Care Teams Immigration Patrol Inspector Relationship Specialty Start Date End Date CruzFebruary EMORY Velarde [address] [place] [address] PCP - General Physician Avionics Technician 03/31/19 documented as of this encounter
--- OUTSIDE RECORDS SUMMARY | 2023-12-06 02:24 | External Medical Summary | Summary of Care ---
Author Name Unknown Organization [facility] Address [address] [place] [address] Phone [phone] Care Team Providers Care Plant Chief Name Role Phone AnjaliRebecca recinos Prachi CAT Primary Care Provider [phone] Reason for Visit * Reason Onset Date Comments Advice 11/19/2023 Encounter Details Date Type Department Care Team (Late st Contact Info) Description 11/19/2023 Telephone Gastroenterology, [facility] [address] [place] [address] Services, Scheduling [address] [place] [address] Advice Allergies Active Allergy Reactions Criticality Noted Date Comments Nickel High 10/12/2020 Dermatology issues Other reaction(s): Rash/bleeding Other reaction(s): Rash/bleeding Pollen 05/05/2020 Nasal congestion documented as of this encounter (statuses as of 11/20/2023) Medications Medication Sig Dispensed Refills Start Date End Date Status [employer] SYSTEM W/DEVICE KITIndications:DM type 2, goal A1c [...] Take by mouth daily . 0 Active OneJalousieruch Ultra In Vitro Strip (Glucose Blood)Indications:Type 2 [...] program 02/24/2019 06/27/2020 Overview: DO NOT DELETE [facility] DETECT Study: Project # [id number], Vinyl Welder And Fabricator: Dre Rouse, PhD. SUMMARY: Goal: Establish test [...] contact study staff at ; after hours Vinyl Welder And Fabricator via the [facility] hospital swing frame grinder operator . Please contact study team before resolving/deleting from patients problem list. Study phone number: [phone]. Diagnosis changed due to Research Module. Go to Snapshot for study details. Encounter for examination fo r normal comparison and control in clinical research program 02/24/2019 07/26/2022 Overview: DO NOT DELETE - [facility] DETECT Study: Project # [id number], Vinyl Welder And Fabricator: Kaleb Flores, MS, MPH. SUMMARY: Goal: Establish [...] contact study staff at ; after hours Vinyl Welder And Fabricator via the [facility] hospital swing frame grinder operator . - Please contact study team before resolving/deleting from patients problem list. Study phone number: [phone]. Diagnosis changed due to Research Module. Go [...] Sees Dr Subramanian Disorder of bladder 07/10/20 18 Overview: overactive bladder ICD-10 update of inactive [...] encounter Miscellaneous Notes * Telephone Encounter - Lucie Estes CRNP - 11/20/2023 12:37 PM EST I called and spoke w pt. She is feeling better today. But reports nausea x1 month. She denies feeling bloated or constipated. Discussed risks vs benefits of restarting antibx treatment for suspected SIBO. She had been on Macrobid and Cipro within last 2 months for UTI and pre-procedure. Advised that we obtain KUB (previously ordered by Lily) to r/o constipation and obstructive process. She would like to defer antibiotics now and will obtain KUB. She will keep us updated on her symptoms. Also has appt w [facility] on 12/11/23 BINDU Pandya * Telephone Encounter - Alice Olmedo RN - 11/19/2023 12:17 PM EST "I have been really sick for the past month. I'm having one of those days when I don't want to eat anything." Had a sip of tea and rice cereal. C/o some days that she feels well and some that she feels sick again. C/o "more sick days." My question is how do I now whether SIBO has returned. Says shewas dx-d in June 2022. "And that's what it feels like it is." Notified her that Lily is off, but I will forward her message. Encouraged clear liquid diet (or diet as tolerated). Told her we will let her know when we hear back from Lily. Pt verbalized understanding. * Telephone Encounter - Mague Koo OSA - 11/19/2023 11:11 AM EST Patient is having ongoing concerns and would like to speak with a nurse documented in this encounter Plan of Treatment Upcoming Encounters Date Type Department Care Team (Late st Contact Info) Description 12/20/2023 10:00 AM EST Nutrition Services Nutrition & Weight Management, [facility] [address] [place] [address] Yamel Perry RDN [address] [place] [address] 03/24/2024 10:00 AM EDT Office Visit Gastroenterology, [facility] [address] [place] [address] Lily Willams CRNP [address] [place] [address] 04/21/2024 9:00 AM EDT Office Visit Family Practice [facility] [address] [place] [address] Rebecca Arroyo PA-C [address] [place] [address] 05/12/2024 11:00 AM EDT Nurse Only Ancillary [facility] [address] [place] [address] Im, Nurse Annual Wellness [facility] [address] [place] [address] 05/14/2024 10:00 AM EDT Office Visit Sleep Disorders Ctr [facility] [address] [place] [phone] Delia Kang CRNP [address] [place] [address] 09/25/2024 2:00 PM EDT Office Visit Neurology [facility] [address] [place] [address] Ely Castillo, DO [address] [facility] [address] Scheduled Procedures Name Priority Associated Diagnoses Date/Ti me COLONOSCOPY FLEXIBLE PROXIMAL DIAGNOSTIC Recall Colon cancer screening Health Maintenance Due Date Last Done Comments COVID-19 Vaccine (2022- season) 2023 10/07/2023, 11/22/2022, 05/17/2022, Additional history [...] this encounter Medical Devices Implanted Type Area Head Men'S Tennis Coach Device Identifier Shelf Expiration Date Model / Serial / Lot Envista Toric Mx60t Se +19.5 Cyl 2.00 Implanted:Qty: 1 on 05/02/2021 by Azael Lopez MD at OR [facility] Left: Eye BAUSCH [employer] LOMB 06/24/2021 [id number] / [id number] / [id number] Envista Hydrophobic Acrylic Intraocular Lens Implanted:Qty: 1 on 05/16/2021 by Azael Lopez MD at OR [facility] Right: Eye BAUSCH [employer] LOMB 08/24/2022 [id number] / [id number] / [id number] documented as of this encounter Advance Directives Documents on File Type Date Recorded Patient Roll Wrapper Expl anation Advance Directives and Livin g Will 03/01/2017 LIVING WILL Power of Breakfast Server 03/01/2017 POWER OF A TTORNEY Care Teams Plant Chief Relationship Specialty Start Date End Date Anjalifebruary EMORY Velarde [address] [place] [address] PCP - General Physician Solar Energy Systems Designer 03/31/19 documented as of this encounter
--- OUTSIDE RECORDS SUMMARY | 2023-12-06 02:25 | External Medical Summary | Summary of Care ---
Author Name Unknown Organization [facility] Address [address] [facility] [place] [address] Phone [phone] Care Team Providers Care Inspector Insulation Name Role Phone Rebecca Arroyo PA-C Primary Care Provider [phone] Reason for Visit * Reason Onset Date Comments Advice 10/30/2023 Encounter Details Date Type Department Care Team (Late st Contact Info) Description 10/30/2023 Telephone Family Practice [facility] [address] [facility] [place] [address] Rebecca Arroyo PA-C [address] [facility] [place] [id number] Advice Allergies Active Allergy Reactions Criticality Noted Date Comments Nickel High 10/12/2020 Dermatology issues Other reaction(s): Rash/bleeding Other reaction(s): Rash/bleeding Pollen 05/05/2020 Nasal congestion documented as of this encounter (statuses as of 11/07/2023) Medications Medication Sig Dispensed Refills Start Date End Date Status [employer] SYSTEM W/DEVICE KITIndications:DM type 2, goal A1c [...] once daily 90 Tablet 1 023 Active Trulicity 0.75 MG/0.5ML Subcutaneous Solution Pen-injector (Dulaglutide)Indication s:Type 2 diabetes mellitus with hemoglobin A1c goal of less than 7.0% (HCC) INJECT 1 SYRINGE SUBCUTANEOUSLY ONCE A WEEK 12 mL 0 023 Active Ciprofloxacin HCl 500 MG Oral Tablet (Cipro) TAKE 1 TABLET BY MOUTH TWICE DAILY START THE DAY BEFORE PROCEDURE 0 023 Active Nitrofurantoin Monohyd Macro 100 MG Oral Capsule (Macrobid) TAKE 1 CAPSULE BY MOUTH EVERY 12 HOURS WITH A MEAL FOR 7 DAYS 0 023 Active Ondansetron 4 MG Oral Tablet DisintegratingIndicatio ns:Nausea Place on tongue 1 Tablet every 8 hours as needed for Nausea. dissolve on tongue. 30 Tablet 1 022 2022 Discontinued documented as of this encounter (statuses as of 11/07/2023) Active Problems Problem Noted Date Diagnosed Date Cubital tunnel syndrome on left 10/21/2023 Medical marijuana use 03/18/2023 History of 2019 novel coronavirus disease (COVID -19) 09/17/2022 Small intestinal bacterial overgrowth (SIBO) Essential tremor 03/15/2022 Spinal stenosis of lumbar region 09/14/2021 Gastroparesis 02/28/2021 Arthritis of right ankle 09/23/2018 Overview: DrMartin-st inj q3mths 2014 Perennial allergic rhinitis with [...] program 02/24/2019 06/27/2020 Overview: DO NOT DELETE [facility] DETECT Study: Project # [id number], Warehouse Engineer: Dre Rouse, PhD. SUMMARY: Goal: Establish test [...] contact study staff at ; after hours Warehouse Engineer via the [facility] hospital chalk machine operator . Please contact study team before resolving/deleting from patients problem list. Study phone number: [phone]. Diagnosis changed due to Research Module. Go to Snapshot for study details. Encounter for examination fo r normal comparison and control in clinical research program 02/24/2019 07/26/2022 Overview: DO NOT DELETE - [place] DETECT Study: Project # [id number], Warehouse Engineer: Kaleb Flores, MS, MPH. SUMMARY: Goal: Establish [...] contact study staff at ; after hours Warehouse Engineer via the [facility] hospital chalk machine operator . - Please contact study team before resolving/deleting from patients problem list. Study phone number: [phone]. Diagnosis changed due to Research Module. Go [...] encounter Miscellaneous Notes * Telephone Encounter - Audelia Wynn LPN - 11/07/2023 11:16 AM EST Called and spoke with pt. Pt states that she is feeling better. Is back to taking her medications. * Telephone Encounter - Duncan Collins DO - 11/01/2023 4:51 PM EST Can just restart taking medications as she was before * Telephone Encounter - Audelia Wynn LPN - 10/30/2023 12:53 PM EST See other TE from today for more info * Telephone Encounter - Debi Sarmiento OSA - 10/30/2023 12:17 PM EST Patient called said she was advised by her GI doctor to call and ask if it was ok for her to start taking her medication again as she has not been able to take anything in 3 days. Patient also said she having some back pain and unable to have bowl movements. Tried to schedule and acute appt and none available . documented in this encounter Plan of Treatment Upcoming Encounters Date Type Department Care Team (Late st Contact Info) Description 12/20/2023 10:00 AM EST Nutrition Services Nutrition & Weight Management, [facility] [address] [place] [address] Yamel Perry RDN [address] [place] [address] 03/24/2024 10:00 AM EDT Office Visit Gastroenterology, [facility] [address] [place] [address] Lily Willams CRNP [address] [facility] [place] [address] 04/21/2024 9:00 AM EDT Office Visit Family Practice [facility] [address] [facility] [place] [address] Rebecca Arroyo PA-C [address] [facility] [place] [address] 05/12/2024 11:00 AM EDT Nurse Only Ancillary [facility] [address] [facility] [place] [address] Im, Nurse Annual Wellness [facility] [address] [facility] [place] [address] 05/14/2024 10:00 AM EDT Office Visit Sleep Disorders Ctr [facility] [address] [facility] [place] [phone] Delia Kang CRNP 132 [facility] [place] [address] 09/25/2024 2:00 PM EDT Office Visit Neurology [facility] [address] [facility] [place] [address] Ely Castillo, DO [address] [place] [address] Scheduled Procedures Name Priority Associated Diagnoses Date/Ti [...] Additional history exists Hepatitis B Completed 10/21/2023, 07/01/2023, 03/18/2023 GARDASIL-HPV IMMUNIZATION SERIES Aged Out No longer eligible based on patient's age to complete this topic MENINGOCOCCAL (MENACTRA/MENVEO) Aged Out No longer eligible based on patient's age to complete this topic documented as of this encounter Medical Devices Implanted Type Area City Route Driver Device Identifier Shelf Expiration Date Model / Serial / Lot Keysha Blackman Mx60t Se +19.5 Cyl 2.00 Implanted:Qty: 1 on 05/02/2021 by Azael Lopez MD at OR [facility] Left: Eye [employer] LOM[employer] 06/24/2021 [id number] / [id number] / [id number] [employer]ista Hydrophobic Acrylic Intraocular Lens Implanted:Qty: 1 on 05/16/2021 by Azael Lopez MD at OR [facility] Right: Eye [employer] LOMB 08/24/2022 [id number] / [id number] / [id number] documented as of this encounter Advance Directives Documents on File Type Date Recorded Patient Space Operations Officer Expl anation Advance Directives and Livin g Will 03/01/2017 LIVING WILL Power of Traveling Buyer 03/01/2017 POWER OF A TTORNEY Care Teams Inspector Insulation Relationship Specialty Start Date End Date CruzFebruary EMORY Velarde [address] [place] [address] [place] [address] PCP - General Physician Vocational Rehabilitation Teacher 03/31/19 documented as of this encounter
--- OUTSIDE RECORDS SUMMARY | 2023-12-06 02:25 | External Medical Summary | Summary of Care ---
Author Name Unknown Organization [facility] Address [address] [facility] [place] [address] Phone [phone] Care Team Providers Care Photo Lab Manager Name Role Phone Rebecca Arroyo EMORY Primary Care Provider [phone] Encounter Details Date Type Department Care Team (Late st Contact Info) Description 10/30/2023 Telephone Gastroenterology, [facility] [address] [place] [address] Justo Willams CRNP [address] [place] [address] Allergies Active Allergy Reactions Criticality Noted Date Comments Nickel High 10/12/2020 Dermatology issues Other reaction(s): Rash/bleeding Other reaction(s): Rash/bleeding Pollen 05/05/2020 Nasal congestion documented as of this encounter (statuses as of 10/30/2023) Medications Medication Sig Dispensed Refills Start Date End Date Status [employer] SYSTEM W/DEVICE KITIndications:DM type 2, goal A1c [...] marijuana is approved 0 09/06/20 21 Active Ondansetron 4 MG Oral Tablet DisintegratingIndication s:Nausea Place on tongue 1 Tablet every 8 hours as needed for Nausea. dissolve on tongue. 30 Tablet 1 06/06/20 22 Active Meclizine HCl 25 MG Oral Tablet [...] hemoglobin A1c goal of less than 7.0% ([facility]) USE 1 STRIP TO CHECK GLUCOSE ONCE [...] daily with dinner. 90 Tablet 3 06/15/20 Active Atorvastatin Calcium 10 MG Oral Tablet (Lipitor)Indications:Pur e hypercholesterolemia Take 1 tablet by mouth once daily 90 Tablet 1 08/07/20 Active Trulicity 0.75 MG/0.5ML Subcutaneous Solution Pen-injector (Dulaglutide)Indications :Type 2 diabetes mellitus with hemoglobin A1c goal of less than 7.0% (HCC) INJECT 1 SYRINGE SUBCUTANEOUSLY ONCE A WEEK 12 mL 0 08/16/20 Active Ciprofloxacin HCl 500 MG Oral Tablet (Cipro) TAKE 1 TABLET BY MOUTH TWICE DAILY START THE DAY BEFORE PROCEDURE 0 09/04/20 Active Nitrofurantoin Monohyd Macro 100 MG Oral Capsule (Macrobid) TAKE 1 CAPSULE BY MOUTH EVERY 12 HOURS WITH A MEAL FOR 7 DAYS 0 10/16/20 Active documented as of this encounter (statuses as of 10/30/2023) Active Problems Problem Noted Date Diagnosed Date [...] as of this encounter (statuses as of 10/30/2023) Resolved Problems Problem Noted Date Diagnosed Date Resolved Date Abnormal EKG 05/12/2019 08/03/2019 Encounter for examination fo r normal comparison and control in clinical research program 02/24/2019 06/27/2020 Overview: DO NOT DELETE [employer] DETECT Study: Project # [id number], Bridge Expert: Dre Rouse, PhD. SUMMARY: Goal: Establish test [...] contact study staff at ; after hours Bridge Expert via the [facility] hospital yarn texturing machine operator . Please contact study team before resolving/deleting from patients problem list. Study phone number: [phone]. Diagnosis changed due to Research Module. Go to Snapshot for study details. Encounter for examination fo r normal comparison and control in clinical research program 02/24/2019 07/26/2022 Overview: DO NOT DELETE - [employer] DETECT Study: Project # [id number], Bridge Expert: Kaleb Flores, MS, MPH. SUMMARY: Goal: Establish [...] contact study staff at ; after hours Bridge Expert via the [facility] hospital yarn texturing machine operator . - Please contact study team before resolving/deleting from patients problem list. Study phone number: [phone]. Diagnosis changed due to Research Module. Go [...] as of this encounter (statuses as of 10/30/2023) Immunizations Name Administration Dates Next Due COVID-19 [...] (Prevnar) 08/15/2017,02/09/2016 Pneumococcal Polysaccharide PPV23 (Pneumovax) 09/02/2018,06/04/2014,12/17/2006 Rsv Vac., Recomb, Adjuvant, Pf,0.5 Ml (Arexvy) 09/06/2023 SEASONAL INFLUENZA, PF, 6 M & Above, IM , (FLULAVAL or FLUZONE) 08/06/2019 Seasonal Influenza Virus Vac cine, Unspecified Formulation 08/23/2022 Seasonal Influenza, Quadriva lent Hd (Fluzone Hd) [...] encounter Miscellaneous Notes * Telephone Encounter - Shannon Lopez RN - 10/30/2023 12:05 PM EST I called and relayed all of this to the patient. She verbalizes understanding. She is aware the KUBorder is already in place if nausea and constipation does not improve. She is also aware to call usback and check in if symptoms do not improve as well. * Telephone Encounter - Justo Willams CRNP - 10/30/2023 11:49 AM EST Noted If she has not been taking any of her medications, she should talk to her PCP about how to restart these medications etc Regarding her GI symptoms, she is followed with our group for gastroparesis, SIBO, IBS but also estbalished with [facility] Regarding her nausea and constipation I recommend - restarting her Pantoprazole - restarting her Zofran as needed - restarting miralax 1 capful once daily for constipation - Clear liquid diet today then gastroparesis diet as tolerated - Reglan is on hold due to recent diagnosis of essential tremor She can have a KUB if her nausea/constipation do not improve Should see PCP for her back pain BINDU Macedo 10/30/2023 11:51 AM * Telephone Encounter - Shannon Lopez RN - 10/30/2023 11:12 AM EST Pt calling in . Reports she has only able to eat small amount of foods since Saturday. Reports she has no energy. Reports she does not feel dizzy just sitting there. Reports she has not been taking hermedications . Reports she has not been vomiting. Just feels like she can't eat. Does not have a fever or chills. Does feel cold. Reports she isnt sure if she is passing gas or not. She is not sure when her last bowel movement was but thinks It may have been a few days ago. Reports she is having back pain that is different than her normal back pain. Reports this is 3 out of 10. Denies any sick contacts. I advised her if she felt like she could she could eat and drink small meals. She does have zofran at home and was going to try to take one before eating and drinking. I also advised her if he has not been taking any of her regular meds she may also want to check in with her PCP. Reports she can not take reglan due to tremors in the past. Does feel like her nausea is relayed to her gastroparesis. Reports she could not get an soon appt with justo or she was going to make an appt. Aware togo to the ER if she feels lightheaded or dizziness, unable to keep food down for 24 hours, is not passing gas and not having Bms, or severe pain. Please advise documented in this encounter Plan of Treatment Upcoming Encounters Date Type Department Care Team (Late st Contact Info) Description 12/20/2023 10:00 AM EST Nutrition Services Nutrition & Weight Management, [facility] [address] [address] [address] Yamel Perry RDN [address] [place] [address] 03/24/2024 10:00 AM EDT Office Visit Gastroenterology, [facility] [address] [place] [address] Justo Willams CRNP [address] [place] [address] 04/21/2024 9:00 AM EDT Office Visit [facility] [address] [place] [address] Rebecca Arroyo PA-C [address] [facility] [place] [address] 05/12/2024 11:00 AM EDT Nurse Only Ancillary [facility] [address] [place] [address] Im, Nurse Annual Wellness [facility] [address] [place] [address] 05/14/2024 10:00 AM EDT Office Visit Sleep Disorders Ctr [facility] [place] [address] [place] [phone] Delia Kang CRNP [address] [place] [address] 09/25/2024 2:00 PM EDT Office Visit Neurology [facility] [address] [place] [address] Ely Castillo, DO [address] [place], [place] [id number] Scheduled Orders Name Type Priority Associated Diagnoses Orde r Schedule XR ABDOMEN 1 VIEW Medical Imaging Routine Nausea Constipation, unspecified constipation type Ordered: 10/30/2023 Scheduled Procedures Name Priority Associated Diagnoses Date/Ti [...] this encounter Medical Devices Implanted Type Area Ethanol Maintenance Mechanic Device Identifier Shelf Expiration Date Model / Serial / Lot [employer]ic Mx60t Se +19.5 Cyl 2.00 Implanted:Qty: 1 on 05/02/2021 by Azael Lopez MD at OR [facility] Left: Eye BAUSCH [employer] LOMB 06/24/2021 [id number] / [id number] / [id number] [employer] Hydrophobic Acrylic Intraocular Lens Implanted:Qty: 1 on 05/16/2021 by Azael Lopez MD at OR [facility] Right: Eye BAUSCH [employer] LOMB 08/24/2022 [id number] / [id number] / [id number] documented as of this encounter Visit Diagnoses Diagnosis Nausea- Primary Nausea alone Constipation, unspecified constipation type documented in this encounter Advance Directives Documents on File Type Date Recorded Patient Line Walker Expl anation Advance Directives and Livin g Will 03/01/2017 LIVING WILL Power of Patient Assessment Coordinator 03/01/2017 POWER OF A TTORNEY Care Teams Photo Lab Manager Relationship Specialty Start Date End Date CruzFebruary EMORY Velarde [address] [place] [address] PCP - General Physician Preconstruction Manager 03/31/19 documented as of this encounter
--- OUTSIDE RECORDS SUMMARY | 2023-12-06 02:25 | External Medical Summary | Summary of Care ---
Author Name Unknown Organization [facility] Address [address] [place] [place] [address] Phone [phone] Care Team Providers Care Board Liner Operator Name Role Phone Rebecca Arroyo EMORY Primary Care Provider [phone] Reason for Visit * Reason Comments eRx-Medication Refill Encounter Details Date Type Department Care Team (Late st Contact Info) Description 11/04/2023 Refill Gastroenterology, [facility] [address] [place] [address] Lily Willams CRNP [address] [place] [address] Nausea Allergies Active Allergy Reactions Criticality Noted Date Comments Nickel High 10/12/2020 Dermatology issues Other reaction(s): Rash/bleeding Other reaction(s): Rash/bleeding Pollen 05/05/2020 Nasal congestion documented as of this encounter (statuses as of 11/04/2023) Medications Medication Sig Dispensed Refills Start Date End Date Status [employer] SYSTEM W/DEVICE KITIndications:DM type 2, goal A1c [...] hemoglobin A1c goal of less than 7.0% ([facility]) USE 1 STRIP TO CHECK GLUCOSE [...] FOR NAUSEA 30 Tablet 1 023 Active Ondansetron 4 MG Oral Tablet DisintegratingIndicatio ns:Nausea Place on tongue 1 Tablet every 8 hours as needed for Nausea. dissolve on tongue. 30 Tablet 1 022 2022 Discontinued documented as of this encounter (statuses as of 11/04/2023) Active Problems Problem Noted Date Diagnosed Date Cubital tunnel syndrome on left 10/21/2023 Medical marijuana use 03/18/2023 History of 2019 novel coronavirus disease (COVID -19) 09/17/2022 Small intestinal bacterial overgrowth (SIBO) Essential tremor 03/15/2022 Spinal stenosis of lumbar region 09/14/2021 Gastroparesis 02/28/2021 Arthritis of right ankle 09/23/2018 Overview: Heriberto-st inj q3mths 2015 Perennial allergic rhinitis with seasonal [...] as of this encounter (statuses as of 11/04/2023) Resolved Problems Problem Noted Date Diagnosed Date Resolved Date Abnormal EKG 05/12/2019 08/03/2019 Encounter for examination fo r normal comparison and control in clinical research program 02/24/2019 06/27/2020 Overview: DO NOT DELETE [facility] DETECT Study: Project # [id number], Motor Tester: Dre Rouse, PhD. SUMMARY: Goal: Establish test [...] contact study staff at ; after hours Motor Tester via the [facility] hospital roll line operator . Please contact study team before resolving/deleting from patients problem list. Study phone number: [phone]. Diagnosis changed due to Research Module. Go to Snapshot for study details. Encounter for examination fo r normal comparison and control in clinical research program 02/24/2019 07/26/2022 Overview: DO NOT DELETE - [facility] DETECT Study: Project # [id number], Motor Tester: Kaleb Flores, MS, MPH. SUMMARY: Goal: Establish [...] contact study staff at ; after hours Motor Tester via the [facility] hospital roll line operator . - Please contact study team before resolving/deleting from patients problem list. Study phone number: [phone]. Diagnosis changed due to Research Module. Go [...] as of this encounter (statuses as of 11/04/2023) Immunizations Name Administration Dates Next Due COVID-19 mRNA, LNP-s, No Pre serve, 2-Dose Series (Moderna) 01/24/2021,12/21/2020 COVID-19 mRNA, LNP-s, No Pre serve, 2-Dose Series (3dim) 05/17/2022 COVID-19, mRNA, LNP-s, PF, B ooster, [...] Telephone Encounter - Celestine Moreno RPh - 11/04/2023 3:47 PM ESTSigned Prescriptions: Disp Refills Ondansetron 4 MG Oral Tablet Disintegratin*30 Tab*1 Sig: DISSOLVE 1 TABLET IN MOUTH EVERY 8 HOURS NEEDED FOR NAUSEAAuthorizing Provider: LILY WILLAMS User: CELESTINE MORENO documented in this encounter Plan of Treatment Upcoming Encounters Date Type Department Care Team (Late st Contact Info) Description 12/20/2023 10:00 AM EST Nutrition Services Nutrition & Weight Management, [facility] [address] [address] Yamel Perry RDN [address] [place] [address] 03/24/2024 10:00 AM EDT Office Visit Gastroenterology, [facility] [address] [address] Lily Willams CRNP [address] [address] 04/21/2024 9:00 AM EDT Office Visit Family [facility] [address] [place] [address] Rebecca Arroyo PA-C [address] [facility] [place] [address] 05/12/2024 11:00 AM EDT Nurse Only Ancillary [facility] [address] [place] [address] Im, Nurse Annual Well[facility] [address] [place] [address] 05/14/2024 10:00 AM EDT Office Visit Sleep Disorders Ctr [facility] [address] [place] [phone] Delia Kang CRNP [address] [place] [address] 09/25/2024 2:00 PM EDT Office Visit Neurology [facility] [address] [facility] [place] [address] Ely Castillo, DO [address] [place] [address] Scheduled Procedures Name Priority Associated Diagnoses Date/Ti [...] this encounter Medical Devices Implanted Type Area Shake Feeder Device Identifier Shelf Expiration Date Model / Serial / Lot [employer]ic Mx60t Se +19.5 Cyl 2.00 Implanted:Qty: 1 on 05/02/2021 by Azael Lopez MD at OR [facility] Left: Eye [employer] LOM[employer] 06/24/2021 [id number] / [id number] / [id number] [employer] Hydrophobic Acrylic Intraocular Lens Implanted:Qty: 1 on 05/16/2021 by Azael Lopez MD at OR [facility] Right: Eye [employer]CH [employer] LOMB 08/24/2022 [id number] / [id number] / [id number] documented as of this encounter Visit Diagnoses Diagnosis Nausea Nausea alone documented in this encounter Advance Directives Documents on File Type Date Recorded Patient Final Operations Technician Expl anation Advance Directives and Livin g Will 03/01/2017 LIVING WILL Power of Experience Specialist 03/01/2017 POWER OF A TTORNEY Care Teams Board Liner Operator Relationship Specialty Start Date End Date CruzFebruary Prachi, EMORY [address] [place] [address] PCP - General Physician Silica Spray Mixer 03/31/19 documented as of this encounter
--- OUTSIDE RECORDS SUMMARY | 2023-12-06 02:25 | External Medical Summary | Summary of Care ---
Author Name Unknown Organization [facility] Address [address] [facility] [place] [address] Phone [phone] Care Team Providers Care Fbi Profiler Name Role Phone Rebecca Arroyo PA-C Primary Care Provider [phone] Reason for Visit * Reason Comments Follow Up Encounter Details Date Type Department Care Team (Late st Contact Info) Description 10/21/2023 11:00 AM EST Office Visit Family [facility] [place] [address] [facility] [place] [address] Rebecca Arroyo PA-C [address] [facility] [place] [id number] Type 2 diabetes mellitus with hemoglobin A1c goal of less than 7.0% (HCC)*; HALIMA (obstructive sleep apnea); Need for hepatitis B vaccination; HTN, goal below 140/90; Encounter for screening mammogram for breast cancer Allergies Active Allergy Reactions Criticality Noted Date Comments Nickel High 10/12/2020 Dermatology issues Other reaction(s): Rash/bleeding Other reaction(s): Rash/bleeding Pollen 05/05/2020 Nasal congestion documented as of this encounter (statuses as of 10/21/2023) Medications Medication Sig Dispensed Refills Start Date End Date Status [facility] SYSTEM W/DEVICE KITIndications:DM type 2, goal A1c [...] hemoglobin A1c goal of less than 7.0% ([facility]) USE 1 STRIP TO CHECK [...] daily 90 Tablet 1 08/07/20 23 Active Trulicity 0.75 MG/0.5ML Subcutaneous Solution Pen-injector (Dulaglutide)Indications :Type 2 diabetes mellitus with hemoglobin A1c goal of less than 7.0% (HCC) INJECT 1 SYRINGE SUBCUTANEOUSLY ONCE A WEEK 12 mL 0 08/16/20 23 Active Ciprofloxacin HCl 500 MG Oral Tablet (Cipro) TAKE 1 TABLET BY MOUTH TWICE DAILY START THE DAY BEFORE PROCEDURE 0 09/04/20 Active Nitrofurantoin Monohyd Macro 100 MG Oral Capsule (Macrobid) TAKE 1 CAPSULE BY MOUTH EVERY 12 HOURS WITH A MEAL FOR 7 DAYS 0 10/16/20 23 Active documented as of this encounter (statuses as of 10/21/2023) Active Problems Problem Noted Date Diagnosed Date [...] as of this encounter (statuses as of 10/21/2023) Resolved Problems Problem Noted Date Diagnosed Date Resolved Date Abnormal EKG 05/12/2019 08/03/2019 Encounter for examination fo r normal comparison and control in clinical research program 02/24/2019 06/27/2020 Overview: DO NOT DELETE Yo [facility] DETECT Study: Project # [id number], Board Attendant: Dre Rouse, PhD. SUMMARY: Goal: Establish test [...] contact study staff at ; after hours Board Attendant via the [facility] hospital back strip machine operator . Please contact study team before resolving/deleting from patients problem list. Study phone number: [phone]. Diagnosis changed due to Research Module. Go to Snapshot for study details. Encounter for examination fo r normal comparison and control in clinical research program 02/24/2019 07/26/2022 Overview: DO NOT DELETE - [employer] DETECT Study: Project # [id number], Board Attendant: Kaleb Flores, MS, MPH. SUMMARY: Goal: Establish [...] contact study staff at ; after hours Board Attendant via the [facility] hospital back strip machine operator . - Please contact study team before resolving/deleting from patients problem list. Study phone number: [phone]. Diagnosis changed due to Research Module. Go [...] as of this encounter (statuses as of 10/21/2023) Immunizations Name Administration Dates Next Due COVID-19 [...] on file documented as of this encounter Last Filed Vital Signs Vital Sign Reading Time Taken Comments Blood Pressure 120/68 10/21/2023 11:08 AM EST Pulse 77 10/21/2023 11:08 AM EST Temperature 36.6 C (97.8 F) 10/21/2023 11:[address] Respiratory Rate 16 10/21/2023 11:08 AM EST Oxygen Saturation 97% 10/21/2023 11:08 AM EST Inhaled Oxygen Concentration - - Weight 77.1 kg (170 lb 0.6 oz) 10/21/2023 11:08 AM EST Height 154.9 cm (5' 1") 10/21/2023 11:08 AM EST Body Mass Index 32.13 10/21/2023 11:08 AM EST documented in this encounter Progress Notes * Rebecca Arroyo PA-C - 10/21/2023 11:37 AM EST Images from the original note were not included. History of Present Illness Estiven Burr is a 78 year old female that presents for Follow Up Patient is a 78 year old female who presents for a follow up. Continues to have wonderful control of her blood sugars. Problems with neuropathy in both her feet. Has had back surgery. Diagnosed with cubital tunnel syndrome. 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 Skin check; no concerns. Mammogram order Questions about labs. Denies chest pain, sob, palpitations,edema, dizzy Some headaches Appetite diminished Sleep good Urination/ bowel movements good Physical Exam Vitals: 10/21/23 1108 Temp: 36.6 C (97.8 F) Pulse: 77 Resp: 16 SpO2: 97% BP: 120/68 BMI: 32.15 BP Readings from Last 3 Encounters: 10/21/23 120/68 09/30/23 138/82 09/27/23 118/68 Wt Readings from Last 3 Encounters: 10/21/23 77.1 kg (170 lb 0.6 oz) 09/30/23 78 kg (171 lb 14.4 oz) 09/27/23 79.2 kg (174 lb 11.2 oz) General: alert, healthy, no distress, well nourished, well developed, comfortable, and cooperative Head: Normocephalic, No masses, lesions, tenderness or abnormalities Eye Exam: PERRLA, extraocular movements intact, conjunctiva are pink and non- injected, sclera clear Neck: supple, no adenopathy, no bruits, thyroid normal size, non-tender, without nodularity Heart: regular rate & rhythm, no murmur, and no gallops Lungs: chest symmetric with normal AP diameter, no chest deformities noted, normal respiratory rateand rhythm, no chest wall tenderness, diaphragmatic excursion normal, lungs clear to auscultation Extremities: less than 2 second capillary refill, no joint deformities, effusion, or inflammation, no edema, no skin discoloration, no clubbing, no cyanosis I have reviewed the following results: CMP, Lipid Panel, and Hemoglobin A1C Assessment and Plan Type 2 diabetes mellitus with hemoglobin A1c goal of less than 7.0% (HCC) (Primary) HALIMA (obstructive sleep apnea) Need for hepatitis B vaccination - HEP B VACCINE, 20+ YRS (3-DOSE) HTN, goal below 140/90 Encounter for screening mammogram for breast cancer - MAMMOGRAM SCREENING ALLIE BILATERAL; Future; Expected date: 10/21/2023 Continue current medications. Wrap-Up Time: I spent a total of 30-39 minutes (exact time 37 mins) on the date of service in preparation, delivery, and documentation of the care provided to Estiven Burr excluding any time spent in the performance of separately billed services. documented in this encounter Nursing Notes * Cheyenne Mancini LPN - 10/21/2023 11:13 AM EST Pre-Administration Time Out Procedure Performed: Yes Patient Identified (Ask Name/Date of ): Yes Does the patient have a fever greater than 101 degrees today? No Patient allergic to latex? No Has the patient ever fainted after receiving an injection? No VFC Stock: No Immunization(s) verified: Yes, Immunization Name: Flu, VIS Sheet(s) given: Yes Verified Side and Site: Yes Verified Shot(s) with Parent(s)/Patient: Yes * Cheyenne Mancini LPN - 10/21/2023 11:02 AM EST Patient presents today for a follow up. She wanted to discuss hair loss, gastroparesis, cubital tunnel, her loss of stamina, she wanted to get a referral for dermatology, she wanted to discuss the difference between trulicity and ozempic. documented in this encounter Plan of Treatment Upcoming Encounters Date Type Department Care Team (Late st Contact Info) Description 12/20/2023 10:00 AM EST Nutrition Services Nutrition & Weight Management, [facility] [address] [address] Yamel Perry RDN [address] [place] [address] 03/24/2024 10:00 AM EDT Office Visit Gastroenterology, [facility] [address] [address] Lily Willams CRNP [address] [place] [address] 04/21/2024 9:00 AM EDT Office Visit Family Practice [facility] [address] [place] [address] Rebecca Arroyo PA-C [address] [address] 05/12/2024 11:00 AM EDT Nurse Only Ancillary [facility] [address] [place] [address] Im, Nurse Annual Wellness [facility] [address] [address] 05/14/2024 10:00 AM EDT Office Visit Sleep Disorders Ctr [facility] [place] [address] [place] [phone] Delia Kang CRNP [address] [place] [address] 09/25/2024 2:00 PM EDT Office Visit Neurology [facility] [place] [address] [place] [address] Ely Castillo, DO [address] [facility] [place] [address] Scheduled Orders Name Type Priority Associated Diagnoses Orde r Schedule MAMMOGRAM SCREENING ALLIE BILATERAL Medical Imaging Routine Encounter for screening mammogram for breast cancer Expected: 10/21/2023, Expires: 11/20/2024 Scheduled Procedures Name Priority Associated Diagnoses Date/Ti [...] 02/28/2021, Additional history exists HbA1c 04/17/2024 10/18/2023, 0407/2023, 09/14/2022, Additional history exists Depression Screening 05/08/2024 05/08/2023 Diabetic Eye Exam 05/08/2024 05/08/2023, , 01/16/2022, Additional history exists DXA Scan 04/18/2026 04/18/2021, [...] this encounter Medical Devices Implanted Type Area Commercial Credit Lead Device Identifier Shelf Expiration Date Model / Serial / Lot Envista Toric [id number] Se +19.5 Cyl 2.00 Implanted:Qty: 1 on 05/02/2021 by Azael Lopez MD at OR [facility] Left: Eye BAUSCH & LOMB 06/24/2021 [id number] / [id number] / [id number] Envista Hydrophobic Acrylic Intraocular Lens Implanted:Qty: 1 on 05/16/2021 by Azael Lopez MD at OR [facility] Right: Eye BAUSCH & LOMB 08/24/2022 [id number] / [id number] / [id number] documented as of this encounter Visit Diagnoses Diagnosis Type 2 diabetes mellitus with hemoglobin A1c goal of less than 7.0% (HCC)- Primary HALIMA (obstructive sleep apnea) Obstructive sleep apnea (adult) (pediatric) Need for hepatitis B vaccination Need for prophylactic vaccination and inoculation against viral hepatitis HTN, goal below 140/90 Unspecified essential hypertension Encounter for screening mammogram for breast cancer documented in this encounter Advance Directives Documents on File Type Date Recorded Patient White Lead Grinder Expl anation Advance Directives and Livin g Will 03/01/2017 LIVING WILL Power of Programmer Operator Numerical Control 03/01/2017 POWER OF A TTORNEY Care Teams Fbi Profiler Relationship Specialty Start Date End Date Cruz February Prachi, EMORY [address] [place] [address] PCP - General Physician Custom Bookbinder 03/31/19 documented as of this encounter
--- OUTSIDE RECORDS SUMMARY | 2023-12-06 02:25 | External Medical Summary | Summary of Care ---
Author Name Unknown Organization [facility] Address [address] [facility] [place] [address] Phone [phone] Care Team Providers Care Trucksmith Name Role Phone Rebecca Arroyo PA-C Primary Care Provider [phone] Encounter Details Date Type Department Care Team (Late st Contact Info) Description 10/24/2023 Orders Only Family Practice [facility] [address] [place] [address] Rebecca Arroyo PA-C 200 [facility] [place] [address] Allergies Active Allergy Reactions Criticality Noted Date Comments Nickel High 10/12/2020 Dermatology issues Other reaction(s): Rash/bleeding Other reaction(s): Rash/bleeding Pollen 05/05/2020 Nasal congestion documented as of this encounter (statuses as of 10/24/2023) Medications Medication Sig Dispensed Refills Start Date End Date Status [employer] SYSTEM W/DEVICE KITIndications:DM type 2, goal A1c [...] as of this encounter (statuses as of 10/24/2023) Active Problems Problem Noted Date Diagnosed Date [...] as of this encounter (statuses as of 10/24/2023) Resolved Problems Problem Noted Date Diagnosed Date Resolved Date Abnormal EKG 05/12/2019 08/03/2019 Encounter for examination fo r normal comparison and control in clinical research program 02/24/2019 06/27/2020 Overview: DO NOT DELETE Yo [facility] [place] DETECT Study: Project # [id number], Textile Artist: Dre Rouse, PhD. SUMMARY: Goal: Establish test [...] contact study staff at ; after hours Textile Artist via the [facility] hospital digital pre press operator . Please contact study team before resolving/deleting from patients problem list. Study phone number: [phone]. Diagnosis changed due to Research Module. Go to Snapshot for study details. Encounter for examination fo r normal comparison and control in clinical research program 02/24/2019 07/26/2022 Overview: DO NOT DELETE - Yo [facility] DETECT Study: Project # [id number], Textile Artist: Kaleb Flores, MS, MPH. SUMMARY: Goal: Establish [...] contact study staff at ; after hours Textile Artist via the [facility] hospital digital pre press operator . - Please contact study team before resolving/deleting from patients problem list. Study phone number: [phone]. Diagnosis changed due to Research Module. Go [...] as of this encounter (statuses as of 10/24/2023) Immunizations Name Administration Dates Next Due COVID-19 [...] EST Nutrition Services Nutrition & Weight Management, [facility] [address] [address] Yamel Perry RDN [address] [place] [address] 03/24/2024 10:00 AM EDT Office Visit Gastroenterology, [facility] [address] [address] Lily Willams CRNP [address] [place] [address] 04/21/2024 9:00 AM EDT Office Visit Family Practice [facility] 200 [facility] [place] [address] Rebecca Arroyo PA-C [address] [facility] [place] [address] 05/12/2024 11:00 AM EDT Nurse Only Ancillary [facility] [address] [facility] [place] [address] Im, Nurse Annual Wellness [facility] [address] [facility] [place] [address] 05/14/2024 10:00 AM EDT Office Visit Sleep Disorders Ctr [facility] [address] [place] [phone] Delia Kang CRNP [address] [place] [address] 09/25/2024 2:00 PM EDT Office Visit Neurology [facility] [address] [facility] [place] [address] Ely Castillo, DO [address] [facility] [address] Scheduled Procedures Name Priority Associated Diagnoses Date/Ti [...] Screening 05/08/2024 05/08/2023 Diabetic Eye Exam 05/08/2024 09/17/2023, , 09/11/2022, Additional history exists DXA [...] this encounter Medical Devices Implanted Type Area Intake Counselor Device Identifier Shelf Expiration Date Model / Serial / Lot Envista Toric [id number] Se +19.5 Cyl 2.00 Implanted:Qty: 1 on 05/02/2021 by Azael Lopez MD at OR [facility] Left: Eye BAUSCH & LOMB 06/24/2021 [id number] / [id number] / [id number] [employer]ista Hydrophobic Acrylic Intraocular Lens Implanted:Qty: 1 on 05/16/2021 by Azael Lopez MD at OR [facility] Right: Eye BAUSCH & LOMB 08/24/2022 [id number] / [id number] / [id number] documented as of this encounter Procedures Procedure Name Priority Date/Time Associated Diagnosis Comments DIABETIC EYE EXAM Routine 09/17/2023 documented in this encounter Results * DIABETIC EYE EXAM (09/17/2023) 09/17/2023 History Per Patient OTHER OUTSIDE LAB (SEE SCANNED REPORT) documented in this encounter Advance Directives Documents on File Type Date Recorded Patient Mold Design Engineer Expl anation Advance Directives and Livin g Will 03/01/2017 LIVING WILL Power of Deputy County Attorney 03/01/2017 POWER OF A TTORNEY Care Teams Trucksmith Relationship Specialty Start Date End Date CruzFebruary EMORY Vel[place] [address] [address] PCP - General Physician Chef De Partie 03/31/19 documented as of this encounter
--- OUTSIDE RECORDS SUMMARY | 2023-12-06 02:25 | External Medical Summary | Summary of Care ---
Author Name Unknown Organization [facility] Address [address] [facility] [place] [address] Phone [phone] Care Team Providers Care Cognos Bi Developer Name Role Phone Rebecca Arroyo EMORY Primary Care Provider [phone] Encounter Details Date Type Department Care Team (Late st Contact Info) Description 10/30/2023 Telephone Gastroenterology, [facility] [address] [place] [address] Justo Willams CRNP [address] [place] [address] Allergies Active Allergy Reactions Criticality Noted Date Comments Nickel High 10/12/2020 Dermatology issues Other reaction(s): Rash/bleeding Other reaction(s): Rash/bleeding Pollen 05/05/2020 Nasal congestion documented as of this encounter (statuses as of 10/30/2023) Medications Medication Sig Dispensed Refills Start Date End Date Status [employer] SYSTEM W/DEVICE KITIndications:DM type 2, goal A1c [...] hemoglobin A1c goal of less than 7.0% ([facility]) USE 1 STRIP TO CHECK GLUCOSE [...] program 02/24/2019 06/27/2020 Overview: DO NOT DELETE [facility] DETECT Study: Project # [id number], Auto Dealership Porter: Dre Rouse, PhD. SUMMARY: Goal: Establish test [...] contact study staff at ; after hours Auto Dealership Porter via the [facility] hospital textile slitting machine operator . Please contact study team before resolving/deleting from patients problem list. Study phone number: [phone]. Diagnosis changed due to Research Module. Go to Snapshot for study details. Encounter for examination fo r normal comparison and control in clinical research program 02/24/2019 07/26/2022 Overview: DO NOT DELETE - [facility] DETECT Study: Project # [id number], Auto Dealership Porter: Kaleb Flores, MS, MPH. SUMMARY: Goal: Establish [...] contact study staff at ; after hours Auto Dealership Porter via the [facility] hospital textile slitting machine operator . - Please contact study team before resolving/deleting from patients problem list. Study phone number: [phone]. Diagnosis changed due to Research Module. Go [...] gastroparesis, SIBO, IBS but also estbalished with [place] Regarding her nausea and constipation I recommend [...] EST Nutrition Services Nutrition & Weight Management, [facility] [address] [address] Yamle Perry RDN [address] [address] 03/24/2024 10:00 AM EDT Office Visit Gastroenterology, [facility] [address] [address] Justo Willams CRNP [address] [address] 04/21/2024 9:00 AM EDT Office Visit [facility] [address] [address] Rebecca Arroyo PA-C [address] [facility] [place] [address] 05/12/2024 11:00 AM EDT Nurse Only Ancillary [facility] [address] [place] [address] Im, Nurse Annual Wellness [facility] [address] [place] [address] 05/14/2024 10:00 AM EDT Office Visit Sleep Disorders Ctr Brando Carrasco [place] [address] [place] [phone] Delia Kang CRNP [address] [place] [address] 09/25/2024 2:00 PM EDT Office Visit Neurology [facility] [address] [place] [address] Ely Castillo, DO [address] [place], [place] [id number] Scheduled Orders Name Type Priority Associated Diagnoses [...] this encounter Medical Devices Implanted Type Area Soda Room Operator Device Identifier Shelf Expiration Date Model / Serial / Lot Envista Toric [id number] Se +19.5 Cyl 2.00 Implanted:Qty: 1 on 05/02/2021 by Azael Lopez MD at OR [facility] Left: Eye BAUSCH & LOMB 06/24/2021 [id number] / [id number] / [id number] [employer]ista Hydrophobic Acrylic Intraocular Lens Implanted:Qty: 1 on 05/16/2021 by Azael Lopez MD at OR [facility] Right: Eye BAUSCH & LOMB 08/24/2022 [id number] / [id number] / [id number] documented as of this encounter Visit Diagnoses Diagnosis Nausea- Primary Nausea alone Constipation, unspecified constipation type documented in this encounter Advance Directives Documents on File Type Date Recorded Patient Automation Lead Expl anation Advance Directives and Livin g Will 03/01/2017 LIVING WILL Power of Cork Insulator 03/01/2017 POWER OF A TTORNEY Care Teams Cognos Bi Developer Relationship Specialty Start Date End Date CruzFebruary EMORY Velarde [address] [place] [address] PCP - General Physician Iv Rn 03/31/19 documented as of this encounter
--- OUTSIDE RECORDS SUMMARY | 2023-12-06 02:26 | External Medical Summary | Summary of Care ---
Author Name Unknown Organization [facility] Address [address] [place] [address] Phone [phone] Care Team Providers Care Stem Lead Former Name Role Phone Rebecca Arroyo EMORY Primary Care Provider [phone] Reason for Visit * Reason Comments Outpatient Testing Encounter Details Date Type Department Care Team (Late st Contact Info) Description 10/18/2023 8:50 AM EST Laboratory Laboratory [facility] [place] [address] [place] [address] [facility] [address] [place] [address] Type 2 diabetes mellitus with hemoglobin A1c goal of less than 7.0% ([facility]) Allergies Active Allergy Reactions Criticality Noted Date Comments Nickel High 10/12/2020 Dermatology issues Other reaction(s): Rash/bleeding Other reaction(s): Rash/bleeding Pollen 05/05/2020 Nasal congestion documented as of this encounter (statuses as of 10/18/2023) Medications Medication Sig Dispensed Refills Start Date End Date Status [employer] SYSTEM W/DEVICE KITIndications:DM type 2, goal A1c [...] hemoglobin A1c goal of less than 7.0% ([facility]) USE 1 STRIP TO CHECK GLUCOSE ONCE [...] DAY BEFORE PROCEDURE 0 09/04/20 23 Active documented as of this encounter (statuses as of 10/18/2023) Active Problems Problem Noted Date Diagnosed Date Medical marijuana use 03/18/2023 History of 2019 [...] as of this encounter (statuses as of 10/18/2023) Resolved Problems Problem Noted Date Diagnosed Date Resolved Date Abnormal EKG 05/12/2019 08/03/2019 Encounter for examination fo r normal comparison and control in clinical research program 02/24/2019 06/27/2020 Overview: DO NOT DELETE Yo [facility] Study: Project # [id number], Taxi Proprietor: Dre Rouse, PhD. SUMMARY: Goal: Establish test [...] contact study staff at ; after hours Taxi Proprietor via the [facility] insole toe snipping machine operator . Please contact study team before resolving/deleting from patients problem list. Study phone number: [phone]. Diagnosis changed due to Research Module. Go to Snapshot for study details. Encounter for examination fo r normal comparison and control in clinical research program 02/24/2019 07/26/2022 Overview: DO NOT DELETE - [facility] DETECT Study: Project # [id number], Taxi Proprietor: Kaleb Flores, MS, MPH. SUMMARY: Goal: Establish [...] contact study staff at ; after hours Taxi Proprietor via the [facility] insole toe snipping machine operator . - Please contact study team before resolving/deleting from patients problem list. Study phone number: [phone]. Diagnosis changed due to Research Module. Go [...] as of this encounter (statuses as of 10/18/2023) Immunizations Name Administration Dates Next Due COVID-19 mRNA, LNP-s, No Pre serve, 2-Dose Series (Moderna) 01/24/2021,12/21/2020 COVID-19 mRNA, LNP-s, No Pre serve, 2-Dose Series (Pfizer) 05/17/2022 COVID-19, mRNA, LNP-s, PF, B ooster, 100mcg/0.5mg (Moderna) 09/25/2021 Covid-19, Mrna, Lnp-s, Pf, B ivalent, 30 Mcg, IM, 12 yrs and above (Pfizer) 11/22/2022 H1N1 2009 Influenza, IM 09/10/2013,12/12/2009 Hepatitis B, 20+ yrs 05/27/2023,03/18/2023 Pneumococcal Conjugate Vacc, 13 Valent (Prevnar) 08/15/2017,02/09/2016 [...] 10/21/2023 11:00 AM EST Office Visit Family Practice [facility] [address] [place] [address] Rebecca Arroyo PA-C [address] [facility] [place] [address] 12/20/2023 10:00 AM EST Nutrition Services Nutrition & Weight Management, [facility] [address] [facility] [place] [address] Yamel Perry RDN [address] [facility] [place] [address] 03/24/2024 10:00 AM EDT Office Visit Gastroenterology, [facility] [address] [place] [address] Lily Willams CRNP [address] [facility] [place] [address] 05/12/2024 11:00 AM EDT Nurse Only Ancillary [facility] [address] [facility] [place] [address] Im, Nurse Annual Wellness [facility] [address] [facility] [place] [address] 05/14/2024 10:00 AM EDT Office Visit Sleep Disorders [facility] [address] [facility] [place] [phone] Delia Kang CRNP [address] [facility] [place] [address] 09/25/2024 2:00 PM EDT Office Visit Neurology [facility] [address] [facility] [place] [address] Ely Castillo, DO [address] [place] [address] Pending Results Name Type Priority Associated Diagnoses Date /Time HEMOGLOBIN A1C Lab Routine Type 2 diabetes mellitus with hemoglobin A1c goal of less than 7.0% ([facility]) 10/18/2023 8:52 AM EST Scheduled Procedures Name Priority Associated Diagnoses Date/Ti me COLONOSCOPY FLEXIBLE PROXIMAL DIAGNOSTIC Recall Colon cancer screening Health Maintenance Due Date Last Done Comments COVID-19 Vaccine ( season) 2023 11/22/2022, 05/17/2022, 09/25/2021, Additional history exists HbA1c 09/12/2023 03/13/2023, 08/26, 03/12/2022, Additional history exists Hepatitis B (3 of 3 - Risk 3-dose series) 09/17/2023 05/27/2023, 03/18/2023 Albumin/Creatinine Ratio 03/13/2024 023, 03/12/2022, 09/23/2018, Additional history exists B-12 03/13/2024 03/13/2023, 12/0 04/2021, 09/13/2021, Additional history exists GFR 03/13/2024 03/13/2023, 11/27, 03/27/2022, Additional history exists Diabetic Foot Exam 03/18/2024 03/18/2023, 0 05/07/2022, 02/28/2021, Additional history exists Depression Screening 05/08/2024 05/08/2023 [...] Completed , 08/23/2022, 08/23/2022, Additional history exists GARDASIL-HPV IMMUNIZATION SERIES Aged Out No longer eligible based on patient's age to complete this topic MENINGOCOCCAL (MENACTRA/MENVEO) Aged Out No longer eligible based on patient's age to complete this topic documented as of this encounter Medical Devices Implanted Type Area Catering Coordinator Device Identifier Shelf Expiration Date Model / Serial / Lot Envista Toric [id number] Se +19.5 Cyl 2.00 Implanted:Qty: 1 on 05/02/2021 by Azael Lopez MD at OR [facility] Left: Eye [employer] 06/24/2021 [id number] / [id number] / [id number] Envista Hydrophobic Acrylic Intraocular Lens Implanted:Qty: 1 on 05/16/2021 by Azael Lopez MD at OR [facility] Right: Eye [employer]OM[employer] 08/24/2022 [id number] / [id number] / [id number] documented as of this encounter Visit Diagnoses Diagnosis Type 2 diabetes mellitus with hemoglobin A1c goal of less than 7.0% (HCC) documented in this encounter Advance Directives Documents on File Type Date Recorded Patient Seo Manager Expl anation Advance Directives and Livin g Will 03/01/2017 LIVING WILL Power of Senior Manager 03/01/2017 POWER OF A TTORNEY Care Teams Stem Lead Former Relationship Specialty Start Date End Date CruzFebruary EMORY Velarde [address] [place] [address] PCP - General Physician Eradicator 03/31/19 documented as of this encounter
--- OUTSIDE RECORDS SUMMARY | 2023-12-06 02:26 | External Medical Summary ---
Author Name Unknown Address Unknown Organization [id number]:LABORATORY [facility] [place] - [address] [facility] [address] Laboratory Report Ordering Provider Test Date Status 10/18/2023 08:52:33 Final Observation Date Value Abnormality Reference (Units ) Status HbA1C 10/18/2023 08:52:33 5.3 4.0-5.6 (% ) Final The use of HbA1c to monitor glycemic status is based on normal hemoglobin and HbA composition. This test should not be used in patients with abnormal hemoglobin that affects the half life of the red blood cell or the in vivo glycation rates. Glucose, estimated average 10/18/2023 08:52:33 105 <126 (mg/dL) Final Performing Location LAB[facility]ATORY [facility] - [address] [facility] [address]
[2023-12-06 04:35] LABS: Chol HDL Ratio 2.6 (0-5)
[2023-12-06] MEDS ORDERED: valACYclovir HCL 500 MG TABLET PO SCH (08:00)
--- NOTE | 2023-12-06 08:22 | Cardiology Consultation ---
Date of Consultation December 06, 2023 Assessment & Plan (1) Chest pain: (2) HTN (hypertension): (3) Dyslipidemia: (4) Diabetes mellitus: Plan Assessment: 78 year old female with multiple co-morbidities presents with chest discomfort during snow shoveling. Plan: 1. Chest pain: -Etiology unclear, EKG not suggestive or acute ischemia; however, patient presents with multiple risk factors for concern. -consideration for possible muscular-skeletal involvement given patient's type of activity on day of event in comparison to her baseline. -Troponin negative x3 -No events on telemetry overnight -Will obtain echocardiogram to assess overall structure and function, and for any evidence of wall motion abnormality. No recent echo for comparison. -Pending echo results, will plan to proceed with cardiac stress testing, which may need to take place on an outpatient basis if no acute findings. Patient has chronic lumbar disc disease with chronic pain of the back and hips often ambulates with a cane. Nuclear stress testing would be the most beneficial for further investigation -Blood pressures remain at target. -Continue GDMT with ASA 81mg, Atorvastatin, and Lisinopril at this time. 2. HTN: -At target -Continue patient's current regimen with Lisinopril. 3. Dyslipidemia: -Known history and also has multiple risk factors given family history as well as her history of diabetes. -Continue Atorvastatin at this time. -Most recent OP lipid panel 02/2023 which was stable. 4. Diabetes -Continued management per primary team. -last known HgB A1C 5.3. Case has been discussed with Dr. Tinajero. Further recommendations regarding plan of care as per his assessment. I spent a total of 30 minutes on the date of service in preparation, delivery, documentation of the care provided to the patient excluding any time spent in the performance of separately billed services. BINDU Silva [facility] Cardiology [facility] Supervising Physician Co-Signing Physician Notes Attending attestation: I have reviewed the advanced practitioner's documentation and agree with the plan of care. I accept the responsibility for the associated risk of managing the patient. Subjective: Patient feeling well at the time of my assessment. She remains in the emergency department as a telemetry hold. She had a noontime meal and tolerated it well. Telemetry reveals sinus rhythm in the 70s. Exam: Cardiovascular: Regular rhythm, no murmurs Data: High-sensitivity troponin negative x 3. EKG with findings of age-indeterminate anterior infarct with poor R wave progression anterior precordial leads which is a chronic finding for her. Echocardiogram performed today and interpreted independently, normal left ventricular wall motion, hyperdynamic LVEF 65 to 70%, grade 1 diastolic dysfunction, no significant valvular heart disease Impression/ Plan: -Problem list as noted above -EKG tracings and serial troponin levels reassuring. -Patient scheduled for outpatient Lexiscan nuclear stress test at [facility] on 12/13/2023, 9 AM, she should avoid caffeine for 12 to 24 hours and advance the test. -Pt stable for discharge after reassessed by the attending hospitalist if he concurs. I spent a total of 25 minutes coordinating, documenting, and providing care for this patient excluding time spent in the performance of separately billed servic es or time spent by another provider. Ivan Tinajero DO History of Present Illness Reason for Consultation: Chest pain Requesting Physician: [facility] hospitalist Attending Physician: Pascual Holm MD History of Present Illness Patient is a 78 year old female with PMHx significant for HTN, dyslipidemia, HALIMA (CPAP), DM, peripheral neuropathy, gastroparesis, and GERD that presented to the ED with two day complaint of intermittent chest "discomfort" described as a pressure that starts at her left anterior chest and radiates to her back. Patient states that Saturday (3 days ago), she woke feeling her usual state of health, she had gone out to shovel the driveway when she was nearly done, she started to feel the described discomfort. She continued to finish the driveway, went inside and sat down. She fell asleep and woke the next morning with no concerns. On she started with the same discomfort again and reported that it was intermittent, varied in intensity, had no other associated symptoms, no aggravating or alleviating factors. She contacted the PCP office who then prompted her to present to the ED for further evaluation. EKG on admission shows SR with suggestion of Poor R wave progression. No acute ST-T wave changes. Review of telemetry shows NSR with no ectopy or arrhythmia. No events overnight. Patient is resting in bed in the emergency room at this time. Reports her discomfort remains a 3/10 with no distress. She reports no events over night. Troponin negative x3, other labs unremarkable. Of note, patient follows with OP cardiology, Dr. Tinajero. last office visit 09/30/23 doing well from a cardiac perspective at that time. She has a history of negative cardiac cath in 2008, and negative dobutamine stress echocardiogram in 2013. Allergies Allergy/AdvReac Type Severity Reaction Status Date / Time nickel Allergy Intermediate Rash/bleedi Verified 09/04/23 11:05 ng No Known Drug Allergies Allergy Verified 09/04/23 11:05 Home Medications Medication Instructions Recorded Confirmed Type aspirin 81 mg tablet,delayed 81 mg PO HS 11/09/19 12/05/23 History release (Mars Low Dose Aspirin) atorvastatin 10 mg tablet 10 mg PO QPM 11/09/19 12/05/23 History lisinopril 10 mg tablet 10 mg PO QAM 11/09/19 12/05/23 History valacyclovir 500 mg tablet 500 mg PO Q OTHER DAY genital 11/09/19 12/05/23 History (Valtrex) herpes vit C 250 mg-vit E 90 mg-zinc 40 1 tab PO QAM 11/09/19 12/05/23 History mg-copper 1 gj-tyemwo-xichok capsule (PreserVision AREDS-2) vitamin B complex 1 tab PO QAM 11/09/19 12/05/23 History gabapentin 300 mg capsule See Rx Instructions .Route .COMPLEX 09/06/21 12/05/23 History metoclopramide HCl 5 mg tablet 5 mg PO QDD 09/06/21 12/05/23 History (Reglan) polyethylene glycol 3350 17 gram 17 g PO 3XWK 09/06/21 12/05/23 History oral powder packet (Miralax) biotin 1000 1,000 mcg PO DAILY 09/04/23 12/05/23 History coQ10 (ubiquinol) 100 mg capsule 100 mg PO Q OTHER DAY 09/04/23 12/05/23 History (Qunol Quan CoQ10) dulaglutide 0.75 mg/0.5 mL 0.75 mg subcut Q10D 09/04/23 12/05/23 History subcutaneous pen injector (Trulicity) ferrous sulfate 142 mg (45 mg 142 mg PO QPM 09/04/23 12/05/23 History iron) tablet,extended release omega 4-oxb-vml-fish oil 1,000 mg 1 cap PO TID 09/04/23 12/05/23 History (120 mg-180 mg) capsule (Fish Oil) ondansetron HCl 4 mg tablet 4 mg PO Q8H PRN Nausea 09/04/23 12/05/23 History pantoprazole 20 mg tablet,delayed 20 mg PO DAILY 09/04/23 12/05/23 History release metformin 500 mg tablet,extended 500 mg PO QDD 12/05/23 12/05/23 History release 24 hr Patient History Medical History (Updated 12/05/23 @ 22:02 by Jairo Burden, ) Gastroparesis Obesity Neuropathy of foot Arthritis of foot Left carpal tunnel syndrome GERD (gastroesophageal reflux disease) controlled Diabetes mellitus, type 2 NIDDM Anxiety controlled without meds Depression controlled without meds Migraine hx Hypertension Hyperlipidemia Sleep apnea CPAP (compliant) Syncope Three episodes in 2014. Cardiac workup included echo, event monitor and tilt- table test, all negative. Determined to be "swallow syncope," as episodes were preceded by patient ingesting hot liquid. Follows with Gabbi Mcmullen ([facility] in [place], Dr. Cristiano Greenfield). 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 No episodes since 2015. S/P right ankle fusion at [facility] 11/2019 under [place] without issue* Pancreatitis ~2014 Schatzki's ring RLS (restless legs syndrome) Surgical History History of back surgery fusion 2020 History of tooth extraction with implants Hx of cataract extraction R/L History of ankle surgery Right ankle fusion (12/08/19): Grade view 2, MAC#3, ETT 7.5 at [facility] History of anesthesia reaction post-op "brain fog" for several weeks H/O breast biopsy L breast, metal marker remains H/O release of tendon right wrist History of open reduction and internal fixation (ORIF) procedure right wrist History of carpal tunnel release Right S/P Botox injection Bladder (for urinary incontinence) History of esophageal dilatation History of esophagogastroduodenoscopy (EGD) History of colonoscopy History of endoscopic sinus surgery History of adenoidectomy History of cardiac cath 2008 @ [facility] > no stents Hx of tonsillectomy H/O tubal ligation Family History Unknown Heart disease Lymphoma Father Hypertension Other No family history of adverse response to anesthesia Social History Smoking Status: Never smoker Second Hand Exposure: No; Do You Dip or Chew Tobacco: No; Hx Alcohol Use: Yes Alcohol type: beer, wine and hard liquor Hx Substance Use: No Preferred Language: Vietnamese Communication Ability: Effective Visual Impairment: No Limitations Display Trimmer Required: No Beliefs That Will Affect Care: None Current Living Situation: Alone Other Information That Helps Us Care for You: No Feels Safe at Home: Yes Assistive Devices: Cane, CPAP and Glasses Review of Systems Review of Systems: All systems reviewed & are unremarkable except as noted in HPI & below Physical Exam Constitutional: well developed, well nourished and + overweight; no acute distress Neck: normal visual inspection and trachea midline Respiratory: normal respiratory effort, lungs clear to auscultation Cardiovascular: RRR, no murmur, no edema Vessels: dorsalis pedis pulses present; no JVD Skin: no rashes, warm and dry Psychiatric: A+Ox3, euthymic affect Results & Data Vital Signs (Past 12 Hours) Vital Signs Temp Pulse Pulse Resp BP Pulse Ox Pulse Ox 12/06/23 07:50 86 12/06/23 05:56 37.1 C 64 16 113/58 L 94 12/06/23 02:08 36.7 C 70 16 90/54 L 96 12/06/23 02:08 97 12/05/23 22:23 120/67 12/05/23 22:00 70 18 120/67 96 12/05/23 20:58 76 O2 Del Method O2 Del Method 12/06/23 07:50 12/06/23 05:56 Room Air 12/06/23 02:08 Room Air 12/06/23 02:08 Room Air 12/05/23 22:23 12/05/23 22:00 Room Air 12/05/23 20:58 Laboratory Results Cardiac Enzymes 12/05/23 12/05/23 12/06/23 Range/Units 14:50 20:49 03:26 AST 18 (13-39) U/L Troponin I High Sens 3.9 4.3 3.7 (0-14) pg/ml B-Natriuretic Peptide 11 (0-100) pg/ml Coagulation 12/05/23 12/05/23 Range/Units 14:50 20:49 PT 11.2 (9.0-12.0) Seconds APTT 26 (21-31) Seconds B-Natriuretic Peptide 11 (0-100) pg/ml Lipids 12/06/23 Range/Units 03:26 Triglycerides 136 (0-150) mg/dl Cholesterol 111 (0-200) mg/dl HDL Cholesterol 43 mg/dl Cholesterol/HDL Ratio 2.6 (0-5) CBC 12/05/23 Range/Units 14:50 WBC 6.23 (4.8-10.8) K/ul RBC 4.23 (4.20-5.40) M/uL Hgb 13.6 (12.0-16.0) g/dl Hct 39.8 (37.0-47.0) % Plt Count 188 (130-400) K/uL Neut # (Auto) 2.93 (1.40-6.50) K/uL Lymph # (Auto) 2.15 (1.20-3.40) K/uL Sanborn # (Auto) 0.95 H (0.11-0.59) K/uL Eos # (Auto) 0.15 (0.00-0.50) K/uL Baso # (Auto) 0.03 (0.00-0.20) K/uL Comprehensive Metabolic Panel 12/05/23 Range/Units 14:50 Sodium 136 (136-145) mmol/L Potassium 4.0 (3.5-5.1) mmol/L Chloride 102 (98-107) mmol/L Carbon Dioxide 26 (21-32) mmol/L BUN 14 (6-23) mg/dl Creatinine 0.65 (0.6-1.2) mg/dl Glucose 87 (70-99(Fasting)) mg/dl Calcium 9.5 (8.6-10.3) mg/dl AST 18 (13-39) U/L ALT 14 (7-52) U/L Alkaline Phosphatase 66 (34-104) U/L Total Protein 7.4 (6.0-8.3) gm/dl Albumin 4.4 (3.4-5.0) gm/dl Intake and Output 12/05/23 12/06/23 12/06/23 22:59 06:59 14:59 Other: # Unmeasured Voids 3 Weight 73 kg Weight Measurement Method Built in [facility] Diagnostic Findings Echocardiogram pending (1) Chest pain Chest pain type: unspecified Qualified Code(s): R07.9 - Chest pain, unspecified (2) HTN (hypertension) Hypertension type: primary hypertension Qualified Code(s): I10 - Essential (primary) hypertension (4) Diabetes mellitus Diabetes mellitus complication detail: with unspecified neuropathy Diabetes mellitus complication status: with neurologic complications Diabetes mellitus fci insulin use: without fci use Diabetes mellitus type: type 2 Qualified Code(s): E11.40 - Type 2 diabetes mellitus with diabetic neuropathy, unspecified
[2023-12-06] MEDS ORDERED: POLYETHYLENE (MIRALAX) 17 GM PACK PO SCH (09:00)
[2023-12-06] MEDS ORDERED: NON-FORMULARY MEDICATION (Vit C,E-Zn-Coppr-Lutein-Zeaxan [Preservision Areds-2] 250-200-40 PO SCH (09:00)
[2023-12-06] MEDS: GABAPENTIN 600 MG TAB PO SCH (10:47)
[2023-12-06] MEDS: VITAMIN B COMPLEX TAB PO SCH (10:48)
[2023-12-06] MEDS: PANTOprazole 40 MG TAB PO SCH (10:48)
[2023-12-06] MEDS: lisinopril 10 MG TAB PO SCH (10:49)
--- NOTE | 2023-12-06 12:04 | Electrocardiogram Report ---
Test Reason : Blood Pressure : / mmHG Vent. Rate : 068 BPM Atrial Rate : 068 BPM P-R Int : 196 ms QRS Dur : 084 ms QT Int : 388 ms P-R-T Axes : 066 020 033 degrees QTc Int : 412 ms Normal sinus rhythm Poor R wave progression, consider anterior [place] vs. lead placement vs. LVH Abnormal ECG When compared with ECG of 05-DEC-2023 14:48, No significant change was found Confirmed by Abdi Romo ([id number]) on 12/06/2023 12:04:22 PM Referred By: REFERRED SELF Confirmed By:Abdi Romo
[2023-12-06] MEDS: GABAPENTIN 300 MG CAP PO SCH (12:46)
[2023-12-06] MEDS: METOCLOPRAMIDE HCL 5 MG TABLET PO SCH (15:47)
[2023-12-06 16:32] LABS: D Dimer 3730 ug/L FEU (0-500)
[2023-12-06] MEDS ORDERED: OPTIRAY 320 125ml IV ONE (17:12)
--- NOTE | 2023-12-06 17:31 | CT Scan Report ---
CHEST CTA for PULMONARY ARTERIES CT DOSE: 557.75 mGy.cm HISTORY: Atypical chest pain, r/o PE TECHNIQUE: Multiaxial CT images of the chest were performed following the intravenous administration of contrast to evaluate the pulmonary arteries. 3D/Maximal intensity projection images were also obta ined. Sagittal and coronal reformations were also reviewed. A dose lowering technique was utilized a dhering to the principles of ALARA. COMPARISON STUDY: Chest CT 11/13/2015. FINDINGS: Limited views the upper abdomen demonstrate normal liver, spleen, and adrenal glands. There is a small hiatus hernia. Normal caliber esophagus. The thyroid gland enhances normally. No mediasti nal or hilar lymphadenopathy. The heart is mildly enlarged. No pleural or pericardial effusions. Smal l calcification adjacent to the liver. No acute fractures identified. The central airways are patent. No pneumothorax. Stable 4 mm subpleural nodule within the left upper lobe on image 124 and a stable 5 mm subpleural nodule in the right minor fissure on image 100. These are considered to be benign giv en the long-term stability. No new or suspicious pulmonary nodules identified. Chronic basilar predom inant interstitial thickening has slightly progressed. Otherwise, no new focal lung consolidations to suggest a pneumonia. No evidence for pulmonary edema. Normal caliber thoracic aorta with no evidence for a dissection. Questionable filling defect within a lingular segmental pulmonary artery on image 88 is likely due to the motion artifact. Otherwise, no definite filling defects within the pulmonary arteries to suggest a pulmonary embolus. IMPRESSION: 1. No definite filling defects within the pulmonary arteries to suggest a pulmonary embolus. 2. Mild cardiomegaly. 3. Mild chronic interstitial thickening. 4. Small hiatus hernia. ACT 112: Negative or not required by law. Electronically signed by: Monty Wilkinson M.D. 12/06/2023 5:29 PM
--- NOTE | 2023-12-06 19:15 | Ultrasound Report ---
ULTRASOUND BILATERAL LOWER EXTREMITY VENOUS CLINICAL HISTORY: Elevated d-dimer COMPARISON STUDY: Right lower extremity venous ultrasound dated 02/01/2023 TECHNIQUE: Real-time, grayscale, and color Doppler sonography of the deep veins of the right and left lower extremity was performed from the inguinal crease to the calf. Compression and augmentation wer e utilized. FINDINGS: Right lower extremity: There is no sonographic evidence of deep venous thrombosis in the right lower extremity. The common femoral, superficial femoral, and popliteal veins are patent and normally compr essible. The greater saphenous vein and the profunda femoris vein at the junction with the common fem oral vein are clear. The visualized calf veins are patent. Left lower extremity: There is trace chronic thrombus in the left calf within one of the posterior ti bial veins. There is no sonographic evidence of acute deep venous thrombosis in the left lower extrem ity. The remaining calf vessels are clear. The common femoral, superficial femoral, and popliteal vei ns are patent and normally compressible. The greater saphenous vein and the profunda femoris vein at the junction with the common femoral vein are clear. IMPRESSION: 1. There is no sonographic evidence of acute deep venous thrombosis in the right or left lower extrem ity. 2. Trace chronic thrombus is seen in the left calf within one of the posterior tibial veins. ACT 112: Negative or not required by law. Electronically signed by: To Nicole M.D. 12/06/2023 7:13 PM
[2023-12-06] MEDS: ASPIRIN 81 MG ECTAB PO SCH (21:01)
[2023-12-06] MEDS: FERROUS SULFATE 325 MG TAB PO SCH (21:01)
[2023-12-06] MEDS: ATORVASTATIN 10 MG TAB PO SCH (21:02)
[2023-12-06 21:54] LABS: Appearance Urine Clear (Clear); Bacteria Urine Automated Negative (Negative); Bilirubin Urine Negative (Negative); Blood Urine 1+ (Negative); Cast Urine Automated 0 /lpf (0-5); Color Urine Yellow; Glucose Urine UA Negative (Negative); Ketones Urine Negative (Negative); Leukocyte Esterase Urine Negative (Negative); Nitrite Urine Negative (Negative); Protein Urine Negative (Negative); RBC Urine Automated 0-4 /hpf (0-4); Specific Gravity Urine 1.042 (1.000-1.030); Urobilinogen Urine Negative (Negative)
--- OUTSIDE RECORDS SUMMARY | 2023-12-07 01:36 | External Medical Summary | Summary of Care ---
Author Name Unknown Organization [facility] Address [address] [place] [address] Phone [phone] Care Team Providers Care Return Agent Name Role Phone Rebecca Arroyo EMORY Primary Care Provider [phone] Reason for Referral * Precert (Within 10 days (routine)) - Authorized Specialty Diagnoses / Procedures Referred By Contac t Referred To Contact Radiology Diagnoses Dyslipidemia, goal LDL below 100 HTN, goal below 140/90 Chest pain, unspecified type Procedures NM MYOCARD PERF IMG SPECT MULT STUDIES WITH PHARM INTERV Ivan Tinajero DO [address] [place] [address] Referral ID Status Reason Start Date Expiration Date V isits Requested Visits Authorized [id number] Authorized Precert 12/06/2023 999 999 * Precert (Within 10 days (routine)) - Authorized Specialty Diagnoses / Procedures Referred By Contac t Referred To Contact Radiology Diagnoses Dyslipidemia, goal LDL below 100 HTN, goal below 140/90 Chest pain, unspecified type Procedures NM MYOCARD PERF IMG SPECT MULT STUDIES WITH PHARM Ivan Bird DO [address] [place] [address] Referral ID Status Reason Start Date Expiration Date V isits Requested Visits Authorized [id number] Authorized Precert 12/13/2023 999 999 Encounter Details Date Type Department Care Team (Late st Contact Info) Description 12/06/2023 Telephone Cardiology, [facility] [address] [place] [address] Ivan Tinajero, DO [address] [place] [address] Allergies Active Allergy Reactions Criticality Noted Date Comments Nickel High 10/12/2020 Dermatology issues Other reaction(s): Rash/bleeding Other reaction(s): Rash/bleeding Pollen 05/05/2020 Nasal congestion documented as of this encounter (statuses as of 12/06/2023) Medications Medication Sig Dispensed Refills Start Date End Date Status Bee [employer] (Astilbe) SYSTEM W/DEVICE KITIndications:DM type 2, goal A1c [...] as of this encounter (statuses as of 12/06/2023) Active Problems Problem Noted Date Diagnosed Date [...] as of this encounter (statuses as of 12/06/2023) Resolved Problems Problem Noted Date Diagnosed Date Resolved Date Abnormal EKG 05/12/2019 08/03/2019 Encounter for examination fo r normal comparison and control in clinical research program 02/24/2019 06/27/2020 Overview: DO NOT DELETE [facility] DETECT Study: Project # [id number], Sewing Machine Operator Floorperson: Dre Rouse, PhD. SUMMARY: Goal: Establish test [...] contact study staff at ; after hours Sewing Machine Operator Floorperson via [place] [facility] [place] motor [place] . Please contact study team before resolving/deleting from patients problem list. Study phone number: [phone]. Diagnosis changed due to Research Module. Go to [employer] for study details. Encounter for examination fo r normal comparison and control in clinical research program 02/24/2019 07/26/2022 Overview: DO NOT DELETE - [facility] Study: Project # [id number], Sewing Machine Operator Floorperson: Kaleb Flores, MS, MPH. SUMMARY: Goal: Establish [...] contact study staff at ; after hours Sewing Machine Operator Floorperson via the [facility] yard motor operator . - Please contact study team before resolving/deleting from patients problem list. Study phone number: [phone]. Diagnosis changed due to Research Module. Go to [employer] for study details. Severe obesity (BMI 35.0-39. [...] as of this encounter (statuses as of 12/06/2023) Immunizations Name Administration Dates Next Due COVID-19 [...] encounter Miscellaneous Notes * Telephone Encounter - Martha Carpio LPN - 12/06/2023 10:44 AM EST Patient in need of Nuclear stress test. To stated available appt on 12/13/23 @ 9am at [facility] documented in this encounter Plan of Treatment Upcoming Encounters Date Type Department Care Team (Late st Contact Info) Description 12/20/2023 10:00 AM EST Nutrition Services Nutrition & Weight Management, [facility] [address] [place] [address] Yamel Perry RDN [address] [place] [address] 03/24/2024 10:00 AM EDT Office Visit Gastroenterology, [facility] [address] [facility] [place] [address] Lily Willams CRNP [address] [facility] [place] [address] 04/21/2024 9:00 AM EDT Office Visit Family Practice [facility] [address] [facility] [place] [address] Rebecca Arroyo PA-C [address] [facility] [place] [address] 05/12/2024 11:00 AM EDT Nurse Only Ancillary [address] [place] [address] Im, Nurse Annual Wellness [address] [place] [address] 05/14/2024 10:00 AM EDT Office Visit Sleep Disorders Ctr [facility] [address] [facility] [place] [id number] Delia Kang CRNP [address] [facility] [place] [address] 09/25/2024 2:00 PM EDT Office Visit Neurology [facility] [address] [facility] [place] [address] Ely Castillo, DO [address] [place] [address] Scheduled Orders Name Type Priority Associated Diagnoses Orde r Schedule NM MYOCARD PERF IMG SPECT MULT STUDIES WITH PHARM INTERV Cardiology Routine DYSLIPIDEMIA, GOAL LDL BELOW 100 HTN, goal below 140/90 Chest pain, unspecified type Expected: 12/13/2023 (Approximate), Expires: 01/06/2025 NM MYOCARD PERF IMG SPECT MULT STUDIES WITH PHARM INTERV Cardiology Routine DYSLIPIDEMIA, GOAL LDL BELOW 100 HTN, goal below 140/90 Chest pain, unspecified type Expected: 12/06/2023 (Approximate), Expires: 01/06/2025 Scheduled Procedures Name Priority Associated Diagnoses Date/Ti [...] this encounter Medical Devices Implanted Type Area Ventilating Expert Device Identifier Shelf Expiration Date Model / Serial / Lot Envista Toric [id number] Se +19.5 Cyl 2.00 Implanted:Qty: 1 on 05/02/2021 by Azael Lopez MD at OR [facility] Left: Eye [employer] 06/24/2021 [id number] / [id number] / [id number] Envista Hydrophobic Acrylic Intraocular Lens Implanted:Qty: 1 on 05/16/2021 by Azael Lopez MD at OR [facility] Right: Eye [employer]OM[employer] 08/24/2022 [id number] / [id number] / [id number] documented as of this encounter Visit Diagnoses Diagnosis DYSLIPIDEMIA, GOAL LDL BELOW 100- Primary Other and unspecified hyperlipidemia HTN, goal below 140/90 Unspecified essential hypertension Chest pain, unspecified type documented in this encounter Advance Directives Documents on File Type Date Recorded Patient Director Of Consulting Services Expl anation Advance Directives and Livin g Will 03/01/2017 LIVING WILL Power of Supervisor [employer] 03/01/2017 POWER OF A TTORNEY Care Teams Return Agent Relationship Specialty Start Date End Date Rebecca Arroyo PA-C [address] [place] [address] PCP - General Physician Editing Clerk 03/31/19 documented as of this encounter
[2023-12-07] MEDS: GABAPENTIN 600 MG TAB PO SCH (08:42)
[2023-12-07] MEDS: lisinopril 10 MG TAB PO SCH (08:42)
[2023-12-07] MEDS: PANTOprazole 40 MG TAB PO SCH (08:42)
[2023-12-07] MEDS: VITAMIN B COMPLEX TAB PO SCH (08:42)
[2023-12-07] MEDS ORDERED: MICONAZOLE NITRATE POWDER 85 GM EXT PRN (10:19)
[2023-12-07] MEDS: GABAPENTIN 300 MG CAP PO SCH (12:34)
[2023-12-07] MEDS: METOCLOPRAMIDE HCL 5 MG TABLET PO SCH (16:39)
--- NOTE | 2023-12-07 18:03 | Hospitalist Progress Note ---
Date of Service December 07, 2023 delayed entry date of service noted above Assessment & Plan (1) Chest pain: Plan: per admitting service notes with addendum: CHEST PAIN ACUTE CORONARY SYNDROME RULED OUT This is a 78 y/o female with HTN, dyslipidemia, HALIMA on CPAP, DM2, peripheral neuropathy, gastroparesis, GERD and other history as outlined below who presented to the ED today for evaluation of chest pain. Chest pain is new over the last few days and seems to be brought on by exertion. Pt has multiple risk factors for cardiac disease including HTN, dyslipidemia, and DM2. She also has a significant family history of cardiac disease. Although her initial troponin is negative, she has multiple risk factors and a history suspicious for cardiac ischemia so she was referred for admission for further work-up. - Observe in PCU - Repeat troponin for total of 3 (Q6 hours) - Check ECHO - Consult cardiology for recommendations on additional work-up - will make pt NPO at midnight for potential additional testing - Lipid panel in AM - Repeat EKG in AM and with new/worsening chest pain overnight 12/07 Acute coronary syndrome ruled out EKG no signs of acute ischemia or infarct Troponins negative Echocardiogram no regional wall motion abnormalities Cardiology service consulted, recommend outpatient stress test ELEVATED D-DIMER CT chest negative for PE Doppler ultrasound of the lower extremities: Negative for DVT No signs of infection CT abdomen pelvis: No signs of malignancy Monitor as an outpatient (2) Diabetes mellitus: Plan: Pt reports A1c in Sep <6. She has only been using Trulicity every 10-12 days due to cost, instead of weekly Resume metformin 06/08/2024 in light of receiving IV contrast (3) HTN (hypertension): Plan: Continue outpatient regimen (4) HALIMA (obstructive sleep apnea): Plan: Chronic, stable - CPAP at HS (5) Dyslipidemia: Plan: Chronic - check lipid panel in AM, continue statin (6) Gastroparesis: Plan: Pt currently using Reglan with largest meal of the day due to side effects when uses more frequently - will continue home regimen Plan PCP in 1 week Cardiology follow-up, outpatient stress test in 1 to 2 weeks Admission and Anticipated Discharge Date Admission Date: December 06, 2023 Subjective Follow-up for chest pain, etc. Seen resting in bed, comfortable, not in distress Chest pain has not recurred States she feels fine overall no chest pain, dyspnea, palpitations, dizziness No abdominal pain, nausea vomiting, fevers or chills next No other new symptoms Review of Systems Review of Systems: all noted and negative except for above Physical Exam Physical Exam: General- oriented x 3, not in distress, speaks in sentences with no effort or accessory muscle use Eyes- anicteric Neck- no JVD Lungs- clear breath sounds bilaterally, no rales/wheezes Heart- normal rate, regular rhythm; no murmurs Abdomen- normal bowel sounds, nondistended, soft, nontender Extremities- no pretibial edema, no calf tenderness Neuro- alert, oriented x 3; no gross focal neurologic deficits Skin- warm & dry Results & Data Results & Data Vital Signs (Past 12 Hours) Vital Signs Temp Pulse Pulse Resp BP Pulse Ox O2 Del Method 12/07/23 18:00 36.8 C 73 17 98/62 L 94 12/07/23 16:00 72 12/07/23 15:58 36.8 C 73 17 98/62 L 94 Room Air 12/07/23 10:59 36.9 C 76 18 117/81 94 Room Air 12/07/23 08:00 72 12/07/23 08:00 Room Air 12/07/23 07:44 36.9 C 78 18 129/80 94 Room Air all noted and reviewed including below (1) Chest pain Chest pain type: unspecified Qualified Code(s): R07.9 - Chest pain, unspecified (2) Diabetes mellitus Diabetes mellitus complication detail: with unspecified neuropathy Diabetes mellitus complication status: with neurologic complications Diabetes mellitus nursing home insulin use: without watermaster use Diabetes mellitus type: type 2 Qualified Code(s): E11.40 - Type 2 diabetes mellitus with diabetic neuropathy, unspecified (3) HTN (hypertension) Hypertension type: primary hypertension Qualified Code(s): I10 - Essential (primary) hypertension
--- NOTE | 2023-12-07 19:04 | CT Scan Report ---
CT SCAN OF THE ABDOMEN AND PELVIS WITHOUT IV CONTRAST CLINICAL HISTORY: Elevated d-dimer. Diabetes. Gastroparesis. Atypical chest pain. COMPARISON STUDY: Abdominal CT dated 05/28/2022. TECHNIQUE: CT scan of the abdomen and pelvis is performed from the lung bases to the proximal femora. Images are reviewed in the axial, sagittal, and coronal planes. IV contrast was not administered for this examination as per the referring clinician. Note that the examination was performed in signific antly suboptimal fashion without oral and IV contrast. A dose lowering technique was utilized adherin g to the principles of ALARA. CT DOSE: 1011.77 mGy.cm FINDINGS: Lung bases: The heart is top normal in size noting trace pericardial effusion. There is bibasilar sca rring/atelectasis. No airspace consolidation or pleural effusion is identified. There is a small hiat al hernia. Liver: The unenhanced liver is normal in size, contour, and attenuation. There is no intrahepatic zabrina iary ductal dilatation. Gallbladder: There are layering gallstones without CT evidence of acute cholecystitis. Spleen: Normal in size and attenuation. Pancreas: Unremarkable. Adrenal glands: Unremarkable. Kidneys: The unenhanced kidneys are normal in size and without hydronephrosis. There are no renal denzel culi identified. There is no evidence of contour deforming renal mass lesion. Abdominal vasculature: The abdominal aorta is normal in course and caliber noting moderate atheroscle rotic calcification. Bowel: There is [id number] colonic fecal retention. No bowel obstruction is seen. The appendix is well-visualized and normal. Peritoneum: There is no intraperitoneal free air or abdominal ascites. Lymphadenopathy: None. Pelvic viscera: The bladder, uterus, and adnexa are normal as visualized. Skeletal structures: The skeletal structures are osteopenic. Degenerative and postsurgical changes no shanel in the lumbar spine. Degenerative sclerosis is seen in the pubic symphysis. No lytic or blastic l esions are seen. IMPRESSION: 1. No acute infectious or inflammatory findings are identified in the abdomen or pelvis. 2. Cholelithiasis. 3. Hiatal hernia. 4. Additional findings as above. ACT 112: Negative or not required by law. Electronically signed by: To Nicole M.D. 12/07/2023 7:02 PM
--- NOTE | 2023-12-07 19:33 | Discharge Summary ---
Discharge Summary Date of Service December 07, 2023 Notes For Next Care Provider Medication Changes From Visit None Admission HPI Per Admitting Provider This is a 78 y/o female with HTN, dyslipidemia, HALIMA on CPAP, DM2, peripheral neuropathy, gastroparesis, GERD and other history as outlined below who presented to the ED today for evaluation of chest pain. Two days ago, pt was agustina veling her driveway and towards the end, she developed an aching pain in her left chest and left upper back. She finished shoveling but then had to rest. The pain lasted 2-3 hours before resolving. Yesterday, she had no chest pain. This morning, she took out her trash and noticed that she again developed the aching in her left chest and left upper back. Unlike two days ago, this discomfort did not go away so she contacted her PCP who referred her to the ED for additional evaluation. Currently, she rates the pain as 3/10. It does not seem positional. She has not noticed a rash in the area. She denies associated palpitations, dyspnea, lightheadedness, syncope, vomiting. She has chronic intermittent issues with nausea due to gastroparesis, which is unchanged from baseline. She had a stress test in 2013 that was negative for ischemia. She does follow with Dr. Tinajero for hypertension with last visit 2-3 months ago, was doing well at that time. She has a family history of heart disease - father of an [place] at age 65, all four grandparents had heart disease/ from an [place]. No heart disease in mother. No recent illness. She walked two miles over the weekend without any chest pain or unusual dyspnea. She has chronic back pain, which is unchanged. She previously used medical marijuana for her back issues with some relief, but she is not currently taking this and has not for the last six months. Admission Exam Per Admitting Provider General: awake, alert, NAD HEENT: no scleral icterus, moist mucus membranes Neck: trachea midline Heart: RRR, no M/G/R; mild left chest tenderness on sternal border, under left breast Lungs: CTA bilaterally, no W/R/R Abdomen: soft, NT, +BS Extremities: distal pulses intact and equal, no significant edema Skin: no jaundice Neurologic: Ox3, moving all extremities, no focal deficits, no dysarthria or confusion Principal Dx & Hospital Course #1 = Principal Diagnosis (1) Chest pain: per admitting service notes with addendum: CHEST PAIN ACUTE CORONARY SYNDROME RULED OUT This is a 78 y/o female with HTN, dyslipidemia, HALIMA on CPAP, DM2, peripheral neuropathy, gastroparesis, GERD and other history as outlined below who presented to the ED today for evaluation of chest pain. Chest pain is new over the last few days and seems to be brought on by exertion. Pt has multiple risk factors for cardiac disease including HTN, dyslipidemia, and DM2. She also has a significant family history of cardiac disease. Although her initial troponin is negative, she has multiple risk factors and a history suspicious for cardiac ischemia so she was referred for admission for further work-up. - Observe in PCU - Repeat troponin for total of 3 (Q6 hours) - Check ECHO - Consult cardiology for recommendations on additional work-up - will make pt NPO at midnight for potential additional testing - Lipid panel in AM - Repeat EKG in AM and with new/worsening chest pain overnight 12/07 Acute coronary syndrome ruled out EKG no signs of acute ischemia or infarct Troponins negative Echocardiogram no regional wall motion abnormalities Cardiology service consulted, recommend outpatient stress test ELEVATED D-DIMER CT chest negative for PE Doppler ultrasound of the lower extremities: Negative for acute DVT, Trace chronic thrombus is seen in the left calf within one of the posterior tibial veins. No signs of infection CT abdomen pelvis: No signs of malignancy, small hiatal hernia, cholelithiasis Continue appropriate cancer screening as outpatient further work up, monitoring as outpatient (2) Diabetes mellitus: Pt reports A1c in Nov <6. She has only been using Trulicity every 10-12 days due to cost, instead of weekly Resume metformin 06/08/2024 in light of receiving IV contrast (3) HTN (hypertension): Continue outpatient regimen (4) HALIMA (obstructive sleep apnea): Chronic, stable - CPAP at HS (5) Dyslipidemia: Chronic - check lipid panel in AM, continue statin (6) Gastroparesis: Pt currently using Reglan with largest meal of the day due to side effects when uses more frequently - will continue home regimen Plan PCP in 1 week Cardiology follow-up, outpatient stress test in 1 to 2 weeks Discharge Exam General- oriented x 3, not in distress, speaks in sentences with no effort or accessory muscle use Eyes- anicteric Neck- no JVD Lungs- clear breath sounds bilaterally, no crackles or wheezing Heart- normal rate, regular rhythm; no murmurs Abdomen- normal bowel sounds, nondistended, soft, nontender Extremities- no pretibial edema, no calf tenderness Neuro- alert, oriented x 3; no gross focal neurologic deficits Skin- warm & dry Updated Medication List Medication Instructions Recorded Confirmed Type aspirin 81 mg tablet,delayed 81 mg PO HS 11/09/19 12/05/23 History release (Mars Low Dose Aspirin) atorvastatin 10 mg tablet 10 mg PO QPM 11/09/19 12/05/23 History lisinopril 10 mg tablet 10 mg PO QAM 11/09/19 12/05/23 History valacyclovir 500 mg tablet 500 mg PO Q OTHER DAY genital 11/09/19 12/05/23 History (Valtrex) herpes vit C 250 mg-vit E 90 mg-zinc 40 1 tab PO QAM 11/09/19 12/05/23 History mg-copper 1 tv-foaekt-slhsgo capsule (PreserVision AREDS-2) vitamin B complex 1 tab PO QAM 11/09/19 12/05/23 History gabapentin 300 mg capsule See Rx Instructions .Route .COMPLEX 09/06/21 12/05/23 History metoclopramide HCl 5 mg tablet 5 mg PO QDD 09/06/21 12/05/23 History (Reglan) polyethylene glycol 3350 17 gram 17 g PO 3XWK 09/06/21 12/05/23 History oral powder packet (Miralax) biotin 1000 1,000 mcg PO DAILY 09/04/23 12/05/23 History coQ10 (ubiquinol) 100 mg capsule 100 mg PO Q OTHER DAY 09/04/23 12/05/23 History (Qunol Quan CoQ10) dulaglutide 0.75 mg/0.5 mL 0.75 mg subcut Q10D 09/04/23 12/05/23 History subcutaneous pen injector (Trulicity) ferrous sulfate 142 mg (45 mg 142 mg PO QPM 09/04/23 12/05/23 History iron) tablet,extended release omega 7-umn-ivz-fish oil 1,000 mg 1 cap PO TID 09/04/23 12/05/23 History (120 mg-180 mg) capsule (Fish Oil) ondansetron HCl 4 mg tablet 4 mg PO Q8H PRN Nausea 09/04/23 12/05/23 History pantoprazole 20 mg tablet,delayed 20 mg PO DAILY 09/04/23 12/05/23 History release metformin 500 mg tablet,extended 500 mg PO QDD 12/05/23 12/05/23 History release 24 hr Hospital Stay Data Consultations 12/05/23 17:20 ED Decision to Admit Stat 12/05/23 19:38 Consult Cardiology Routine Diagnostic Imagining Performed Laboratory Results WBC 6.23 K/ul (4.8-10.8) 12/05/23 14:50 RBC 4.23 M/uL (4.20-5.40) 12/05/23 14:50 Hgb 13.6 g/dl (12.0-16.0) 12/05/23 14:50 Hct 39.8 % (37.0-47.0) 12/05/23 14:50 MCV 94.1 fL (80.0-100.0) 12/05/23 14:50 MCH 32.2 pg (25.0-34.0) 12/05/23 14:50 MCHC 34.2 g/dL (32.0-36.0) 12/05/23 14:50 RDW Std Deviation 41.6 fL (36.4-46.3) 12/05/23 14:50 RDW Coeff of Nam 12.2 % (11.5-14.5) 12/05/23 14:50 Plt Count 188 K/uL (130-400) 12/05/23 14:50 MPV 9.3 fL (9.4-12.4) L 12/05/23 14:50 Immature Gran % (Auto) 0.3 % 12/05/23 14:50 Neut % (Auto) 47.1 % 12/05/23 14:50 Lymph % (Auto) 34.5 % 12/05/23 14:50 [place] % (Auto) 15.2 % 12/05/23 14:50 Eos % (Auto) 2.4 % 12/05/23 14:50 Baso % (Auto) 0.5 % 12/05/23 14:50 Neut # (Auto) 2.93 K/uL (1.40-6.50) 12/05/23 14:50 Lymph # (Auto) 2.15 K/uL (1.20-3.40) 12/05/23 14:50 [place] # (Auto) 0.95 K/uL (0.11-0.59) H 12/05/23 14:50 Eos # (Auto) 0.15 K/uL (0.00-0.50) 12/05/23 14:50 Baso # (Auto) 0.03 K/uL (0.00-0.20) 12/05/23 14:50 Immature Gran # (Auto) 0.02 K/uL (0.01-0.20) 12/05/23 14:50 PT 11.2 Seconds (9.0-12.0) 12/05/23 14:50 INR 1.0 (0.9-1.1) 12/05/23 14:50 APTT 26 Seconds (21-31) 12/05/23 14:50 PTT Ratio 0.9 12/05/23 14:50 D-Dimer 3730 ug/L FEU (0-500) H* 12/06/23 15:30 Sodium 136 mmol/L (136-145) 12/05/23 14:50 Potassium 4.0 mmol/L (3.5-5.1) 12/05/23 14:50 Chloride 102 mmol/L (98-107) 12/05/23 14:50 Carbon Dioxide 26 mmol/L (21-32) 12/05/23 14:50 Anion Gap 8 (3-11) 12/05/23 14:50 BUN 14 mg/dl (6-23) 12/05/23 14:50 Creatinine 0.65 mg/dl (0.6-1.2) 12/05/23 14:50 Est Cr Clr Drug Dosing Not Reportable 12/05/23 14:50 Est GFR ( Amer) 99.3 ml/min 12/05/23 14:50 Est GFR (Non-Af Amer) 85.6 ml/min 12/05/23 14:50 BUN/Creatinine Ratio 21.5 (10-20) H 12/05/23 14:50 Glucose 87 mg/dl (70-99(Fasting)) 12/05/23 14:50 Calcium 9.5 mg/dl (8.6-10.3) 12/05/23 14:50 Total Bilirubin 0.9 mg/dl (0.2-1.0) 12/05/23 14:50 AST 18 U/L (13-39) 12/05/23 14:50 ALT 14 U/L (7-52) 12/05/23 14:50 Alkaline Phosphatase 66 U/L (34-104) 12/05/23 14:50 Troponin I High Sens 3.7 pg/ml (0-14) 12/06/23 03:26 B-Natriuretic Peptide 11 pg/ml (0-100) 12/05/23 20:49 Total Protein 7.4 gm/dl (6.0-8.3) 12/05/23 14:50 Albumin 4.4 gm/dl (3.4-5.0) 12/05/23 14:50 Globulin 3.0 gm/dl (2.5-4.0) 12/05/23 14:50 Albumin/Globulin Ratio 1.5 (0.9-2) 12/05/23 14:50 Triglycerides 136 mg/dl (0-150) 12/06/23 03:26 Cholesterol 111 mg/dl (0-200) 12/06/23 03:26 LDL Cholesterol, Calc 41 mg/dl 12/06/23 03:26 VLDL Cholesterol, Calc 27 mg/dl (0-30) 12/06/23 03:26 HDL Cholesterol 43 mg/dl 12/06/23 03:26 Cholesterol/HDL Ratio 2.6 (0-5) 12/06/23 03:26 Urine Color Yellow 12/06/23 21:08 Urine Appearance Clear (Clear) 12/06/23 21:08 Urine pH 6.0 (4.5-7.5) 12/06/23 21:08 Ur Specific [place] 1.042 (1.000-1.030) H 12/06/23 21:08 Urine Protein Negative (Negative) 12/06/23 21:08 Urine Glucose (UA) Negative (Negative) 12/06/23 21:08 Urine Ketones Negative (Negative) 12/06/23 21:08 Urine Blood 1+ (Negative) H 12/06/23 21:08 Urine Nitrite Negative (Negative) 12/06/23 21:08 Urine Bilirubin Negative (Negative) 12/06/23 21:08 Urine Urobilinogen Negative (Negative) 12/06/23 21:08 Ur Leukocyte Esterase Negative (Negative) 12/06/23 21:08 Urine WBC (Auto) 1-5 /hpf (0-5) 12/06/23 21:08 Urine RBC (Auto) 0-4 /hpf (0-4) 12/06/23 21:08 U Hyaline Cast (Auto) 0 /lpf (0-5) 12/06/23 21:08 U Epithel Cells (Auto) 5-10 /lpf (0-5) H 12/06/23 21:08 Urine Bacteria (Auto) Negative (Negative) 12/06/23 21:08 Impressions Chest X-Ray 12/05/23 14:36 XR chest 1V not portable HISTORY: Chest pain, nonspecific COMPARISON: Chest 09/08/2021. FINDINGS: No pneumothorax. No pleural effusions. The cardiac silhouette remains mildly enlarged. No new focal lung consolidations to suggest a pneumonia. No evidence for pulmonary edema. Bibasilar interstitial thickening persists. Lumbar spinal fusion hardware is partially visualized. IMPRESSION: Cardiomegaly and chronic bibasilar interstitial thickening again noted. Otherwise, no acute process within the chest. ACT 112: Negative or not required by law. Electronically signed by: Monty Wilkinson M.D. 12/05/2023 3:16 PM Chest CTA 12/06/23 16:33 CHEST CTA for PULMONARY ARTERIES CT DOSE: 557.75 mGy.cm HISTORY: Atypical chest pain, r/o PE TECHNIQUE: Multiaxial CT images of the chest were performed following the intravenous administration of contrast to evaluate the pulmonary arteries. 3D/Maximal intensity projection images were also obtained. Sagittal and coronal reformations were also reviewed. A dose lowering technique was utilized adhering to the principles of ALARA. COMPARISON STUDY: Chest CT 11/13/2015. FINDINGS: Limited views the upper abdomen demonstrate normal liver, spleen, and adrenal glands. There is a small hiatus hernia. Normal caliber esophagus. The thyroid gland enhances normally. No mediastinal or hilar lymphadenopathy. The heart is mildly enlarged. No pleural or pericardial effusions. Small calcification adjacent to the liver. No acute fractures identified. The central airways are patent. No pneumothorax. Stable 4 mm subpleural nodule within the left upper lobe on image 124 and a stable 5 mm subpleural nodule in the right minor fissure on image 100. These are considered to be benign given the long- term stability. No new or suspicious pulmonary nodules identified. Chronic basilar predominant interstitial thickening has slightly progressed. Otherwise, no new focal lung consolidations to suggest a pneumonia. No evidence for pulmonary edema. Normal caliber thoracic aorta with no evidence for a dissection. Questionable filling defect within a lingular segmental pulmonary artery on image 88 is likely due to the motion artifact. Otherwise, no definite filling defects within the pulmonary arteries to suggest a pulmonary embolus. IMPRESSION: 1. No definite filling defects within the pulmonary arteries to suggest a pulmonary embolus. 2. Mild cardiomegaly. 3. Mild chronic interstitial thickening. 4. Small hiatus hernia. ACT 112: Negative or not required by law. Electronically signed by: Monty Wilkinson M.D. 12/06/2023 5:29 PM Venous Doppler Study 12/06/23 16:33 ULTRASOUND BILATERAL LOWER EXTREMITY VENOUS CLINICAL HISTORY: Elevated d-dimer COMPARISON STUDY: Right lower extremity venous ultrasound dated 02/01/2023 TECHNIQUE: Real-time, grayscale, and color Doppler sonography of the deep veins of the right and left lower extremity was performed from the inguinal crease to the calf. Compression and augmentation were utilized. FINDINGS: Right lower extremity: There is no sonographic evidence of deep venous thrombosis in the right lower extremity. The common femoral, superficial femoral, and popliteal veins are patent and normally compressible. The greater saphenous vein and the profunda femoris vein at the junction with the common femoral vein are clear. The visualized calf veins are patent. Left lower extremity: There is trace chronic thrombus in the left calf within one of the posterior tibial veins. There is no sonographic evidence of acute deep venous thrombosis in the left lower extremity. The remaining calf vessels are clear. The common femoral, superficial femoral, and popliteal veins are patent and normally compressible. The greater saphenous vein and the profunda femoris vein at the junction with the common femoral vein are clear. IMPRESSION: 1. There is no sonographic evidence of acute deep venous thrombosis in the right or left lower extremity. 2. Trace chronic thrombus is seen in the left calf within one of the posterior tibial veins. ACT 112: Negative or not required by law. Electronically signed by: To Nicole M.D. 12/06/2023 7:13 PM Abdomen/Pelvis CT 12/07/23 13:27 CT SCAN OF THE ABDOMEN AND PELVIS WITHOUT IV CONTRAST CLINICAL HISTORY: Elevated d-dimer. Diabetes. Gastroparesis. Atypical chest pain. COMPARISON STUDY: Abdominal CT dated 05/28/2022. TECHNIQUE: CT scan of the abdomen and pelvis is performed from the lung bases to the proximal femora. Images are reviewed in the axial, sagittal, and coronal planes. IV contrast was not administered for this examination as per the referring clinician. Note that the examination was performed in significantly suboptimal fashion without oral and IV contrast. A dose lowering technique was utilized adhering to the principles of ALARA. CT DOSE: 1011.77 mGy.cm FINDINGS: Lung bases: The heart is top normal in size noting trace pericardial effusion. There is bibasilar scarring/atelectasis. No airspace consolidation or pleural effusion is identified. There is a small hiatal hernia. Liver: The unenhanced liver is normal in size, contour, and attenuation. There is no intrahepatic biliary ductal dilatation. Gallbladder: There are layering gallstones without CT evidence of acute cholecystitis. Spleen: Normal in size and attenuation. Pancreas: Unremarkable. Adrenal glands: Unremarkable. Kidneys: The unenhanced kidneys are normal in size and without hydronephrosis. There are no renal calculi identified. There is no evidence of contour deforming renal mass lesion. Abdominal vasculature: The abdominal aorta is normal in course and caliber noting moderate atherosclerotic calcification. Bowel: There is wrof-sm-cimsfshp colonic fecal retention. No bowel obstruction is seen. The appendix is well-visualized and normal. Peritoneum: There is no intraperitoneal free air or abdominal ascites. Lymphadenopathy: None. Pelvic viscera: The bladder, uterus, and adnexa are normal as visualized. Skeletal structures: The skeletal structures are osteopenic. Degenerative and postsurgical changes noted in the lumbar spine. Degenerative sclerosis is seen in the pubic symphysis. No lytic or blastic lesions are seen. IMPRESSION: 1. No acute infectious or inflammatory findings are identified in the abdomen or pelvis. 2. Cholelithiasis. 3. Hiatal hernia. 4. Additional findings as above. ACT 112: Negative or not required by law. Electronically signed by: To Nicole M.D. 12/07/2023 7:02 PM Pending Results Patient Have Any Pending Studies at Discharge: No Discharge Instructions Given to Patient (Per Discharging Provider) SINCE YOU H AVE RECEIVED IV CONTRAST FOR CT SCAN, PLEASE HOLD METFORMIN TO PREVENT KIDNEY INJURY. RESUME TAKING METFORMIN ON SATURDAY DECEMBER 09, 2023. DRINK PLENTY OF WATER. PLEASE CALL YOUR PRIMARY CARE PHYSICIAN OR RETURN TO THE ER IF WITH WORSENING OF SYMPTOMS, INCLUDING CHEST PAIN, SHORTNESS OF BREATH, PALPITATIONS, DIZZINESS, ETC FOLLOW UP WITH PRIMARY CARE PHYSICIAN IN 1 WEEK. Total Time Total Time Spent Total Time Spent (In Minutes): >30 minutes
== END 2023-12-07 18:28 | disposition home or self-care (01) | DRG 313 ==
LOC: ED 14:26 → EDINP 14:26 → SUATTDRO 18:08 → 2E 19:38

== ENCOUNTER 2025-05-31 06:03 | Inpatient (IN) ==
--- NOTE | 2025-05-04 14:57 | PAT Medication Instructions ---
Medication Instructions Date of Service May 04, 2025 Home Medications aspirin 81 mg tablet,delayed release (Mars Low Dose Aspirin) 81 mg PO HS atorvastatin 10 mg tablet 10 mg PO QPM lisinopril 10 mg tablet 10 mg PO QAM valacyclovir 500 mg tablet (Valtrex) 500 mg PO Q OTHER DAY genital herpes vit C 250 mg-vit E 90 mg-zinc 40 mg-copper 1 bk-refsxn-rivsss capsule (PreserVision AREDS-2) 1 tab PO QAM vitamin B complex 1 tab PO QAM gabapentin 300 mg capsule 600 mg PO UD coQ10 (ubiquinol) 100 mg capsule (Qunol Quan CoQ10) 100 mg PO Q OTHER DAY dulaglutide 0.75 mg/0.5 mL subcutaneous pen injector (Trulicity) 0.75 mg subcut UD ferrous sulfate 142 mg (45 mg iron) tablet,extended release 142 mg PO QPM omega 1-rvg-wtl-fish oil 1,000 mg (120 mg-180 mg) capsule (Fish Oil) 1 cap PO TID ondansetron HCl 4 mg tablet 4 mg PO Q8H PRN Nausea pantoprazole 20 mg tablet,delayed release 20 mg PO QAM metformin 500 mg tablet,extended release 24 hr 500 mg PO BID Lactobacillus acidophilus 250 million cell capsule (Probiotic Acidophilus) 1,000 mmu cells PO Q OTHER DAY cholecalciferol (vitamin D3) 50 mcg (2,000 unit) capsule 50 mcg PO QAM magnesium oxide 500 mg PO QPM zinc acetate 25 mg (zinc) capsule (Galzin) 30 mg PO QPM cholestyramine (with sugar) 4 gram oral powder 1 ea PO DAILY PRN Diarrhea bisacodyl 5 mg tablet,delayed release (Dulcolax (bisacodyl)) 5 mg PO DAILY PRN Constipation De-3 [place] 3 1 tab PO TID Medical Thc 1 unit PO DAILY PRN Pain calcium 315 mg (as citrate)-vitamin D3 5 mcg (200 unit) tablet (Calcium Citrate + D) 1 tab PO QPM glucosamine sulf dipot chlr,msm,chond 550 mg-C 30 mg-mary 1 mg capsule (Glucosamine Chondroitin) 1 cap PO BID fzehplobleip-Yz-gdnd-minerals 27 mg-0.4 mg tablet 1 tab PO DAILY Continue as directed valacyclovir 500 mg tablet (Valtrex) 500 mg PO Q OTHER DAY genital herpes (if needed) ASK your prescriber and surgeon aspirin 81 mg tablet,delayed release (Mars Low Dose Aspirin) 81 mg PO HS STOP taking 2 weeks before surgery (or as soon as possible if surgery is within 2 weeks) vit C 250 mg-vit E 90 mg-zinc 40 mg-copper 1 nb-opzafj-dyolsr capsule (PreserVision AREDS-2) 1 tab PO QAM coQ10 (ubiquinol) 100 mg capsule (Qunol Quan CoQ10) 100 mg PO Q OTHER DAY omega 5-yeu-evb-fish oil 1,000 mg (120 mg-180 mg) capsule (Fish Oil) 1 cap PO TID De-3 [place] 3 1 tab PO TID glucosamine sulf dipot chlr,msm,chond 550 mg-C 30 mg-mary 1 mg capsule (Glucosamine Chondroitin) 1 cap PO BID STOP taking 48 hours before surgery cholestyramine (with sugar) 4 gram oral powder 1 ea PO DAILY PRN Diarrhea STOP 7 days prior to surgery dulaglutide 0.75 mg/0.5 mL [facility] 0.75 mg subcut UD DO NOT take the morning of surgery lisinopril 10 mg tablet 10 mg PO QAM vitamin B complex 1 tab PO QAM metformin 500 mg tablet,extended release 24 hr 500 mg PO BID Lactobacillus acidophilus 250 million cell capsule (Probiotic Acidophilus) 1,000 mmu cells PO Q OTHER DAY cholecalciferol (vitamin D3) 50 mcg (2,000 unit) capsule 50 mcg PO QAM bisacodyl 5 mg tablet,delayed release (Dulcolax (bisacodyl)) 5 mg PO DAILY PRN Constipation calcium 315 mg (as citrate)-vitamin D3 5 mcg (200 unit) tablet (Calcium Citrate + D) 1 tab PO QPM mxatxqaissyu-Og-dkwb-minerals 27 mg-0.4 mg tablet 1 tab PO DAILY Medical Thc 1 unit PO DAILY PRN Pain Take morning of surgery With a small sip of water, OTHERWISE NOTHING TO EAT OR DRINK AFTER MIDNIGHT: ondansetron HCl 4 mg tablet 4 mg PO Q8H PRN Nausea (if needed) pantoprazole 20 mg tablet,delayed release 20 mg PO QAM gabapentin 300 mg capsule 600 mg PO UD Take evening before surgery atorvastatin 10 mg tablet 10 mg PO QPM gabapentin 300 mg capsule 600 mg PO UD ferrous sulfate 142 mg (45 mg iron) tablet,extended release 142 mg PO QPM ondansetron HCl 4 mg tablet 4 mg PO Q8H PRN Nausea (if needed) metformin 500 mg tablet,extended release 24 hr 500 mg PO BID magnesium oxide 500 mg PO QPM zinc acetate 25 mg (zinc) capsule (Galzin) 30 mg PO QPM bisacodyl 5 mg tablet,delayed release (Dulcolax (bisacodyl)) 5 mg PO DAILY PRN Constipation (if needed) Medical Thc 1 unit PO DAILY PRN Pain (if needed) calcium 315 mg (as citrate)-vitamin D3 5 mcg (200 unit) tablet (Calcium Citrate + D) 1 tab PO QPM Other Notes If you have any questions please call us at [phone] or [phone] or [phone] or [phone]
--- NOTE | 2025-05-07 12:56 | Anesthesiology Consultation ---
Date of Service May 07, 2025 Assessment & Plan (1) Encounter for pre-operative examination: - Check BSG DOS - Infectious disease screening: Per assessment on 05/07/25- No known recent infectious disease contacts or current infectious disease symptoms. - GLP-1 medication instructions: Patient informed by PAT to stop 7 days prior to surgery- voiced understanding. - Cardiology visit (01/21/25): "Chest Wall Pain (Costochondritis).. Intermittent, sharp, and diffused chest pain localized to the mid-chest and left side, reproducible on palpation of the sternum, suggesting costochondritis rather than angina. No dyspnea or nausea. EKG showed normal sinus rhythm with no new changes. Pain likely due to rib movement, exacerbated by altered gait from back pain.. Continue meloxicam.. Take acetaminophen as needed for additional pain relief.. Avoid ibuprofen while on meloxicam.. Severe pain radiating down the right leg, impacting function. Currently undergoing physical therapy with some relief. Planning for spine surgery.. Preoperative assessment indicates no new cardiac concerns. Nuclear stress test from November 2023 is reassuring with no new cardiac symptoms.. No additional cardiology follow-up prior to surgery unless symptoms change.. Carotid duplex in May 2024 showed calcified plaque with less than 50% stenosis. No stroke-like symptoms. Goal is to keep LDL cholesterol less than 55 mg/dL. Repeat carotid duplex scheduled for May 2025.. Blood pressure today was 118/70 mmHg, indicating well-controlled hypertension.. Follow-up.. Schedule follow-up appointment in one year" - Hx "swallow syncope": Three episodes in 2014. Cardiac workup included echo, event monitor and tilt-table test, all negative. Determined to be "swallow syncope," as episodes were preceded by patient ingesting hot liquid. Follows with [facility] ([facility] in [place], Dr. Cristiano Luna). 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 No episodes since 2015. Patient had L3-S1 decompression/fusion 10/23/21 under GA at [facility] without noted issues. - Hx anesthesia reaction/patient concern: Post-op brain fog specifically after 2019 right ankle surgery. She states that when "pre-sedation"/medication is avoiding prior to anesthesia induction, she does better postoperatively and requests not to be given medication/"being awake" as long as possible until anesthesia induction. - Awaiting upcoming carotid imaging ([facility], 05/10). Patient otherwise acceptable risk for surgery. Chart Review Chart Review: Patient seen in Pre Admission Testing Teaching & Discussion Pre-Anesthesia Teaching/Discussion Notes: Instructed NPO after midnight before surgery,except medications with 15 cc of water. Medication instructions provided according to the PAT guidelines. History Surgery Operation Date: 05/31/25 07:30 Proposed Procedures p L3 Lateral Lumbar Interbody Fusion, L2-L3 Decompression and Fusion Instrumentation, Remove Hardware L3,L4,L5,S1, with Spinal Cord Monitoring - Serge Calvo MD Height/Weight Height: 5 ft 0.5 in Weight: 77.2 kg Allergies Allergy/AdvReac Type Severity Reaction Status Date / Time nickel Allergy Intermediate Rash/bleedi Verified 05/06/25 11:29 ng Medications Home Medications Medication Instructions Recorded Confirmed Last Taken aspirin 81 mg tablet,delayed 81 mg PO HS 11/09/19 05/06/25 12/04/23 release (Mars Low Dose Aspirin) atorvastatin 10 mg tablet 10 mg PO QPM 11/09/19 05/06/25 12/05/23 lisinopril 10 mg tablet 10 mg PO QAM 11/09/19 05/06/25 12/05/23 valacyclovir 500 mg tablet 500 mg PO Q OTHER DAY genital 11/09/19 05/06/25 10/21/21 11:00 (Valtrex) herpes vit C 250 mg-vit E 90 mg-zinc 40 1 tab PO QAM 11/09/19 05/06/25 12/05/23 mg-copper 1 ud-zpymqz-srocfi capsule (PreserVision AREDS-2) vitamin B complex 1 tab PO QAM 11/09/19 05/06/25 12/05/23 gabapentin 300 mg capsule 600 mg PO UD 09/06/21 05/06/25 12/05/23 coQ10 (ubiquinol) 100 mg capsule 100 mg PO Q OTHER DAY 09/04/23 05/06/25 Unknown (Qunol Quan CoQ10) dulaglutide 0.75 mg/0.5 mL 0.75 mg subcut UD 09/04/23 05/06/25 12/05/23 subcutaneous pen injector (Trulicity) ferrous sulfate 142 mg (45 mg 142 mg PO QPM 09/04/23 05/06/25 12/04/23 iron) tablet,extended release omega 1-jae-kpj-fish oil 1,000 mg 1 cap PO TID 09/04/23 05/06/25 12/05/23 (120 mg-180 mg) capsule (Fish Oil) ondansetron HCl 4 mg tablet 4 mg PO Q8H PRN Nausea 09/04/23 05/06/25 Unknown pantoprazole 20 mg tablet,delayed 20 mg PO QAM 09/04/23 05/06/25 12/05/23 release metformin 500 mg tablet,extended 500 mg PO BID 12/05/23 05/06/25 12/04/23 release 24 hr Lactobacillus acidophilus 250 1,000 mmu cells PO Q OTHER DAY 01/01/25 05/06/25 Unknown million cell capsule (Probiotic Acidophilus) cholecalciferol (vitamin D3) 50 50 mcg PO QAM 01/01/25 05/06/25 Unknown mcg (2,000 unit) capsule magnesium oxide 500 mg PO QPM 01/01/25 05/06/25 Unknown zinc acetate 25 mg (zinc) capsule 30 mg PO QPM 01/01/25 05/06/25 Unknown (Galzin) cholestyramine (with sugar) 4 gram 1 ea PO DAILY PRN Diarrhea 02/26/25 05/06/25 Unknown oral powder bisacodyl 5 mg tablet,delayed 5 mg PO DAILY PRN Constipation 03/23/25 05/06/25 Unknown release (Dulcolax (bisacodyl)) De-3 New Point 3 1 tab PO TID 04/30/25 05/06/25 Unknown Medical Thc 1 unit PO DAILY PRN Pain 04/30/25 05/06/25 Unknown calcium 315 mg (as 1 tab PO QPM 04/30/25 05/06/25 Unknown citrate)-vitamin D3 5 mcg (200 unit) tablet (Calcium Citrate + D) glucosamine sulf dipot 1 cap PO BID 04/30/25 05/06/25 Unknown chlr,msm,chond 550 mg-C 30 mg-mary 1 mg capsule (Glucosamine Chondroitin) kfqtegafddkp-Ks-wgnq-minerals 27 1 tab PO DAILY 04/30/25 05/06/25 Unknown mg-0.4 mg tablet Past Medical History Medical History Anxiety Controlled without meds Carotid artery plaque Depression Controlled without meds Diabetes mellitus, type 2 Currently on trulicity (states may start ozempic due to insurance issues) Dry eye syndrome "Severe" Essential tremor "Whole body" tremors after 2020 back surgery Follows with [facility]/Dr. Marysol Bruce Gastroparesis (2019) GERD (gastroesophageal reflux disease) History of anemia (2020) Post-op after back surgery Hx of hematuria (02/2025) Follows with [facility] [place] Hx of migraines Resolved after menopause Hyperlipidemia Hypertension Lumbar spinal stenosis due to adjacent segment disease after fusion procedure Macular degeneration "Stable" x 20 years Neurogenic claudication due to lumbar spinal stenosis Neuropathy of foot R > L foot/leg numbness/pain Osteoporosis will start new med (evinty) after surgery Overactive bladder Gets botox treatments Postlaminectomy syndrome of lumbosacral region RLS (restless legs syndrome) Sacroiliac joint pain Schatzki's ring Sleep apnea CPAP (compliant) Syncope Three episodes in 2014. Cardiac workup included echo, event monitor and tilt- table test, all negative. Determined to be "swallow syncope," as episodes were preceded by patient ingesting hot liquid. Follows with [facility] ([facility] in [place], Dr. Cristiano Greenfield). 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 No episodes since 2015. Exercise / Class Metabolic Activity II 4-5 Yardwork/Stairs/Walk up hill (one FS: No CP, no SOB) Past Family History Family History Unknown Heart disease Lymphoma Father Hypertension Other No family history of adverse response to anesthesia Past Surgical History Surgical History H/O breast biopsy (1994) L breast, metal marker remains H/O release of tendon (2012) right wrist H/O tubal ligation History of anesthesia reaction Post-op brain fog specifically after 2019 right ankle surgery. She states that when "pre-sedation"/medication is avoiding prior to anesthesia induction, she does better postoperatively and requests not to be given medication/"being awake" as long as possible until anesthesia induction. History of ankle surgery (12/08/19) Right ankle fusion: Grade view 2, MAC#3, ETT 7.5 at [facility] History of back surgery L3-S1 decompression/fusion (10/23/21): Grade 2 view, MAC#3, ETT 7.0 at [facility] History of cardiac cath (2008) No stents History of carpal tunnel release (10/2000) Right History of colonoscopy History of endoscopic sinus surgery History of esophageal dilatation History of esophagogastroduodenoscopy (EGD) History of open reduction and internal fixation (ORIF) procedure (10/2000) right wrist, due to fracture- had external fixator and pins- returned to surgery for carpal tunnel release shortly after History of tonsillectomy and adenoidectomy (1951) History of tooth extraction with implants Hx laparoscopic cholecystectomy (12/2023) [facility] Hx of cataract extraction R/L Hx of cystoscopy (03/2025) due to hematuria S/P Botox injection Bladder (for urinary incontinence) Past Anesthesia History Other * Patient: Patient reports ""Whole body" tremors after 2020 back surgery. Indicates that she was subsequently diagnosed with essential tremors and likely had degree of this prior to 2020 postop reaction. Patient also notes problems with post-op brain fog specifically after 2019 right ankle surgery. She states that when "pre-sedation"/medication is avoiding prior to anesthesia induction, she does better postoperatively and requests not to be given medication/"being awake" as long as possible until anesthesia induction. * Mother: post-op worsening of baseline dementia post-op * Daughter: PONV History of PONV No Hx of PONV and No Hx of Motion Sickness Social History Smoking Status: Never smoker Do You Dip or Chew Tobacco: No Hx Alcohol Use: Yes Alcohol type: beer, wine and hard liquor alcohol intake frequency: holidays/special occasions only (Very rare) Hx Substance Use: Yes substance use type: marijuana (medical marijuana (daily; gummies, tincture)) Review of Systems Periodic chest wall pain unchanged since previous cardiology visit 12/2024. Patient denies shortness of breath, dyspnea on exertion, fever, chills, cough, wheezing. Physical Exam Vital Signs BP 106/68 P 77 TEMP 98.2 SP02 96%RA RESP 16 Physical Full cervical extension range of motion. Full TMJ range of motion. TMD 3 finger breaths Mallampati Score I Dentition: intact, several implants (sides) Lungs: clear throughout to auscultation Cardiac: regular rate and rhythm, no murmurs noted Spine: normal Carotid arteries: negative bruit Extremities: non-pitting LE edema Lab Results Anesthesia Preop Results Results Anesthesia Widget: WBC 6.52 K/ul (4.8-10.8) 05/07/25 Hgb 12.5 g/dl (12.0-16.0) 05/07/25 Hct 35.9 % (37.0-47.0) L 05/07/25 Plt 143 K/uL (130-400) 05/07/25 Na 135 mmol/L (136-145) L 05/07/25 K 4.0 mmol/L (3.5-5.1) 05/07/25 Cl 101 mmol/L (98-107) 05/07/25 CO2 26 mmol/L (21-32) 05/07/25 BUN 14 mg/dl (6-23) 05/07/25 Creat 0.73 mg/dl (0.6-1.2) 05/07/25 Glucose Level 160 mg/dl (70-99(Fasting)) H 05/07/25 PT 11.0 Seconds (9.0-12.0) 05/07/25 PTT 27 Seconds (21-31) 05/07/25 INR 1.0 (0.9-1.1) 05/07/25 HA1c 5.5 % (4.5-5.6) 05/07/25 Blood Type O Positive 05/07/25 Antibody Screen NEGATIVE 05/07/25 Testing Electrocardiogram Date: 01/21/25 NSR at 82bpm. Possible anterior infarct (cited on or before 09/13/2009 per director clinical information services comparison). Chest X-Ray Date: 05/07/25 FINDINGS: Heart size and pulmonary vasculature are normal. Stable mildly hyperexpanded lungs. No consolidation or pleural effusion seen. IMPRESSION: No acute findings. Echocardiogram Date: 12/06/23 EF 65-70%. LV wall motion is normal. Grade I DD. Mild MR. Stress Test Date: 12/13/23 Type: nuclear Gated SPECT imaging reveals normal myocardial thickening and wall motion. LVEF > 65%. Lexiscan nuclear cardiac stress test negative for ischemia.
[2025-05-31] MEDS ORDERED: PROPOFOL IV EMULSION 10 MG/ML 20 ML VIAL IV ONE (06:21)
[2025-05-31] MEDS ORDERED: PROPOFOL IV EMULSION 10 MG/ML 100 ML VIAL IV ONE ×3 (06:21→12:33)
[2025-05-31] MEDS ORDERED: DEXAMETHASONE SOD INJ 4 MG/ML VIAL ONE (06:21)
[2025-05-31] MEDS ORDERED: LIDOCAINE 2% 2 ML VIAL/AMP(20MG/ML) INFIL ONE (06:21)
[2025-05-31] MEDS ORDERED: ROCURONIUM BROMIDE 10 MG/ML 5 ML VIAL IV ONE ×3 (06:22→11:39)
[2025-05-31] MEDS ORDERED: LARYING-O-JET KIT (LTA) ONE (06:22)
[2025-05-31] MEDS ORDERED: SUCCINYLCHOLINE CHLORIDE 20 MG/ML 10 ML VIAL IV ONE ×2 (06:22→06:30)
[2025-05-31] MEDS: GABAPENTIN 300 MG CAP PO SCH (06:24)
[2025-05-31] MEDS: LR 60ML/HR IV SCH (06:24)
[2025-05-31] MEDS: ACETAMINOPHEN 500 MG TAB PO SCH (06:24)
[2025-05-31] MEDS ORDERED: GLYCOPYRROLATE 0.2 MG/ML VIAL ONE ×2 (06:28→13:03)
[2025-05-31] MEDS ORDERED: PHENYLEPHRINE HCL 10 MG/ML VIAL ONE ×2 (06:34→06:36)
[2025-05-31] MEDS ORDERED: REMIFENTANIL HCL 1 MG VIAL IV ONE ×2 (06:43→10:47)
[2025-05-31] MEDS ORDERED: HYDROmorphone INJ 2 MG/ML SYR/VIAL IV PRN ×2 (06:48→15:06)
[2025-05-31] MEDS ORDERED: ONDANSETRON INJ 2 MG/ML 2 ML VIAL IV PRN ×2 (06:48→15:05)
[2025-05-31] MEDS ORDERED: ATROPINE SULFATE 0.1 MG/ML 10ML SYR IV PRN ×2 (06:48→15:06)
[2025-05-31] MEDS ORDERED: HYDROmorphone INJ 1 MG/ML SYRINGE IV PRN (06:48)
[2025-05-31] MEDS: LR 15ML/HR IV SCH (06:50)
[2025-05-31] MEDS ORDERED: PHENYLEPHRINE 100MCG/ML 5ML SYR ONE (06:56)
[2025-05-31] MEDS ORDERED: KETAMINE HCL 10MG/ML SYR ONE (06:59)
--- NOTE | 2025-05-31 07:18 | History & Physical Bridge Note ---
Date of Service May 31, 2025 History & Physical Bridge Note I have examined the patient, reviewed the History & Physical and in the interval since the performance of the History & Physical I have noted the following changes of clinical significance: no changes noted
[2025-05-31] MEDS: TRANEXAMIC ACID / 0.7% NACL 1000MG/100ML BAG IV ONE (08:00)
[2025-05-31] MEDS: VANCOMYCIN HCL 1000MG/20ML VIAL ONE (08:58)
[2025-05-31] MEDS ORDERED: ceFAZolin 330 MG/ML 1 GM VIAL ONE (10:23)
[2025-05-31] MEDS ORDERED: HYDROmorphone INJ 2 MG/ML SYR/VIAL ONE (10:24)
[2025-05-31] MEDS ORDERED: ONDANSETRON INJ 2 MG/ML 2 ML VIAL ONE (11:46)
[2025-05-31] MEDS ORDERED: ePHEDrine sulfate 50 MG/5 ML SYR ONE ×2 (11:46)
[2025-05-31] MEDS ORDERED: TRANEXAMIC ACID / 0.7% NACL 1000MG/100ML BAG IV ONE (12:06)
[2025-05-31] MEDS: THROMBIN 5000 UNITS KIT ONE (12:56)
[2025-05-31] MEDS: GELATIN SPONGE 12-7MM ONE (12:56)
[2025-05-31] MEDS: BUPIVACAINE/EPINEPHRINE 0.5% MPF 1:200,000 30 ML VIAL ONE (12:59)
[2025-05-31] MEDS: FLOSEAL HEMOSTATIC MATRIX 10ML TOP ONE (12:59)
[2025-05-31] MEDS ORDERED: NEOSTIGMINE METHYLSULFATE 1 MG/ML 10ML VIAL ONE (13:03)
[2025-05-31] MEDS ORDERED: SUGAMMADEX SODIUM 200 MG/2 ML VIAL IV ONE (13:44)
--- NOTE | 2025-05-31 13:47 | Post Operative Brief Note ---
PG Immediate Post Op with CF Date of Surgery May 31, 2025 Pre & Post Diagnosis Operation Date: 05/31/25 07:30 Pre-Op Diagnosis: Radiculopathy due to Disorder of Intervertebral Disc of Lumbar Spine Post-Op Diagnosis: Radiculopathy due to Disorder of Intervertebral Disc of Lumbar Spine I identified the patient and participated in the time-out.: Yes Procedure Operation Date: 05/31/25 07:30 Actual Procedures p L2-L3 Lateral Lumbar Interbody Fusion, L2-L3 Decompression and Fusion Instrumentation, Remove Hardware - L3,L4,L5,S1, Spinal Cord Monitoring(Not Applicable) - Serge Calvo MD Surgeon Serge Calvo MD Optometrist none Estimated Blood Loss 750 Findings Consistent with Post-Op Diagnosis Specimens Specimen Description: none per surgeon
[2025-05-31] MEDS ORDERED: DO NOT ADMINISTER FLU VACCINE PRN (13:48)
[2025-05-31] MEDS ORDERED: MAGNESIUM HYDROXIDE SUSP 30 ML UDC PO PRN (13:48)
[2025-05-31] MEDS ORDERED: ONDANSETRON 4 MG OD TAB PO PRN (13:48)
[2025-05-31] MEDS ORDERED: ALUMINUM/MAGNESIUM SUSP 30 ML UDC PO PRN (13:48)
[2025-05-31] MEDS ORDERED: DO NOT ADMINISTER PNEUMOCOCCAL VACCINE PRN (13:48)
[2025-05-31] MEDS ORDERED: ACETAMINOPHEN 1,000 MG/100 ML VIAL IV PRN (13:48)
[2025-05-31] MEDS ORDERED: METOCLOPRAMIDE HCL INJ 5 MG/ML 2 ML VIAL IV PRN (13:48)
[2025-05-31] MEDS ORDERED: ACETAMINOPHEN 500 MG TAB PO PRN (13:48)
[2025-05-31] MEDS ORDERED: SOD PHOSPHATE/SOD BIPHOSPHATE ENEMA 132 ML BTL PR PRN (13:48)
[2025-05-31] MEDS ORDERED: diphenhydrAMINE Capsule 25 MG CAP PO PRN (13:48)
[2025-05-31] MEDS ORDERED: NALOXONE HCL 0.4 MG/1 ML VIAL/CARP IV PRN (13:48)
[2025-05-31] MEDS ORDERED: PHARMACY GLYCEMIC MGMT CONSULT PRN (13:48)
[2025-05-31] MEDS ORDERED: PROMETHAZINE 12.5 MG/50.5 ML BAG IV PRN (13:48)
[2025-05-31] MEDS ORDERED: LORazepam 0.5 MG TAB PO PRN (13:48)
[2025-05-31] MEDS ORDERED: GLUCOSE 10 TAB/TUBE PO PRN (14:15)
[2025-05-31] MEDS ORDERED: CARBOHYDRATES FOR HYPOGLYCEMIA PO PRN (14:15)
[2025-05-31] MEDS ORDERED: GLUCOSE 40% GEL 15 GM TUBE PO PRN (14:15)
[2025-05-31] MEDS ORDERED: GLUCAGON FOR INJ 1 MG VIAL SQ PRN (14:15)
[2025-05-31] MEDS ORDERED: DEXTROSE 50% 50 ML SYRINGE IV PRN (14:15)
--- NOTE | 2025-05-31 14:16 | Fluoroscopy Report ---
FL lumbar spine 2-3V CLINICAL HISTORY: L2-L3 LATERAL INTERBODY FUSION L2-L3 DECOMPRESSIO COMPARISON STUDY: CT lumbar spine 03/19/2025 FLUOROSCOPY TIME: 250.4 seconds FLUOROSCOPY IMAGES: 11 EXPOSURE DOSE: 146.08 mGy FINDINGS: Patient has history of posterior interbody hi and screw fusion hardware at L3-S1 with L4-L 5 discectomy. Status post removal of the pre-existing hardware with placement of posterior interbody hi and screw fusion at L2-L3. No unexpected opaque foreign bodies IMPRESSION: Fluoroscopic assistance as above. ACT 112: Negative or not required by law. Electronically signed by: Celestine Altman M.D. 05/31/2025 2:13 PM
--- NOTE | 2025-05-31 15:04 | Pharmacy Report ---
Pharmacy Glycemic Short Note 2 - Date of Service May 31, 2025 - Glycemic Short BSG Results (Last 24 hours): 05/31/25 05/31/25 06:22 14:15 POC Glucose 103 H 172 H OUTPATIENT ANTIDIABETIC REGIMEN: * Trulicity 0.75mg SQ weekly * metformin ER 1000mg po q AM HbA1c: 5.5% on 05/07/25 ASSESSMENT: * Estiven is a 80 year old female who was admitted today for lumbar decompression and fusion (POD #0). Pharmacy was consulted for glycemic management postop. * BSG preop was 103mg/dL and postop was 172mg/dL. She did received dexamethasone 12mg IV x 1 preop. Lantus 15 units SQ x 1 was ordered and a weight based bolus insulin regimen with a stress of three was stated. PLAN FOR INPATIENT GLYCEMIC CONTROL: * Hold outpatient diabetes medications * Basal insulin * Lantus 15 units SQ x 1. Will assess further need with additional BSG readings * Bolus insulin * NovoLog per scale ACHS or Q6hrs while NPO * Goal Range: Low 110 mg/dL - High 140 mg/dL * Correction Factor: 30 mg/dL/unit * Nutritional / Prandial insulin per carb ratio of 1 unit per 10 grams CHO consumed
[2025-05-31] MEDS: HYDROmorphone INJ 1 MG/ML SYRINGE IV PRN (15:06)
--- NOTE | 2025-05-31 15:13 | Anesthesiology Progress Note ---
Date of Service May 31, 2025 Anesthesia Post Procedure Vital Signs Vital Signs: Temp Pulse Pulse Resp BP Pulse Ox O2 Del Method 05/31/25 15:10 82 14 109/57 L 92 Room Air 05/31/25 15:00 36.4 C L 88 14 102/67 93 Room Air 05/31/25 14:50 79 18 95/63 L 98 Room Air 05/31/25 14:40 77 18 103/62 99 Oxymask 05/31/25 14:30 91 H 12 99/58 L 100 Oxymask 05/31/25 14:20 74 16 117/59 L 100 Oxymask 05/31/25 14:10 80 20 122/61 100 Oxymask 05/31/25 14:00 36.3 C L 73 12 128/62 100 Oxymask 05/31/25 06:14 36.9 C 68 20 134/75 97 Room Air O2 Flow Rate 05/31/25 15:10 05/31/25 15:00 05/31/25 14:50 05/31/25 14:40 2 05/31/25 14:30 4 05/31/25 14:20 4 05/31/25 14:10 6 05/31/25 14:00 6 05/31/25 06:14 Pain Intensity Bilateral Lower Back: Pain Intensity: 6 Lower Back: Pain Intensity: 5 Transfer of Care Handoff Completed per policy Notes Mental Status: alert / awake / arousable Patient Amnestic to Procedure: Yes Nausea / Vomiting: adequately controlled Pain: adequately controlled Airway Patency, RR, SpO2: stable & adequate BP & HR: stable & adequate Hydration State: stable & adequate Anesthetic Complications: no major complications apparent and Pt Satisfied with anesthetic care
[2025-05-31] MEDS ORDERED: CHOLESTYRAMINE LIGHT 4 GM PKT PO PRN (16:22)
[2025-05-31] MEDS: LANTUS PER UNIT CHARGE SC ONE (17:03)
[2025-05-31] MEDS: INSULIN ASPART PER UNIT CHARGE SC SCH (17:04)
--- NOTE | 2025-05-31 17:59 | Consultation ---
Date of Consultation May 31, 2025 Assessment & Plan (1) 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: (2) Diabetes mellitus: (3) HTN (hypertension): (4) Hyperlipidemia: (5) Gastroparesis: (6) Osteoporosis: (7) HALIMA (obstructive sleep apnea): Plan 80 year old female with PMH significant for HTN, dyslipidemia, HALIMA on CPAP, DM2, peripheral neuropathy, gastroparesis, GERD, and radiculopathy due to disorder of intervertebral disc of lumbar spine who is s/p L2-L3 decompression and fusion and removal of hardware L3-S1 on 05/31/[address] Calvo. We have been consulted for post operative medical management. 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 POD#0 L2-L3 decompression and fusion and removal of hardware L3-S1 on 05/31/[address] Calvo Activity level, pain control, DVT prophylaxis, bowel regimen per primary team Monitor am labs for post op anemia (preop Hgb 12.5) - EBL 750mL PT/OT in am Encourage incentive spirometer DMII On metformin at home - holding while inpt BSG ACHS and SSI while inpt Glycemic pharmacy consulted by primary team Hypertension Continue lisinopril Monitor for post op hypotension taiwo given EBL 750mL Hyperlipidemia Continue atorvastatin GERD Continue pantoprazole Gastroparesis Continue zofran Osteoporosis Continue vitamin D and calcium supplements HALIMA Continue CPAP HS DVT Prophylaxis: SCDs per primary team Code Status: FULL CODE PCP: Rebecca Arroyo Thank you for this consultation. We will continue to follow this patient with you. [facility] via the role in [employer] - please don't hesitate to reach out with questions. Patient seen in collaboration with Dr Us. Please see addendum. I spent a total of 60 minutes coordinating, documenting and providing care for this patient excluding time spent in the performance of separately billed services or time spent by another provider/QHP. Supervising Physician Co-Signing Physician Notes Attending addendum: The patient was seen and examined in medical floor She is status post L2-L3 lateral lumbar interbody fusion, L2-L3 decompression and fusion, removal of hardware L3-L4 L5-S1 and spinal cord monitoring today Has been complaining of pain right lower back with radiation Denies any other symptoms On examination Lying in bed with minimal distress due to back pain Hemodynamically stable Chest was clear to auscultate bilaterally HeartS1-S2, regular Abdomenbenign Extremitiesno edema Her preop labs, imaging studies, EKG and echo reviewed Remains medically stable following above procedure which were managed by orthospine Her other significant medical conditions remained stable as mentioned above Will follow her labs and electrolytes Agree with assessment and plan as outlined above by Shima RUANO and take the full responsibility of care in the hospital DR Von Us History of Present Illness Requesting Physician: Serge Calvo MD Reason for Consultation: post op medical management Attending Physician: Serge Calvo MD History of Present Illness 80 year old female with PMH significant for HTN, dyslipidemia, HALIMA on CPAP, DM2, peripheral neuropathy, gastroparesis, GERD, and radiculopathy due to disorder of intervertebral disc of lumbar spine who is s/p L2-L3 decompression and fusion and removal of hardware L3-S1 on 05/31/[address] Calvo. We have been consulted for post operative medical management. Patient reports she is doing well overall. States this is her second back surgery that she needed due to intractable pain and she feels better today than she did right after her first surgery. Reports 5/10 lumbar back pain that radiates into her right hip. Denies radiculopathy in the right leg which is an improvement from before surgery. Denies dizziness, lightheadedness, chest pain, SOB, N/V. Allergies Allergy/AdvReac Type Severity Reaction Status Date / Time nickel Allergy Intermediate Rash/bleedi Verified 05/31/25 06:18 ng Home Medications Medication Instructions Recorded Confirmed Type aspirin 81 mg tablet,delayed 81 mg PO HS 11/09/19 05/31/25 History release (Mars Low Dose Aspirin) atorvastatin 10 mg tablet 10 mg PO QPM 11/09/19 05/31/25 History lisinopril 10 mg tablet 10 mg PO QAM 11/09/19 05/31/25 History valacyclovir 500 mg tablet 500 mg PO Q OTHER DAY genital 11/09/19 05/31/25 History (Valtrex) herpes vit C 250 mg-vit E 90 mg-zinc 40 1 tab PO QAM 11/09/19 05/31/25 History mg-copper 1 re-qlqiie-oskayv capsule (PreserVision AREDS-2) vitamin B complex 1 tab PO QAM 11/09/19 05/31/25 History gabapentin 300 mg capsule 600 mg PO UD 09/06/21 05/31/25 History coQ10 (ubiquinol) 100 mg capsule 100 mg PO Q OTHER DAY 09/04/23 05/31/25 History (Qunol Quan CoQ10) dulaglutide 0.75 mg/0.5 mL 0.75 mg subcut UD 09/04/23 05/31/25 History subcutaneous pen injector (Trulicity) ferrous sulfate 142 mg (45 mg 142 mg PO QPM 09/04/23 05/31/25 History iron) tablet,extended release omega 9-ewv-jed-fish oil 1,000 mg 1 cap PO TID 09/04/23 05/31/25 History (120 mg-180 mg) capsule (Fish Oil) ondansetron HCl 4 mg tablet 4 mg PO Q8H PRN Nausea 09/04/23 05/31/25 History pantoprazole 20 mg tablet,delayed 20 mg PO QAM 09/04/23 05/31/25 History release metformin 500 mg tablet,extended 500 mg PO BID 12/05/23 05/31/25 History release 24 hr Lactobacillus acidophilus 250 1,000 mmu cells PO Q OTHER DAY 01/01/25 05/31/25 History million cell capsule (Probiotic Acidophilus) cholecalciferol (vitamin D3) 50 50 mcg PO QAM 01/01/25 05/31/25 History mcg (2,000 unit) capsule magnesium oxide 500 mg PO QPM 01/01/25 05/31/25 History zinc acetate 25 mg (zinc) capsule 30 mg PO QPM 01/01/25 05/31/25 History (Galzin) cholestyramine (with sugar) 4 gram 1 ea PO DAILY PRN Diarrhea 02/26/25 05/31/25 History oral powder bisacodyl 5 mg tablet,delayed 5 mg PO DAILY PRN Constipation 03/23/25 05/31/25 History release (Dulcolax (bisacodyl)) De-3 [place] 3 1 tab PO TID 04/30/25 05/31/25 History Medical Thc 1 unit PO DAILY PRN Pain 04/30/25 05/31/25 History calcium 315 mg (as 1 tab PO QPM 04/30/25 05/31/25 History citrate)-vitamin D3 5 mcg (200 unit) tablet (Calcium Citrate + D) glucosamine sulf dipot 1 cap PO BID 04/30/25 05/31/25 History chlr,msm,chond 550 mg-C 30 mg-mary 1 mg capsule (Glucosamine Chondroitin) pwrnyvutqssl-Yx-ohmu-minerals 27 1 tab PO DAILY 04/30/25 05/31/25 History mg-0.4 mg tablet Patient History Medical History (Updated 05/31/25 @ 17:54 by BINDU Moore) Depression RLS (restless legs syndrome) Dyslipidemia Anxiety Arthritis of ankle, right Schatzki's ring De Quervain's tenosynovitis, right Left carpal tunnel syndrome Arthritis of foot Obesity Neurogenic claudication due to lumbar spinal stenosis Urge incontinence of urine Lumbar spinal stenosis due to adjacent segment disease after fusion procedure Retrolisthesis of vertebrae Postlaminectomy syndrome of lumbosacral region Sacroiliac joint pain Encounter for pre-operative examination Neurogenic claudication due to lumbar spinal stenosis History of anemia (2020) Post-op after back surgery Carotid artery plaque Hx of hematuria (02/2025) Follows with [facility] urology Macular degeneration "Stable" x 20 years Dry eye syndrome "Severe" Lumbar spinal stenosis due to adjacent segment disease after fusion procedure Gastroparesis (2019) Postlaminectomy syndrome of lumbosacral region Osteoporosis will start new med (evinty) after surgery Sacroiliac joint pain Essential tremor "Whole body" tremors after 2020 back surgery Follows with [facility]/Dr. Marysol Bruce Hx of migraines Resolved after menopause Overactive bladder Gets botox treatments RLS (restless legs syndrome) Schatzki's ring Neuropathy of foot R > L foot/leg numbness/pain GERD (gastroesophageal reflux disease) Diabetes mellitus, type 2 Currently on trulicity (states may start ozempic due to insurance issues) Anxiety Controlled without meds Depression Controlled without meds Hypertension Hyperlipidemia Sleep apnea CPAP (compliant) Syncope Three episodes in 2014. Cardiac workup included echo, event monitor and tilt- table test, all negative. Determined to be "swallow syncope," as episodes were preceded by patient ingesting hot liquid. Follows with Gabbi Mcmullen ([facility] in [place], Dr. Cristiano Greenfield). 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 No episodes since 2016. Surgical History Hx of cystoscopy (03/2025) due to hematuria Hx laparoscopic cholecystectomy (12/2023) [facility] History of open reduction and internal fixation (ORIF) procedure (10/2000) right wrist, due to fracture- had external fixator and pins- returned to surgery for carpal tunnel release shortly after History of tonsillectomy and adenoidectomy (1951) History of back surgery L3-S1 decompression/fusion (10/23/21): Grade 2 view, MAC#3, ETT 7.0 at [facility] History of tooth extraction with implants Hx of cataract extraction R/L History of ankle surgery (12/08/19) Right ankle fusion: Grade view 2, MAC#3, ETT 7.5 at [facility] History of anesthesia reaction Post-op brain fog specifically after 2019 right ankle surgery. She states that when "pre-sedation"/medication is avoiding prior to anesthesia induction, she does better postoperatively and requests not to be given medication/"being awake" as long as possible until anesthesia induction. H/O breast biopsy (1994) L breast, metal marker remains H/O release of tendon (2012) right wrist History of carpal tunnel release (10/2000) Right S/P Botox injection Bladder (for urinary incontinence) History of esophageal dilatation History of esophagogastroduodenoscopy (EGD) History of colonoscopy History of endoscopic sinus surgery History of cardiac cath (2008) No stents H/O tubal ligation Family History Unknown Heart disease Lymphoma Father Hypertension Other No family history of adverse response to anesthesia Social History Smoking Status: Never smoker Second Hand Exposure: No; Do You Dip or Chew Tobacco: No; Tobacco Cessation Education Requested by Patient: No Hx Alcohol Use: Yes Alcohol type: beer, wine and hard liquor Hx Substance Use: Yes Substance Use Type Other:: medical pot >6months ago Preferred Language: Moroccan Communication Ability: Effective Visual Impairment: No Limitations Superintendent Operations Division Required: No Beliefs That Will Affect Care: None Current Living Situation: Alone Other Information That Helps Us Care for You: No Feels Safe at Home: Yes Safety Concerns: Feels Safe At This Time Assistive Devices: Cane, CPAP and Glasses Assistive Devices Comment: readers Review of Systems Review of Systems: All systems reviewed & are unremarkable except as noted in HPI & below Physical Exam Physical Exam: General/Psych: WD/WN, sitting up in bed, NAD, conversing easily, sleepy Head: normocephalic, atraumatic Eyes: normal inspection, PERRL, conjunctivae pink, anicteric sclerae ENT: external ear and nose normal, oropharynx normal Neck: normal visual inspection, trachea midline Respiratory: normal respiratory effort, lungs clear to auscultation, no wheeze/rales/rhonchi, no accessory muscle use Cardiovascular: regular rate and rhythm, no murmur/rub/gallop, no JVD Extremities: no cyanosis or clubbing, normal peripheral pulses, no BLE edema, sensation intact to BLE Abdomen/GI: normal bowel sounds, soft, nontender Neurologic/MSK: A+Ox3, motor strength 5/5, moves all extremities Skin: no rashes, normal color, warm and dry, island dressing c/d/i Results & Data Vital Signs (Past 12 Hours) Vital Signs Temp Pulse Pulse Resp BP Pulse Ox O2 Del Method 05/31/25 17:17 36.7 C 89 16 117/70 100 Nasal Cannula 05/31/25 16:22 36.8 C 86 14 108/68 100 Nasal Cannula 05/31/25 15:30 80 12 101/62 98 Nasal Cannula 05/31/25 15:20 73 14 110/60 97 Room Air 05/31/25 15:10 82 14 109/57 L 92 Room Air 05/31/25 15:00 36.4 C L 88 14 102/67 93 Room Air 05/31/25 14:50 79 18 95/63 L 98 Room Air 05/31/25 14:40 77 18 103/62 99 Oxymask 05/31/25 14:30 91 H 12 99/58 L 100 Oxymask 05/31/25 14:20 74 16 117/59 L 100 Oxymask 05/31/25 14:10 80 20 122/61 100 Oxymask 05/31/25 14:00 36.3 C L 73 12 128/62 100 Oxymask 05/31/25 06:14 36.9 C 68 20 134/75 97 Room Air O2 Flow Rate 05/31/25 17:17 2 05/31/25 16:22 2 05/31/25 15:30 2 05/31/25 15:20 05/31/25 15:10 05/31/25 15:00 05/31/25 14:50 05/31/25 14:40 2 05/31/25 14:30 4 05/31/25 14:20 4 05/31/25 14:10 6 05/31/25 14:00 6 05/31/25 06:14 (2) Diabetes mellitus Diabetes mellitus complication detail: with unspecified neuropathy Diabetes mellitus complication status: with neurologic complications Diabetes mellitus alf insulin use: without alf use Diabetes mellitus type: type 2 Qualified Code(s): E11.40 - Type 2 diabetes mellitus with diabetic neuropathy, unspecified (3) HTN (hypertension) Hypertension type: primary hypertension Qualified Code(s): I10 - Essential (primary) hypertension (6) Osteoporosis Osteoporosis type: age-related Presence of current pathological fracture: without current pathological fracture Qualified Code(s): M81.0 - Age-related osteoporosis without current pathological fracture
[2025-05-31] MEDS ORDERED: ARTIFICIAL TEARS OP OINT 3.5 GM TUBE OP PRN (18:20)
[2025-05-31] MEDS: HYDROmorphone INJ 0.5 MG/0.5 ML SYR IV PRN (20:03)
[2025-05-31] MEDS: DOCUSATE SODIUM/SENNA 50/8.6MG TAB PO SCH (20:04)
[2025-06-01] MEDS: POLYETHYLENE (MIRALAX) 17 GM PACK PO SCH (05:40)
[2025-06-01] MEDS: ONDANSETRON INJ 2 MG/ML 2 ML VIAL IV PRN (05:57)
[2025-06-01 06:36] LABS: Hematocrit (blood only) 27.5 % (37.0-47.0); Hemoglobin 9.7 g/dl (12.0-16.0); Mean Corpuscular Hemoglobin 33.2 pg (25.0-34.0); Mean Corpuscular Volume 94.2 fL (80.0-100.0); Platelet Count 140 K/uL (130-400); RDW Standard Deviation 43.3 fL (36.4-46.3); Red Blood Count 2.92 M/uL (4.20-5.40); White Blood Count 11.31 K/ul (4.8-10.8)
[2025-06-01 06:52] LABS: Anion Gap 5.0 (3-11); Blood Urea Nitrogen 12.0 mg/dl (6-23); Calcium 8.1 mg/dl (8.6-10.3); Carbon Dioxide 29.0 mmol/L (21-32); Chloride 100.0 mmol/L (98-107); Creatinine Clr Calc Pharmacy 59.2 ml/min; Glucose 119.0 mg/dl (70-99(Fasting)); Potassium 5.0 mmol/L (3.5-5.1); Sodium 134.0 mmol/L (136-145)
[2025-06-01] MEDS: GABAPENTIN 300 MG CAP PO SCH (08:21)
[2025-06-01] MEDS: CEROVITE ADV FORMULA TAB PO SCH (08:22)
--- NOTE | 2025-06-01 11:39 | Hospitalist Progress Note ---
Date of Service June 01, 2025 Assessment & Plan (1) 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: (2) Diabetes mellitus: (3) HTN (hypertension): (4) Hyperlipidemia: (5) Gastroparesis: (6) Osteoporosis: (7) HALIMA (obstructive sleep apnea): Plan 80 year old female with PMH significant for HTN, dyslipidemia, HALIMA on CPAP, DM2, peripheral neuropathy, gastroparesis, GERD, and radiculopathy due to disorder of intervertebral disc of lumbar spine who is s/p L2-L3 decompression and fusion and removal of hardware L3-S1 on 05/31/[address] Calvo. 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 POD#1 L2-L3 decompression and fusion and removal of hardware L3-S1 on 05/31/[address] Calvo Pain control Hb is 9.7 today (preop Hgb 12.5) - EBL 750mL Post operative anemia, likely due to blood loss Monitor Hb PT/OT Discussed with RN. Remove cross DMII Home metformin on hold while inpatient BSG ACHS and SSI while inpt Hypertension Stable Continue lisinopril Hyperlipidemia Continue atorvastatin GERD Continue pantoprazole Gastroparesis Continue zofran Osteoporosis Continue vitamin D and calcium supplements HALIMA Continue CPAP HS DVT Prophylaxis: SCDs per primary team Code Status: FULL CODE I spent a total of 45 minutes coordinating, documenting and providing care for this patient excluding time spent in performance of separately billed services Admission and Anticipated Discharge Date Admission Date: May 31, 2025 Subjective Patient seen and examined Reports back pain still going down right leg No other complaints on ROS at this time Physical Exam Constitutional: + well hydrated; no acute distress Eyes: PERRL, conjunctivae normal, anicteric sclerae ENMT: external ear and nose normal, oropharynx normal Respiratory: normal respiratory effort, lungs clear to auscultation Cardiovascular: Rate/Rhythm: regular rate and regular rhythm Gastrointestinal (Abdomen): normal bowel sounds, soft, nontender, no hepatosplenomegaly Musculoskeletal: Clean dressing over low back surgical site Neurologic: PERRL, EOMI, accommodation nl, no face palsy, no dysarthria Psychiatric: A+Ox3, euthymic affect Genitourinary: Cross in situ Results & Data Results & Data Vital Signs (Past 12 Hours) Vital Signs Temp Pulse Pulse Resp BP Pulse Ox O2 Del Method 06/01/25 07:21 36.9 C 78 16 122/65 97 CPAP 06/01/25 03:00 36.7 C 76 20 112/58 L 96 Room Air Laboratory Results Abnormal lab results 05/31/25 05/31/25 05/31/25 Range/Units 14:15 16:46 21:07 WBC (4.8-10.8) K/ul RBC (4.20-5.40) M/uL Hgb (12.0-16.0) g/dl Hct (37.0-47.0) % Sodium (136-145) mmol/L Glucose (70-99(Fasting)) mg/dl POC Glucose 172 H 226 H 137 H (70-99) mg/dl Calcium (8.6-10.3) mg/dl 06/01/25 06/01/25 06/01/25 Range/Units 05:52 07:31 11:33 WBC 11.31 H (4.8-10.8) K/ul RBC 2.92 L (4.20-5.40) M/uL Hgb 9.7 L (12.0-16.0) g/dl Hct 27.5 L (37.0-47.0) % Sodium 134 L (136-145) mmol/L Glucose 119 H (70-99(Fasting)) mg/dl POC Glucose 118 H 137 H (70-99) mg/dl Calcium 8.1 L (8.6-10.3) mg/dl (2) Diabetes mellitus Diabetes mellitus type: type 2 Diabetes mellitus terminal system operator insulin use: without terminal system operator use Diabetes mellitus complication status: with neurologic complications Diabetes mellitus complication detail: with unspecified neuropathy Qualified Code(s): E11.40 - Type 2 diabetes mellitus with diabetic neuropathy, unspecified (3) HTN (hypertension) Hypertension type: primary hypertension Qualified Code(s): I10 - Essential (primary) hypertension (6) Osteoporosis Osteoporosis type: age-related Presence of current pathological fracture: without current pathological fracture Qualified Code(s): M81.0 - Age-related osteoporosis without current pathological fracture
--- NOTE | 2025-06-01 11:55 | Pharmacy Report ---
Pharmacy Glycemic Short Note 2 - Date of Service June 01, 2025 - Glycemic Short BSG Results (Last 24 hours): 05/31/25 05/31/25 05/31/25 14:15 16:46 21:07 Glucose POC Glucose 172 H 226 H 137 H 06/01/25 06/01/25 06/01/25 05:52 07:31 11:33 Glucose 119 H POC Glucose 118 H 137 H OUTPATIENT ANTIDIABETIC REGIMEN: * Trulicity 0.75mg SQ weekly * metformin ER 1000mg po q AM HbA1c: 5.5% on 05/07/25 ASSESSMENT: 06/01: * Estiven received a total of 18 units of insulin yesterday (15 units were basal and 3 units were bolus) * Fasting BSG was 118mg/dL. Since no additional steroids are ordered post op, will not continue basal insulin at this time. CR was also loosened to prevent hypoglycemia. 05/31: * Estiven is a 80 year old female who was admitted today for lumbar decompression and fusion (POD #0). Pharmacy was consulted for glycemic management postop. * BSG preop was 103mg/dL and postop was 172mg/dL. She did received dexamethasone 12mg IV x 1 preop. Lantus 15 units SQ x 1 was ordered and a weight based bolus insulin regimen with a stress of three was stated. PLAN FOR INPATIENT GLYCEMIC CONTROL: * Hold outpatient diabetes medications * Basal insulin * NONE * Bolus insulin * NovoLog per scale ACHS or Q6hrs while NPO * Goal Range: Low 110 mg/dL - High 140 mg/dL * Correction Factor: 30 mg/dL/unit * Nutritional / Prandial insulin per carb ratio of 1 unit per 15 grams CHO consumed
[2025-06-01] MEDS: HYDROmorphone INJ 1 MG/ML SYRINGE IV PRN (12:47)
--- NOTE | 2025-06-01 16:04 | Operative Report ---
PG Post Operative Report Pre & Post Diagnosis Operation Date: 05/31/25 07:30 Pre-Op Diagnosis: Radiculopathy due to Disorder of Intervertebral Disc of Lumbar Spine Post-Op Diagnosis: Radiculopathy due to Disorder of Intervertebral Disc of Lumbar Spine I identified the patient and participated in the time-out.: Yes Procedure Operation Date: 05/31/25 07:30 Actual Procedures p L2-L3 Lateral Lumbar Interbody Fusion, L2-L3 Decompression and Fusion Instrumentation, Spinal Cord Monitoring(Not Applicable) - Serge Calvo MD s Remove Hardware - L3,L4,L5,S1,(Not Applicable) - Serge Calvo MD Surgeon Serge Calvo MD Car Oiler none Estimated Blood Loss 750 Findings Consistent with Post-Op Diagnosis Specimens none Description of Procedure 1. L2-3 right lateral interbody arthrodesis. (11070) 2. L2-3 right lateral interbody cage, NuVasive cohere XL 10 x 18 x 50 mm lordotic. (98895) 3. L2-3 posterior nonsegmental instrumentation, NuVasive reline. (82812) 4. L2-3 posterior arthrodesis. (95438) 5. Removal of segmental instrumentation L3-L4-L5-S1. (07022) 6. Inspection of arthrodesis L3-4, L4-5, L5-S1. (89032) 7. Products of decompression/local bone graft. (01564) Patient was taken operating room and after adequate anesthesia was carefully positioned on the left lateral decubitus position right side up for a lateral approach to the L2-3 level. Patient was secured to the table in routine fashion, fluoroscopy was used to make proper alignment, a preprepped was performed. The approximate location of the incision was then marked using fluoroscopy, followed by prep and drape. Transverse incision was made on the right flank region and through this I advanced down into the subcutaneous region and into the retroperitoneal area without any issues. I was able to palpate the psoas, I advanced the initial dilator from the NuVasive set down onto the lateral aspect of the L2-3 interspace, this was confirmed fluoroscopically and also through monitoring. I was able to advance a guidewire into the disc space under fluoroscopic control, and from here then added the additional dilators. Once noting this was the proper location using fluoroscopy I then inserted the access apparatus. Additional images were obtained with fluoroscopy, the apparatus was secured to the table and I began the procedure in the lateral aspect of L2-3. Lateral annulus was incised followed by then insertion of a variety of instruments to elevate the disc space and L2 using a combination of dilators and also instruments to remove what was remaining disc material and cartilage from the endplates. This process continued until I was able to select sizes using trials selecting the size cage as noted. I continued to prep the region using combination of fly, followed by insertion of the cage and with additional fusion materials with excellent position on AP and lateral views. Final images were obtained, vancomycin powder was placed, access apparatus was removed no issues were noted, I then closed the operative site with 0 and 2-0 Vicryl suture bogdan for the skin. Sterile dressing was applied, the patient was then repositioned onto the Gunnar frame. Fluoroscopy was brought in I then marked for the approximate location of the incision to address the hardware removal and also the L2-3 level. Prep and drape was performed followed by then a longitudinal incision utilizing portions of the prior incision, and this was advanced down through the subtenons tissues then onto either side of the spinous processes. I then advanced this out to the hardware L3-S1 bilaterally, and also exposed up to the L2 region for insertion of the hardware. Time was then spent removing some of the bone encompassing the hardware, the setscrews were released, as were the rods. Inspection of the fusion did not reveal any evidence of pseudoarthrosis, no motion could be detected on attempts at distraction, all pedicle screws were then removed. I then inserted new pedicle screws in the L3 location bilaterally, and then used fluoroscopy to insert 2 pedicle screws at L2, all screws were 6.5 mm in diameter 50 mm in length. The fusion surfaces had been decorticated including the facet joints, rods were then inserted I applied slight amount of distraction to address slight amount of scoliosis, all setscrews were locked down. The fusion materials which included some of the bone removed from removal of the hardware, local bone graft, was then placed extending from L2-L3. Vancomycin powder was placed, the operative site had been thoroughly irrigated, and operative site was closed using 2 layers of 0 Vicryl sutures followed by 2-0 Vicryl sutures and bogdan for the skin. Sterile dressings was applied, the patient was taken to recovery room in satisfactory condition. I attest to the content of the Intraoperative Record and any orders documented therein. Any exceptions are noted below.
[2025-06-02 07:33] VITALS: RESP 16
[2025-06-02 07:48] LABS: Hematocrit (blood only) 27.0 % (37.0-47.0); Hemoglobin 9.5 g/dl (12.0-16.0); Mean Corpuscular Hemoglobin 33.3 pg (25.0-34.0); Mean Corpuscular Volume 94.7 fL (80.0-100.0); Platelet Count 143 K/uL (130-400); RDW Standard Deviation 43.5 fL (36.4-46.3); Red Blood Count 2.85 M/uL (4.20-5.40); White Blood Count 8.74 K/ul (4.8-10.8)
[2025-06-02 08:08] LABS: Anion Gap 6.0 (3-11); Blood Urea Nitrogen 12.0 mg/dl (6-23); Calcium 8.5 mg/dl (8.6-10.3); Carbon Dioxide 28.0 mmol/L (21-32); Chloride 96.0 mmol/L (98-107); Creatinine Clr Calc Pharmacy 64.7 ml/min; Glucose 114.0 mg/dl (70-99(Fasting)); Potassium 4.1 mmol/L (3.5-5.1); Sodium 130.0 mmol/L (136-145)
[2025-06-02] MEDS ORDERED: DOCUSATE SODIUM/SENNA 50/8.6MG TAB PO SCH (11:15)
[2025-06-02] MEDS: FAMOTIDINE 20 MG TAB PO PRN (12:38)
--- NOTE | 2025-06-02 15:00 | Hospitalist Progress Note ---
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 POD#2 L2-L3 decompression and fusion and removal of hardware L3-S1 on 05/31/[address] Calvo Pain control Hb is 9.5 today and was 9.7 yesterday (preop Hgb 12.5) - EBL 750mL Post operative anemia, likely due to blood loss Monitor CBC as an outpatient PT/OT Cervantes removed yesterday DMII Home metformin on hold while inpatient, restart as outpatient BSG ACHS and SSI while inpt Hypertension Stable Continue lisinopril Hyperlipidemia Continue atorvastatin GERD Continue pantoprazole Gastroparesis Continue zofran Osteoporosis Continue vitamin D and calcium supplements HALIMA Continue CPAP HS DVT Prophylaxis: SCDs per primary team Code Status: FULL CODE Disposition: Patient accepted for rehab today. Patient okay for discharge from medical standpoint. Check BMP and CBC within 3 days I spent a total of 51 minutes coordinating, documenting and providing care for this patient excluding time spent in performance of separately billed services Admission and Anticipated Discharge Date Admission Date: May 31, 2025 Subjective Patient seen and examined early this AM. Chart, data and VS reviewed. Pain level improved. Review of Systems Review of Systems: Constitutional- no fever; no chills Eyes- no acute visual changes ENT- no sinus drainage; no pharyngitis Pulmonary- no cough, no wheezing, no shortness of breath Cardiac-anterior chest pain has before, determined to be chest wall pain, no p alpitations, no orthopnea, no dependent edema GI-mild indigestion, no nausea, no vomiting, no diarrhea, no melena, no hematochezia - no dysuria, no hematuria Musculoskeletal-some incisional pain Physical Exam Physical Exam: General- adult elderly female seen at bedside Head- atraumatic Eyes- PERRL, EOMI, anicteric ENT- oropharynx clear Neck- supple, no JVD, no adenopathy, no thyromegaly; Lungs- clear to auscultation and percussion Heart- regular rhythm; no murmur, no gallop, no rub appreciated Abdomen- normal bowel sounds, soft, nontender, no masses or hepatosplenomegaly Extremities- no pretibial edema, no calf tenderness; peripheral pulses intact Neuro- alert, oriented x 3; PERRL, EOMI; good sensation bilateral lower extremities and feet Musculoskeletal: Reproducible discomfort along the left sternal border Skin- warm & dry Results & Data Results & Data Vital Signs (Past 12 Hours) Vital Signs Temp Pulse Resp BP Pulse Ox O2 Del Method 06/02/25 07:32 36.9 C 85 16 101/62 92 Room Air Diagnostic Findings Laboratory Results WBC 8.74 K/ul (4.8-10.8) 06/02/25 06:59 RBC 2.85 M/uL (4.20-5.40) L 06/02/25 06:59 Hgb 9.5 g/dl (12.0-16.0) L 06/02/25 06:59 Hct 27.0 % (37.0-47.0) L 06/02/25 06:59 MCV 94.7 fL (80.0-100.0) 06/02/25 06:59 MCH 33.3 pg (25.0-34.0) 06/02/25 06:59 MCHC 35.2 g/dL (32.0-36.0) 06/02/25 06:59 RDW Std Deviation 43.5 fL (36.4-46.3) 06/02/25 06:59 RDW Coeff of Nam 12.6 % (11.5-14.5) 06/02/25 06:59 Plt Count 143 K/uL (130-400) 06/02/25 06:59 MPV 9.2 fL (9.4-12.4) L 06/02/25 06:59 Sodium 130 mmol/L (136-145) L 06/02/25 06:59 Potassium 4.1 mmol/L (3.5-5.1) 06/02/25 06:59 Chloride 96 mmol/L (98-107) L 06/02/25 06:59 Carbon Dioxide 28 mmol/L (21-32) 06/02/25 06:59 Anion Gap 6 (3-11) 06/02/25 06:59 BUN 12 mg/dl (6-23) 06/02/25 06:59 Creatinine 0.65 mg/dl (0.6-1.2) 06/02/25 06:59 Est Cr Clr Drug Dosing 64.7 ml/min 06/02/25 06:59 eGFR 89.51 06/02/25 06:59 BUN/Creatinine Ratio 18.5 (10-20) 06/02/25 06:59 Glucose 114 mg/dl (70-99(Fasting)) H 06/02/25 06:59 POC Glucose 140 mg/dl (70-99) H 06/02/25 11:40 Calcium 8.5 mg/dl (8.6-10.3) L 06/02/25 06:59 Impressions Lumbar Spine X-Ray 05/31/25 07:30 FL lumbar spine 2-3V CLINICAL HISTORY: L2-L3 LATERAL INTERBODY FUSION L2-L3 DECOMPRESSIO COMPARISON STUDY: CT lumbar spine 03/19/2025 FLUOROSCOPY TIME: 250.4 seconds FLUOROSCOPY IMAGES: 11 EXPOSURE DOSE: 146.08 mGy FINDINGS: Patient has history of posterior interbody hi and screw fusion hardware at L3-S1 with L4-L5 discectomy. Status post removal of the pre-existing hardware with placement of posterior interbody hi and screw fusion at L2-L3. No unexpected opaque foreign bodies IMPRESSION: Fluoroscopic assistance as above. ACT 112: Negative or not required by law. Electronically signed by: Celestine Altman M.D. 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
[2025-06-02 15:37] VITALS: BP 127/75; PULSE 91; TEMP 98.2; O2SAT 91
--- NOTE | 2025-06-02 16:26 | Orthopedic Progress Note ---
Date of Service June 02, 2025 Subjective Patient notes an event of preoperative symptoms but still having some pain more so in the right flank and inguinal area, some low back pain in the incisional region. Pain with range of motion of the right hip with hip flexion, no other notable findings, limited drainage posteriorly, dressing change. Impression: Postop day 2 from lateral cage placement on the right side for L2-3 and posterior instrumentation fusion, removal of instrumentation L3-S1. Plan: Today at this time the patient has been making slow progress, recommended continued physical therapy, placement for rehab might be the best option. Review of Systems All systems reviewed & are unremarkable except as noted in HPI & below. Physical Exam . Results & Data Results & Data Laboratory Results . Diagnostic Findings . PG Care Time/CCT Total # of Minutes Spent Total Time Spent with Patient: Total time spent is greater than 50% in coordination of care (as documented) at patient's floor/unit and/or counseling patient: Coding Level of Care Code 41291 Post Operative Follow-Up
== END 2025-06-02 16:37 | DRG 402 ==
LOC: ASU 06:03 → 3E 13:48